=== PATIENT | female | born 1945 | race Caucasian/White ===

== ENCOUNTER 2019-10-29 09:49 | Emergency (ER) | payer MEDICARE, BC, SELFPAY ==
[2019-10-29 09:57] VITALS: BP 150/71; PULSE 90; RESP 16; TEMP 36.7; O2SAT 100
--- NOTE | 2019-10-29 10:03 | ED.SKABFB ---
HPI - Skin/Abscess/Foreign Bdy General Chief complaint: Skin/Abscess/Foreign Body Stated complaint: itching on right hand Time Seen by Provider: 10/29/19 10:03 Source: patient and RN notes reviewed History of Present Illness HPI narrative: Patient is a 74-year-old female who presents the urgent care with complaints of right hand redness and itching. Patient states that she got stung by a something yesterday and has been using Benadryl cream and itch relief cream. Patient states she has not taken anything oral for her symptoms. Denies of any fever, nausea, vomiting. No other acute complaints. No acute distress noted. Patient read the plan of care. Related Data Home Medications Medication Instructions Recorded Confirmed bupropion HCl 150 mg 24 hr tablet, 150 mg PO QAM 01/02/19 10/29/19 extended release dextroamphetamine 20 mg tablet 20 mg PO DAILY 01/02/19 10/29/19 ibandronate 150 mg tablet 150 mg PO MONTHLY 01/02/19 10/29/19 levothyroxine 100 mcg tablet 100 mcg PO DAILY 01/02/19 10/29/19 liothyronine 5 mcg tablet 5 mcg PO DAILY 01/02/19 10/29/19 lorazepam 1 mg tablet 1 mg PO TID PRN 01/02/19 10/29/19 lorazepam 2 mg tablet 2 mg PO TID PRN 01/02/19 10/29/19 oxycodone-acetaminophen 10 mg-325 1 tablet PO Q8H PRN 01/02/19 10/29/19 mg tablet vilazodone 40 mg tablet 40 mg PO DAILY 01/02/19 10/29/19 Allergies Allergy/AdvReac Type Severity Reaction Status Date / Time pneumococcal vaccine Allergy Unknown Rash Verified 10/29/19 09:56 Sulfa (Sulfonamide Allergy Unknown Rash Verified 10/29/19 09:56 Antibiotics) Review of Systems Review of Systems: Narrative: CONSTITUTIONAL: Denies fever, chills, or sweats. EYES: Denies visual changes, redness, or discharge. ENT: Denies rhinorrhea, congestion, sore throat, or otalgia. CARDIOVASCULAR: Denies chest pain, palpitations, or edema. RESPIRATORY: Denies cough or dyspnea. GASTROINTESTINAL: Denies abdominal pain, nausea, vomiting, or diarrhea. GENITOURINARY: Denies dysuria or hematuria. SKIN: Reports of redness and itching to the right hand due to insect bite MUSCULOSKELETAL: Denies back pain, joint pain, or myalgia. NEUROLOGIC: Denies headache, numbness, or weakness. All other systems reviewed are negative, except as documented in HPI. [facility] Surgical History (Updated 01/02/19 @ 13:19 by Mary Mckeon [facility]) H/O shoulder surgery right History of bladder suspension procedure Social History Social History Smoking status: Never smoker Alcohol intake: never Comments At the time of my signature, I reviewed and agree with the nursing past medical, surgical, social, and family history. There is no relevant family history pertinent to the patient complaint. Exam Narrative: Exam Narrative: GENERAL: This is a well-nourished, well-developed patient, in no apparent distress. HEAD: normocephalic, atraumatic. EYES: PERRL. Sclera clear/white. Vision is grossly intact. EARS: External ears normal NOSE: External nose normal with no obvious nasal discharge, nares without redness, no rhinorrhea. THROAT: Mucous membranes moist NECK: Neck supple SKIN: Moderate erythema measuring approximately 5 x 10 cm to the lateral right hand NEURO: awake, alert, and oriented to person, place and time. There were no obvious focal neurologic abnormalities. EXTREMITIES: Mild edema to right hand with positive strong right radial pulse with capillary refill less than 2 seconds. Range of motion within normal limits without any notable deformity Course Vital Signs Vital signs: Vital Signs Temperature 98.1 F 10/29/19 09:57 Pulse Rate 90 10/29/19 09:57 Respiratory Rate 16 10/29/19 09:57 Blood Pressure 150/71 H 10/29/19 09:57 Pulse Oximetry 100 10/29/19 09:57 Temperature 98.1 F 10/29/19 09:57 Pulse Rate 90 10/29/19 09:57 Respiratory Rate 16 10/29/19 09:57 Blood Pressure 150/71 H 10/29/19 09:57 Pulse Oximetry 100 10/29/19 09:57 Reviewed?patient is
== END 2019-10-29 10:15 | disposition home or self-care (01) ==
PROVIDERS: Emergency Provider Nurse Practitioner Family
DX: T63.481A Toxic effect of venom of other arthropod, accidental (unintentional), initial encounter (principal)
CPT/HCPCS: 99213; G0463

== ENCOUNTER 2020-06-22 13:01 | Outpatient (CLI) | payer MEDICARE, BC, SELFPAY ==
--- NOTE | ~2020-06-22 | MR_ITS ---
EXAMINATION: MR lumbar spine wo con DATE: 06/22/2020 13:45 INDICATION: Low back pain. TECHNIQUE: Magnetic resonance imaging (MRI) of the lumbar spine was performed without intravenous con trast. Sequences included sagittal T2-weighted FSE, sagittal T2-weighted FS FSE, sagittal T1-weighted FSE, and axial T2-weighted FSE. COMPARISON: CT abdomen and pelvis 11/28/2018 FINDINGS: There is 25 degrees levoscoliosis of thoracolumbar spine. There is 3 mm retrolisthesis of L 3 on L4. There is 4 mm anterolisthesis of L5 on S1. There is mild chronic height loss of L5 vertebral body posteriorly. There is severely decreased disc height from L1-L2 through L5-S1 with endplate rem odeling. There is interbody fusion at L2-L3. The distal spinal cord signal intensity is normal. The c onus medullaris is at L1. Again seen are cysts in the liver and kidneys. The following disc levels ar e specifically discussed: L1-L2: The disc is bulging. There is severe right and mild left facet joint osteoarthritis. There is mild bilateral neural foraminal stenosis. There is mild central canal stenosis. L2-L3: The disc is bulging. There is mild bilateral facet joint osteoarthritis. There is mild right n eural foraminal stenosis. There is mild central canal stenosis. L3-L4: The disc is bulging. There is severe bilateral facet joint osteoarthritis. There is mild right and severe left neural foraminal stenosis. There is mild central canal stenosis. L4-L5: The disc is bulging. There is moderate right and severe left facet joint osteoarthritis. There is mild right and moderate left neural foraminal stenosis. There is mild central canal stenosis. L5-S1: The disc is bulging. There is severe bilateral facet joint osteoarthritis. There is mild right and moderate left neural foraminal stenosis. There is mild central canal stenosis. IMPRESSION: 1. Severe lumbar spondylosis. 2. Interbody fusion at L2-L3. 3. Thoracolumbar levoscoliosis. Reviewed, dictated and finalized at location A.
== END 2020-06-22 13:02 | disposition home or self-care (01) ==
DX: M47.896 Other spondylosis, lumbar region (principal); Z98.1 Arthrodesis status
CPT/HCPCS: 72148

== ENCOUNTER 2021-01-01 08:44 | Emergency (ER) | payer MEDICARE, BC, SELFPAY ==
--- NOTE | ~2021-01-01 | XR_ITS ---
EXAMINATION: XR ankle LT min 3V DATE: 01/01/2021 09:08 INDICATION: Lateral left ankle pain TECHNIQUE: Anteroposterior, oblique, mortise, and lateral views of the left ankle were obtained. COMPARISON: None. FINDINGS: Nondisplaced transverse fracture of the lateral malleolus which extends to the medial cortex proximal ly 1 cm below the level of the joint line. No other fractures identified. Alignment remains essential ly anatomic with a congruent ankle mortise. Joint spaces are normal. No left ankle joint effusion. Sm all Achilles and plantar calcaneal enthesophytes with small enthesopathic ossicle at the distal Achil les tendon. Prominent soft tissue swelling overlying the lateral malleolus. IMPRESSION: 1. Nondisplaced transverse fracture of the distal lateral malleolus consistent with a Laureano type A in jury pattern. Reviewed, dictated and finalized at location A. IMPRESSION: 1. Nondisplaced transverse fracture of the distal lateral malleolus consistent with a Laureano type A injury pattern.
[2021-01-01 08:51] VITALS: BP 134/66; PULSE 80; RESP 14; TEMP 36.8; O2SAT 99
--- NOTE | 2021-01-01 10:18 | ED.LOWEXIN ---
HPI - Extremity Injury (Lower) General Chief Complaint: Extremity Injury, Lower Stated Complaint: L ANKLE PAIN AND SWELLING Time Seen by Provider: 01/01/21 08:54 History of Present Illness HPI Narrative: Patient is a 75-year-old female who presents ER with left ankle pain. She slipped down one step last night and suffered inversion injury. She has been able to bear weight on toe-touch. No numbness or tingling. Swelling over the lateral aspect with some mild bruising. Related Data Home Medications Medication Instructions Recorded Confirmed bupropion HCl 150 mg 24 hr tablet, 150 mg PO QAM 01/02/19 10/29/19 extended release dextroamphetamine 20 mg tablet 20 mg PO DAILY 01/02/19 10/29/19 ibandronate 150 mg tablet 150 mg PO MONTHLY 01/02/19 10/29/19 levothyroxine 100 mcg tablet 100 mcg PO DAILY 01/02/19 10/29/19 liothyronine 5 mcg tablet 5 mcg PO DAILY 01/02/19 10/29/19 lorazepam 1 mg tablet 1 mg PO TID PRN 01/02/19 10/29/19 lorazepam 2 mg tablet 2 mg PO TID PRN 01/02/19 10/29/19 oxycodone-acetaminophen 10 mg-325 1 tablet PO Q8H PRN 01/02/19 10/29/19 mg tablet vilazodone 40 mg tablet 40 mg PO DAILY 01/02/19 10/29/19 Allergies Allergy/AdvReac Type Severity Reaction Status Date / Time pneumococcal vaccine Allergy Unknown Rash Verified 01/01/21 08:58 Sulfa (Sulfonamide Allergy Unknown Rash Verified 01/01/21 08:58 Antibiotics) celecoxib [From Celebrex] Allergy Rash Verified 01/01/21 08:58 Review of Systems Review of Systems: All systems reviewed & are unremarkable except as noted in HPI and below Constitutional: Constitutional: Denies chills and Denies fever(s) Musculoskeletal: Musculoskeletal: Reports arthralgias and Reports joint swelling Neurologic: Denies syncope, Denies focal weakness and Denies numbness PMFSH Past Medical History Medical History (Updated 01/01/21 @ 10:22 by Marcin Hathaway MD) Anxiety Depression Fibromyalgia History of open sigmoidectomy Hypothyroidism Mass of kidney benign, robotic resection Nasal fracture Osteoporosis Small bowel obstruction partial Surgical History Surgical History (Updated 01/02/19 @ 13:19 by Mary Mckeon [facility]) H/O shoulder surgery right History of bladder suspension procedure Social History Social History Smoking status: Never smoker Alcohol intake: never Exam Narrative: GENERAL: Well-appearing, well-nourished, and in no acute distress. HEAD: Normocephalic, atraumatic. EXTREMITIES: Normal range of motion. Swelling lateral aspect of the left ankle with tenderness at the base of the lateral malleolus. No tenderness of the foot. Normal dorsalis pedis pulses. SKIN: Warm, dry, no rash. NEURO: No focal deficits. Alert and oriented x3. PSYCH: Normal mood and affect. Course Course Emergency Course: Informed of results. Splint applied by patient pediatric critical care nurse. Vital Signs Vital signs: Vital Signs Temperature 98.3 F 01/01/21 08:51 Pulse Rate 80 01/01/21 08:51 Respiratory Rate 14 01/01/21 08:51 Blood Pressure 134/66 01/01/21 08:51 Pulse Oximetry 99 01/01/21 08:51 Temperature 98.3 F 01/01/21 08:51 Pulse Rate 80 01/01/21 08:51 Respiratory Rate 14 01/01/21 08:51 Blood Pressure 134/66 01/01/21 08:51 Pulse Oximetry 99 01/01/21 08:51 Procedures Orthopedic Splinting/Casting Injury #1: Splinting/Casting Date: 01/01/21 Splinting/Casting Time: 10:20 Side: left Lower Extremity Injury Location: ankle Lower Extremity Immobilizer: stirrup splint Splint: customized in ED Pre-Procedure Neuro Vascular Exam: normal Post-Procedure Neuro Vascular Exam: normal Other Orthopedic Equipment: crutches Discharge Plan Discharge Clinical Impression: Fracture, ankle Patient Disposition: Home, Self-Care Condition: Stable Instructions: Ankle Fracture (ED), Crutch Instructions (ED) Prescriptions: New hydrocodone-acetaminophen 5-325 mg tablet
[2021-01-01 10:57] VITALS: BP 141/69; PULSE 80; RESP 14; TEMP 36.8; O2SAT 100
== END 2021-01-01 10:58 | disposition home or self-care (01) ==
PROVIDERS: Emergency Provider Emergency Medicine
DX: S82.65XA Nondisplaced fracture of lateral malleolus of left fibula, initial encounter for closed fracture (principal); F32.9 Major depressive disorder, single episode, unspecified; M79.7 Fibromyalgia; E03.9 Hypothyroidism, unspecified; M81.0 Age-related osteoporosis without current pathological fracture; X50.1XXA Overexertion from prolonged static or awkward postures, initial encounter
CPT/HCPCS: 29515; 73610; 99284

== ENCOUNTER 2021-03-07 13:48 | Outpatient (RCR) | payer MEDICARE, BC, SELFPAY ==
--- NOTE | 2021-03-07 14:53 | PTOPEVAL ---
PHYSICAL THERAPY EVALUATION/DISCHARGE 03-07-21 Thank you for referring Abimbola Rae to [facility]. The evaluation was completed and she was issued a home exercise program. Additional PT is not indicated, therefore she will be discharged at this time. Please review, sign, date and return this evaluation/discharge report BREANA. I agree with and certify that the following plan of care is medically necessary. Referring Physician Date Attending Provider: Kwan Scott MD PT Outpatient Evaluation Start: 03/07/21 14:00 Document 03/07/21 13:55 NEY (Rec: 03/07/21 14:53 NEY [id number]) Past Medical History Source of Past Medical History Patient Neurological History Hx Neurological Disorders No Significant History Cardiovascular History Hx Cardiac Disorders No Significant History Respiratory History Hx Respiratory Disorders No Significant History Gastrointestinal History Hx Other Gastrointestinal Disorders Yes: surgical repair of perforated colon Genitourinary History Hx Genitourinary Disorders No Significant History Musculoskeletal History Hx Back Pain Yes: L sciatica Hx Other Musculoskeletal Disorders Yes: this admit of L lateral malleoli fracture--non surgical Hematological History Hx Hematological Disorders No Significant History Endocrine History Hx Hypothyroidism Yes: meds HEENT History Hx Tonsillectomy Yes Reproductive History Hx Post Menopausal Yes Evaluation Information Problem Diagnosis L lateral malleoli fracture- non surgical Onset 12-31-20 Subjective Information fell on one step in her home; Query Text:As Reported By Patient/ wore walking boot until 02-16 Family -, dr said could walk without boot; not wearing the boot at all anymore; have not been doing any exercises for ankle, just walking; reports she is not having any problems and do not really think she needs any therapy for her ankle Prior Level of Function Activity Level (Last 3 Months) Occupation retired Home Setting Home Type House,Multiple Levels Mobility Assistive Devices (Used Last 3 None,Cane,Walker, Wheeled Months) Comments Additional Prior Level of Function is doing all her home tasks; Comments is going into her basement without any problems on stairs ; did use cane o
== END 2021-03-08 12:01 | disposition home or self-care (01) ==
LOC: ANHPT 13:48
PROVIDERS: Visit Provider Orthopaedic Surgery
DX: S82.892D Other fracture of left lower leg, subsequent encounter for closed fracture with routine healing (principal)
CPT/HCPCS: 97161

== ENCOUNTER 2023-09-11 09:41 | Emergency (ER) | payer MEDICARE, BC, SELFPAY ==
[2023-09-11] VITALS (8 sets, daily range): BP systolic 128–154; BP diastolic 76–88; PULSE 71–81; RESP 9–15; TEMP 36.5–36.9; O2SAT 100
--- NOTE | ~2023-09-11 | CT_ITS ---
EXAMINATION: CT brain wo con DATE: 09/11/2023 10:09 INDICATION: Dizziness TECHNIQUE: Computed tomography (CT) of the head was performed without intravenous contrast. Sagittal and coronal reconstructions were performed. The mA was adjusted according to patient size. Iterative reconstruction technique was employed. The dose-length product was 605.33 mGy-cm. COMPARISON: head CT dated 03/20/2018 FINDINGS: No acute intracranial hemorrhage, acute infarction or abnormal extra axial fluid collection. There is mild scattered white matter hypoattenuation consistent with chronic small vessel ischemic disease. S ymmetric prominence of the sulci consistent with mild age-appropriate diffuse cerebral volume loss. V entricles are normal and symmetric. No mass/mass effect. Changes of bilateral intraocular lens replac ement. The orbits, paranasal sinuses and mastoid air cells are normal. IMPRESSION: 1. . No acute intracranial process. 2. Age-related changes including mild diffuse on loss and mild scattered white matter hypoattenuation consistent with chronic small vessel ischemic disease. Reviewed, dictated and finalized at location A.
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
--- NOTE | 2023-09-11 09:48 | ECG_ITS ---
Test Date: 2023-09-11 09:57:59 Measurements Intervals [place] Rate: 75 P: 52 NM: 196 QRS: -15 QRSD: 96 T: 46 QT: 367 QTc: 412 Interpretive Statements SINUS RHYTHM LEFT ATRIAL ENLARGEMENT BORDERLINE ECG No previous ECG available for comparison Electronically Signed On 09-11-2023 11:48:57 CDT by Brooks Andersen D.O.
[2023-09-11 10:02] LABS: Basophils Percent Auto 0.4 % (0.2-1.2); Eosinophils Absolute Auto 0.1 K/mm3 (0-0.3); Eosinophils Percent Auto 1.5 % (0-4.4); Hematocrit 38.3 % (37.0-47.0); Hemoglobin 12.7 g/dL (12.0-15.0); Immature Granulocyte Absolute 0.02 K/mm3 (0.00-0.031); Immature Granulocyte Percent A 0.4 % (0-0.5); Lymphocytes Absolute Auto 1.47 K/mm3 (0.9-3.2); Lymphocytes Percent Auto 28.3 % (18.3-44.2); Mean Corpuscular HGB Conc 33.2 g/dl (32-36); Mean Corpuscular Volume 99.5 fl (80-100); Mean Platelet Volume 8.5 fl (7.4-10.4); Monocytes Absolute Auto 0.5 K/mm3 (0.1-0.6); Monocytes Percent Auto 8.9 % (2.6-8.5); Neutrophils Absolute Auto 3.1 K/mm3 (1.3-6.7); Neutrophils Percent Auto 60.5 % (45.5-73.1); Platelet Count Result 265 k/mm3 (150-375); Red Blood Count 3.85 M/mm3 (4.2-5.4); White Blood Count 5.2 K/mm3 (4.5-10.0)
[2023-09-11 10:13] LABS: Alanine Aminotransferase 20 U/L (6-35); Albumin Level 4.5 g/dL (3.5-5.1); Alkaline Phosphatase 72 U/L (38-126); Anion Gap 7 mmol/L (4-12); Aspartate Amino Transferase 31 U/L (14-36); Bilirubin,Total 0.5 mg/dL (0.2-1.3); Blood Urea Nitrogen 19 mg/dL (7-17); Calcium 9.3 mg/dL (8.4-10.2); Carbon Dioxide 31 mmol/L (22-30); Chloride 96 mmol/L (98-107); Estimated CRCL calculation 44 ml/min; Estimated Glomerular Filt Rate > 60; Glucose 90 mg/dL (65-110); Potassium 4.2 mmol/L (3.4-5.0); Sodium 134 mmol/L (137-145)
[2023-09-11] MEDS: SODIUM CHLORIDE 0.9% IV 500 ML 999 ML IV CONT ×2 (10:15→12:02)
[2023-09-11] MEDS: ONDANSETRON INJ 4 MG/2 ML VIAL IV PUSH (10:16)
[2023-09-11] MEDS: MECLIZINE HCL 25 MG TABLET PO (10:17)
--- NOTE | 2023-09-11 10:17 | ED.DIZZY ---
HPI - Dizziness General Chief Complaint: Dizziness Stated Complaint: dizzy Time Seen by Provider: 09/11/23 09:53 Source: patient Mode of arrival: ambulatory Limitations: no limitations History of Present Illness HPI Narrative: This is a 77-year-old female that presents to the emergency department for dizziness. Reports she woke up this morning and sat up. She felt like she was on a boat. Reports a mild headache currently, reports getting a little dizzy again upon sitting up in bed here in the ED. Reports some nausea. Denies vision changes, vomiting, numbness, weakness, chest pain, shortness of breath, palpitations. Related Data Home Medications Medication Instructions Recorded Confirmed aspirin 81 mg tablet,delayed 81 mg PO DAILY 01/04/21 03/16/21 release (Adult Aspirin Regimen) bupropion HCl 300 mg 24 hr tablet, 300 mg PO QAM 01/04/21 03/16/21 extended release (Wellbutrin XL) ibandronate 150 mg tablet (Boniva) 150 mg PO MONTHLY 01/04/21 03/16/21 levothyroxine 50 mcg tablet 50 mcg PO DAILY 01/04/21 03/16/21 (Synthroid) liothyronine 5 mcg tablet (Cytomel) 5 mcg PO DAILY 01/04/21 03/16/21 lorazepam 1 mg tablet 1 mg PO DAILY PRN 01/04/21 03/16/21 turmeric 100 mg-arpit 150 cap PO 01/04/21 03/16/21 mg-olive 50 mg-oreg 150 mg-capryl capsule vilazodone 40 mg tablet (Viibryd) 40 mg PO DAILY 01/04/21 03/16/21 Allergies Allergy/AdvReac Type Severity Reaction Status Date / Time pneumococcal vaccine Allergy Unknown Rash Verified 09/11/23 09:47 Sulfa (Sulfonamide Allergy Unknown Rash Verified 09/11/23 09:47 Antibiotics) celecoxib [From Celebrex] Allergy Rash Verified 09/11/23 09:47 Review of Systems Review of Systems: CONSTITUTIONAL: Denies fever EYES: Denies visual changes CARDIOVASCULAR: Denies chest pain, palpitations, or edema. RESPIRATORY: Denies dyspnea. GASTROINTESTINAL: Reports nausea. Denies vomiting NEUROLOGIC: Reports headache. Denies numbness, or weakness. All systems reviewed & are unremarkable except as noted in HPI and below PMFSH Past Medical History Medical History (Updated 09/11/23 @ 13:46 by Ginger Abel PA-C) Anxiety Depression Fibromyalgia History of open sigmoidectomy Hypothyroidism Mass of kidney benign, robotic resection Nasal fracture Nondisplaced fracture of lateral malleolus of left fibula Laureano A Osteoporosis Small bowel obstruction partial Surgical History Surgical History H/O shoulder surgery right History of bladder suspension procedure Family History Family History Other Depression Social History Social History Smoking status: Never smoker Alcohol intake: never Living arrangements: with family Occupation/Education: retired Gender identity (if verbalized by the patient): Female Exam Narrative: GENERAL: Well-appearing, well-nourished, and in no acute distress. HEAD: Normocephalic, atraumatic. EYES: PERRLA and EOMI. ENT: Nares clear, no rhinorrhea or epistaxis. Mucous membranes moist. Oropharynx without tonsillar hypertrophy exudate or other lesions. Bilateral TMs pearly landaverde non-bulging NECK: Supple. No adenopathy or masses. No JVD CHEST: Clear to auscultation. No respiratory distress. No wheezes rales or rhonchi HEART: Regular rate and rhythm. No murmur heard. Normal peripheral pulses. EXTREMITIES: Normal range of motion. No edema. Strength equal in bilateral upper and lower extremities (5/5) SKIN: Warm, dry, no rash. NEURO: No focal deficits. Alert and oriented x3. Cranial nerves 2-12 grossly intact. Normal [id number] PSYCH: Normal mood and affect Course Course Emergency Course: Patient updated on her workup. Reports much improvement, but still having some symptoms. Offered admission for further evaluation/management. She declines at this time Vital
[2023-09-11] MEDS: ACETAMINOPHEN 500 MG TABLET 1000 MG PO (10:40)
[2023-09-11 11:04] LABS: Appearance Urine Clear (Clear); Bacteria Urine 4+ /hpf; Bilirubin Urine Negative (Negative); Blood Urine Negative (Negative); Color Urine Yellow (Yellow); Glucose Urine UA Negative (Negative); Ketones Urine Negative (Negative); Leukocyte Esterase Ur Trace LEU/UL (Negative); Nitrate Urine Negative (Negative); Non Pathogenic Casts 0-2; Protein Urine Negative (Negative); RBC Urine 0-2 /hpf (0-2); Specific Grav Ur 1.003 (1.001-1.035); Squamous Epithelial Cell Urine None Seen /hpf (Few); Urobilinogen Urine 0.2 mg/dL (<2.0); WBC Urine 0-5 /hpf (0-3)
[2023-09-11 11:22] LABS: Add Urine Microscopic? YES
[2023-09-11] MEDS: diazePAM INJ (*CRX) 10 MG/2 ML SYRINGE 2.5 MG IV PUSH (11:53)
== END 2023-09-11 14:07 | disposition home or self-care (01) ==
PROVIDERS: Emergency Medicine; Emergency Provider Physician Assistant; PCP Family Medicine Sports Medicine
DX: R42 Dizziness and giddiness (principal); I95.9 Hypotension, unspecified; R82.71 Bacteriuria; F41.9 Anxiety disorder, unspecified; F32.A Depression, unspecified; M79.7 Fibromyalgia; E03.9 Hypothyroidism, unspecified; N28.89 Other specified disorders of kidney and ureter
CPT/HCPCS: 36415; 70450; 71046; 80053; 81001; 84443; 85025; 87077; 87086; 87088; 87186; 93005; 96361; 96374; 96375; 99284; A9270; J2405; J3360; J7040

== ENCOUNTER 2024-10-11 20:47 | Emergency (ER) | payer MEDICARE, BC, SELFPAY ==
--- NOTE | ~2024-10-11 | CT_ITS ---
EXAMINATION: CT cervical spine wo con DATE: 10/11/2024 21:59 INDICATION: fall, HI, pain TECHNIQUE: Computed tomography (CT) of the cervical spine was performed without intravenous contrast. Automated exposure control and iterative reconstruction technique were employed. The dose-length pro duct was 133.65 mGy-cm. COMPARISON: 03/20/2018. FINDINGS: Vertebral Body Alignment: Reversed lordosis centered at C5. Stable multilevel degenerative grade 1 li stheses. Craniocervical and atlantoaxial alignment: Moderate degenerative change. Alignment intact. Osseous structures/fracture: No evidence of a lytic or blastic process in the visualized spine. No e vidence of acute fracture. Mild height loss at C5 and C6, unchanged. Cervical soft tissues: The paraspinal soft tissues planes are maintained. Biapical pleural scarring. Degenerative changes: Degenerative changes, without severe neural foraminal or central canal narrowin g. IMPRESSION: No acute fracture or traumatic malalignment in the cervical spine. Reviewed, dictated and finalized at location K.
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
--- NOTE | ~2024-10-11 | CT_ITS ---
EXAMINATION: CT brain wo con DATE: 10/11/2024 21:59 INDICATION: fall, HI, pain . TECHNIQUE: Computed tomography (CT) of the head was performed without intravenous contrast. The mA wa s adjusted according to patient size. Iterative reconstruction technique was employed. The dose-lengt h product was 681.00 mGy-cm. COMPARISON: 09/11/2023. FINDINGS: No acute intracranial hemorrhage or extra-axial fluid collection. No hydrocephalus, mass, or herniation. No acute ischemic infarct. Unremarkable dural venous sinus attenuation. No acute osseous abnormality. Midline frontal scalp laceration, extending to bone. The aerated spaces are clear. Mild atrophy and chronic white matter change. Atherosclerotic intracranial calcification. Bilateral l ens replacements. IMPRESSION: No acute intracranial process. Midline frontal scalp laceration extending to bone. No subjacent osseous abnormality detected. Reviewed, dictated and finalized at location K. IMPRESSION: No acute intracranial process. Midline frontal scalp laceration extending to bone. No subjacent osseous abnorm ality detected.
--- OUTSIDE RECORDS SUMMARY | 2024-10-11 20:49 | XMS_ITS | Encounter Summary ---
Author Organization [facility] Address [address] [place] [address] Phone Care Team Providers Care Job Printer Name Role Phone Brandi Tillman MD Primary Care Provider Brandi Tillman MD Primary Care Provider Brandi Tillman MD Primary Care Provider Brandi Tillman MD Primary Care Provider Million, Rosa VAUGHN Primary Care Provider +[phone]- [phone] Brandi Tillman MD Primary Care Provider Million, Rosa VAUGHN Primary Care Provider +[phone]- [phone] Brandi Tillman MD Primary Care Provider Million, Rosa VAUGHN Primary Care Provider [phone]- [phone] Brandi Tillman MD Primary Care Provider Million, Rosa VAUGHN Primary Care Provider +[phone] Brandi Tillman MD Primary Care Provider Unknown, Notinfile Primary Care Provider Unavail able Brandi Tillman MD Unavailable +[phone] Romelia Martinez RN Unavailable Unavailab Agatha Carl RN Unavailable + [phone] Isaura Bowie RN Unavailable +[phone] Brandi Tillman MD Primary Care Provider Nina Marbella Cheung Unavailable +[phone] Agatha Smith MD Primary Care Provider Lionel Santo MD Unavailable [phone] Jaime Sampson MD Unavailable +[phone] Miguel Fall MD Unavailable [phone] No, Physician Primary Care Provider [phone] Ej Madden MD Primary Care Provi rama Benitez Solano OT Unavailable Unavailable Carlos Magana MD Unavailable +[phone] Encounter Details Date Type Department Care Team (Latest Contact Info) Description 01/10/2012 Orders Only [facility] EML Scanning, Provider Social History Tobacco Use Types Packs/Day Years Used Date Smoking Tobacco: Never Assessed Comments Unknown Sex and Gender Information Value Date Recorded Sex Assigned at Not on file 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 Gender Identity Not on file Sexual Orientation Not on file documented as of this encounter Plan of Treatment Not on file documented as of this encounter Procedures Procedure Name Priority Date/Time Associated Diagnosis Comments SCAN - RADIOLOGY/IMAGING 01/10/2012 documented in this encounter Results * SCAN - RADIOLOGY/IMAGING (01/10/2012) Anatomical Region Laterality Modality Other us Provider Scanning Final Result documented in this encounter Visit Diagnoses Not on filedocumented in this encounter Care Teams Job Printer Relationship Specialty Start Date End Date Brandi Tillman MD PCP - General 08/27/06 01/11/12 Brandi Tillman MD PCP - General 01/12/12 10/23/12 Brandi Tillman MD PCP - General 10/24/12 05/02/16 Brandi Tillman MD PCP - General 05/03/16 06/13/16 Million, RODERICK Higginbotham PCP - General 06/14/16 08/21/16 Brandi Tillman MD PCP - General Internal Medicine 09/15/16 09/21/16 Million, RODERICK Higginbotham PCP - General 09/22/16 10/18/16 Brandi Tillman MD PCP - General 10/19/16 10/25/16 Million, RODERICK Higginbotham PCP - General 10/26/16 10/26/16 Brandi Tillman MD PCP - General 10/27/16 12/26/16 Million, RODERICK Higginbotham PCP - General 12/27/16 02/06/17 Brandi Tillman MD PCP - General Internal Medicine 02/07/17 09/15/18 Unknown, Notinfile PCP - General 09/16/18 12/31/18 Brandi Tillman MD PCP - General Internal Medicine 01/01/19 02/12/22 Agatha Smith MD [address] [facility] [address] [place], [place] [id number] PCP - General Family Practice 02/13/22 12/13/23 No, Physician PCP - General 12/14/23 01/27/24 Ej Madden MD [address] [address] PCP - General Family Practice 01/28/24 Brandi Tillman MD Internal Medicine 09/16/18 02/12/22 Romelia Martinez, SMITHA Registered Nurse Pain Management 05/22/17 Agatha Orozco, SMITHA [address] [place], [place] [id number] Adjunct Professor Of [place] History 12/26/18 06/13/20 Isaura Bowie, RN [address] [place], [place] [id number] Secondary Liver Coordinator 12/26/18 06/13/20 Marbella Wood DO [address] [facility] [address] [place], [place] [id number] Consulting Physician Endocrinology Diabetes & Metabolism 06/07/20 Lionel Santo MD [address] [place] [address] Referring Physician Geriatric Psychiatry 02/13/22 Jaime Sampson MD [address] [facility] [address] [place] [address] Referring Physician Transplant Hepatology 02/13/22 Miguel Fall MD [address] [facility] [address] [place] [address] Consulting Physician Physical Medicine and Rehabilitation 02/13/22 Benitez Solano, OT Occupational Therapist Occupational Therapy 08/20/24 Carlos Magana MD [address] [place] [address] Surgeon Orthopedic Surgery 08/22/24 documented as of this encounter
--- OUTSIDE RECORDS SUMMARY | 2024-10-11 20:49 | XMS_ITS | Encounter Summary ---
Author Organization [facility] Address [address] [place] [address] Phone Care Team Providers Care Ortho Nurse Name Role Phone Brandi Tillman MD Primary Care Provider Brandi Tillman MD Primary Care Provider Brandi Tillman MD Primary Care Provider Brandi Tillman MD Primary Care Provider Million, Rosa VAUGHN Primary Care Provider [phone]- [phone] Brandi Tillman MD Primary Care Provider Million, Rosa VAUGHN Primary Care Provider +[phone]- [phone] Brandi Tillman MD Primary Care Provider Million, Rosa VAUGHN Primary Care Provider +[phone]- [phone] Brandi Tillman MD Primary Care Provider Million, Rosa VAUGHN Primary Care Provider [phone]- [phone] Brandi Tillman MD Primary Care Provider Unknown, Notinfile Primary Care Provider Unavail able Brandi Tillman MD Unavailable +[phone] Romelia Martinez RN Unavailable Unavailab Agatha Carl RN Unavailable + [phone] Isaura Bowie RN Unavailable +[phone] Brandi Tillman MD Primary Care Provider NinaMarbella veloz Unavailable +[phone] Agatha Smith MD Primary Care Provider Lionel Santo MD Unavailable Jaime Sampson MD Unavailable +[phone] Miguel Fall MD Unavailable [phone] No, Physician Primary Care Provider [phone] Ej Madden MD Primary Care Provi rama Benitez Solano OT Unavailable Unavailable Carlos Magana MD Unavailable [phone] Encounter Details Date Type Department Care Team (Latest Contact Info) Description 12/06/2007 Orders Only [facility] IM EML Scanning, Provider Social History Tobacco Use Types Packs/Day Years Used Date Smoking Tobacco: Never Assessed Comments Unknown Sex and Gender Information Value Date Recorded Sex Assigned at Not on file 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 Gender Identity Not on file Sexual Orientation Not on file documented as of this encounter Plan of Treatment Not on file documented as of this encounter Procedures Procedure Name Priority Date/Time Associated Diagnosis Comments SCAN - RADIOLOGY/IMAGING 12/06/2007 documented in this encounter Results * SCAN - RADIOLOGY/IMAGING (12/06/2007) Anatomical Region Laterality Modality Other us Provider Scanning Final Result documented in this encounter Visit Diagnoses Not on filedocumented in this encounter Care Teams Ortho Nurse Relationship Specialty Start Date End Date Brandi [...] Medicine 01/01/19 02/12/22 Agatha Smith MD [address] [facility] [address] [place], [place] [id number] PCP - General Family Practice 02/13/22 12/13/23 No, Physician PCP - General 12/14/23 01/27/24 Ej Madden MD [address] [address] PCP - General Family Practice 01/28/24 Brandi Tillman MD Internal Medicine 09/16/18 02/12/22 Romelia Martinez, SMITHA Registered Nurse Pain Management 05/22/17 Agatha Orozco, SMITHA [address] [place], [place] [id number] Diver Pumper 12/26/18 06/13/20 Isaura Bowie, RN [address] [place], [place] [id number] Secondary Liver Coordinator 12/26/18 06/13/20 Marbella Wood DO [address] [facility] [address] [place], [place] [id number] Consulting Physician Endocrinology Diabetes & Metabolism 06/07/20 Lionel Santo MD [address] [place] [address] Referring Physician Geriatric Psychiatry 02/13/22 Jaime Sampson MD [address] [facility] [address] [place] [address] Referring Physician Transplant Hepatology 02/13/22 Miguel Fall MD [address] [facility] [address] [place] [address] Consulting Physician Physical Medicine and Rehabilitation 02/13/22 Benitez Solano, OT Occupational Therapist Occupational Therapy 08/20/24 Carlos Magana MD [address] [place] [address] Surgeon Orthopedic Surgery 08/22/24 documented as of this encounter
--- OUTSIDE RECORDS SUMMARY | 2024-10-11 20:49 | XMS_ITS | Encounter Summary ---
Author Organization [facility] Address [address] [place] [address] Phone Care Team Providers Care Levelman Name Role Phone Brandi Tillman MD Primary Care Provider Brandi Tillman MD Primary Care Provider Brandi Tillman MD Primary Care Provider Brandi Tillman MD Primary Care Provider Million, Rosa VAUGHN Primary Care Provider [phone]- [phone] Brandi Tillman MD Primary Care Provider Million, Rosa VAUGHN Primary Care Provider [phone]- [phone] Brandi Tillman MD Primary Care Provider Million, Rosa VAUGHN Primary Care Provider [phone] Brandi Tillman MD Primary Care Provider Million, Rosa VAUGHN Primary Care Provider [phone]- [phone] Brandi Tillman MD Primary Care Provider Unknown, Notinfile Primary Care Provider Unavail able Brandi Tillman MD Unavailable [phone] Romelia Martinez RN Unavailable Unavailab Agatha Carl RN Unavailable + [phone] Isaura Bowie RN Unavailable [phone] Brandi Tillman MD Primary Care Provider NinaMarbella veloz Unavailable +[phone] Agatha Smith MD Primary Care Provider Lionel Santo MD Unavailable [phone] Jaime Sampson MD Unavailable [phone] Miguel Fall MD Unavailable [phone] No, Physician Primary Care Provider [phone] Ej Madden MD Primary Care Provi rama Benitez Solano OT Unavailable Unavailable Carlos Magana MD Unavailable [phone] Encounter Details Date Type Department Care Team (Latest Contact Info) Description 11/16/2005 Orders Only [facility] EML Scanning, Provider Social History Tobacco Use Types Packs/Day Years Used Date Smoking Tobacco: Never Assessed Comments Unknown Sex and Gender Information Value Date Recorded Sex Assigned at Not on file 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 Gender Identity Not on file Sexual Orientation Not on file documented as of this encounter Plan of Treatment Not on file documented as of this encounter Procedures Procedure Name Priority Date/Time Associated Diagnosis Comments SCAN - RADIOLOGY/IMAGING 11/16/2005 documented in this encounter Results * SCAN - RADIOLOGY/IMAGING (11/16/2005) Anatomical Region Laterality Modality Other us Provider Scanning Final Result documented in this encounter Visit Diagnoses Not on filedocumented in this encounter Care Teams Levelman Relationship Specialty Start Date End Date Brandi [...] Medicine 01/01/19 02/12/22 Agatha Smith MD [address] [facility] [address] [place], [place] [id number] PCP - General Family Practice 02/13/22 12/13/23 No, Physician PCP - General 12/14/23 01/27/24 Ej Madden MD [address] [address] PCP - General Family Practice 01/28/24 Brandi Tillman MD Internal Medicine 09/16/18 02/12/22 Romelia Martinez, SMITHA Registered Nurse Pain Management 05/22/17 Agatha Orozco, SMITHA [address] [place], [place] [id number] Aviculturist 12/26/18 06/13/20 Isaura Bowie, RN [address] [place], [place] [id number] Secondary Liver Coordinator 12/26/18 06/13/20 Marbella Wood DO [address] [facility] [address] [place], [place] [id number] Consulting Physician Endocrinology Diabetes & Metabolism 06/07/20 Lionel Santo MD [address] [place] [address] Referring Physician Geriatric Psychiatry 02/13/22 Jaime Sampson MD [address] [facility] [address] [place] [address] Referring Physician Transplant Hepatology 02/13/22 Miguel Fall MD [address] [facility] [address] [place] [address] Consulting Physician Physical Medicine and Rehabilitation 02/13/22 Benitez Solano, OT Occupational Therapist Occupational Therapy 08/20/24 Carlos Magana MD [address] [place] [address] Surgeon Orthopedic Surgery 08/22/24 documented as of this encounter
--- OUTSIDE RECORDS SUMMARY | 2024-10-11 20:49 | XMS_ITS | Encounter Summary ---
Author Organization [facility] Address [address] [place] [address] Phone Care Team Providers Care Biology Research Assistant Name Role Phone Brandi Tillman MD Primary Care Provider Brandi Tillman MD Primary Care Provider Brandi Tillman MD Primary Care Provider Brandi Tillman MD Primary Care Provider Million, Rosa VAUGHN Primary Care Provider [phone]- [phone] Brandi Tillman MD Primary Care Provider Million, Rosa VAUGHN Primary Care Provider +[phone]- [phone] Brandi Tillman MD Primary Care Provider Million, Rosa VAUGHN Primary Care Provider +[phone]- [phone] Brandi Tillman MD Primary Care Provider Million, Rosa VAUGHN Primary Care Provider +[phone]- [phone] Brandi Tillman MD Primary Care Provider Unknown, Notinfile Primary Care Provider Unavail able Brandi Tillman MD Unavailable [phone] Romelia Martinez RN Unavailable Unavailab Agatha Carl RN Unavailable + [phone] Isaura Bowie RN Unavailable [phone] Brandi Tillman MD Primary Care Provider NinaMarbella veloz Unavailable +[phone] Agatha Smith MD Primary Care Provider Lionel Santo MD Unavailable Jaime Sampson MD Unavailable +[phone] Miguel Fall MD Unavailable [phone] No, Physician Primary Care Provider Ej Madden MD Primary Care Provi rama Benitez Solano OT Unavailable Unavailable Carlos Magana MD Unavailable +[phone] Encounter Details Date Type Department Care Team (Latest Contact Info) Description 06/05/2001 Orders Only [facility] IM EML Scanning, Provider Social History Tobacco Use Types Packs/Day Years Used Date Smoking Tobacco: Never Assessed Comments Unknown Sex and Gender Information Value Date Recorded Sex Assigned at Not on file 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 Gender Identity Not on file Sexual Orientation Not on file documented as of this encounter Plan of Treatment Not on file documented as of this encounter Procedures Procedure Name Priority Date/Time Associated Diagnosis Comments SCAN - RADIOLOGY/IMAGING 06/05/2001 documented in this encounter Results * SCAN - RADIOLOGY/IMAGING (06/05/2001) Anatomical Region Laterality Modality Other us Provider Scanning Final Result documented in this encounter Visit Diagnoses Not on filedocumented in this encounter Care Teams Biology Research Assistant Relationship Specialty Start Date End Date Brandi [...] Medicine 01/01/19 02/12/22 Agatha Smith MD [address] [facility] [address] [place], [place] [id number] PCP - General Family Practice 02/13/22 12/13/23 No, Physician PCP - General 12/14/23 01/27/24 Ej Madden MD [address] [address] PCP - General Family Practice 01/28/24 Brandi Tillman MD Internal Medicine 09/16/18 02/12/22 Romelia Martinez, SMITHA Registered Nurse Pain Management 05/22/17 Agatha Orozco, SMITHA [address] [place], [place] [id number] Geodesy Teacher 12/26/18 06/13/20 Isaura Bowie, RN [address] [place], [place] [id number] Secondary Liver Coordinator 12/26/18 06/13/20 Marbella Wood DO [address] [facility] [address] [place], [place] [id number] Consulting Physician Endocrinology Diabetes & Metabolism 06/07/20 Lionel Santo MD [address] [place] [address] Referring Physician Geriatric Psychiatry 02/13/22 Jaime Sampson MD [address] [facility] [address] [place] [address] Referring Physician Transplant Hepatology 02/13/22 Miguel Fall MD [address] [facility] [address] [place] [address] Consulting Physician Physical Medicine and Rehabilitation 02/13/22 Benitez Solano, OT Occupational Therapist Occupational Therapy 08/20/24 Carlos Magana MD [address] [place] [address] Surgeon Orthopedic Surgery 08/22/24 documented as of this encounter
--- OUTSIDE RECORDS SUMMARY | 2024-10-11 20:49 | XMS_ITS | Encounter Summary ---
Author Organization [facility] Address [address] [place] [address] Phone Care Team Providers Care Manager Adult Name Role Phone Brandi Tillman MD Primary Care Provider Brandi Tillman MD Primary Care Provider Brandi Tillman MD Primary Care Provider Brandi Tillman MD Primary Care Provider Million, Rosa VAUGHN Primary Care Provider +[phone]- [phone] Brandi Tillman MD Primary Care Provider Million, Rosa VAUGHN Primary Care Provider +[phone]- [phone] Brandi Tillman MD Primary Care Provider Million, Rosa VAUGHN Primary Care Provider +[phone]- [phone] Brandi Tillman MD Primary Care Provider Million, Rosa VAUGHN Primary Care Provider [phone] Brandi Tillman MD Primary Care Provider Unknown, Notinfile Primary Care Provider Unavail able Brandi Tillman MD Unavailable +[phone] Romelia Martinez RN Unavailable Unavailab Agatha Carl RN Unavailable + [phone] Isaura Bowie RN Unavailable +[phone] Brandi Tillman MD Primary Care Provider Nina Marbella Cheung Unavailable +[phone] Agatha Smith MD Primary Care Provider Lionel Santo MD Unavailable Jaime Sampson MD Unavailable +[phone] Miguel Fall MD Unavailable [phone] No, Physician Primary Care Provider [phone] Ej Madden MD Primary Care Provi rama Benitez Solano OT Unavailable Unavailable Carlos Magana MD Unavailable [phone] Encounter Details Date Type Department Care Team (Latest Contact Info) Description 01/05/2010 Orders Only [facility] IM EML Scanning, Provider Social History Tobacco Use Types Packs/Day Years Used Date Smoking Tobacco: Never Assessed Comments Unknown Sex and Gender Information Value Date Recorded Sex Assigned at Not on file 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 Gender Identity Not on file Sexual Orientation Not on file documented as of this encounter Plan of Treatment Not on file documented as of this encounter Procedures Procedure Name Priority Date/Time Associated Diagnosis Comments SCAN - RADIOLOGY/IMAGING 01/05/2010 documented in this encounter Results * SCAN - RADIOLOGY/IMAGING (01/05/2010) Anatomical Region Laterality Modality Other us Provider Scanning Final Result documented in this encounter Visit Diagnoses Not on filedocumented in this encounter Care Teams Manager Adult Relationship Specialty Start Date End Date Brandi [...] Medicine 01/01/19 02/12/22 Agatha Smith MD [address] [facility] [address] [place], [place] [id number] PCP - General Family Practice 02/13/22 12/13/23 No, Physician PCP - General 12/14/23 01/27/24 Ej Madden MD [address] [address] PCP - General Family Practice 01/28/24 Brandi Tillman MD Internal Medicine 09/16/18 02/12/22 Romelia Martinez, SMITHA Registered Nurse Pain Management 05/22/17 Agatha Orozco, SMITHA [address] [place], [place] [id number] Spring Floor Service Worker 12/26/18 06/13/20 Isaura Bowie, RN [address] [place], [place] [id number] Secondary Liver Coordinator 12/26/18 06/13/20 Marbella Wood DO [address] [facility] [address] [place], [place] [id number] Consulting Physician Endocrinology Diabetes & Metabolism 06/07/20 Lionel Santo MD [address] [place] [address] Referring Physician Geriatric Psychiatry 02/13/22 Jaime Sampson MD [address] [facility] [address] [place] [address] Referring Physician Transplant Hepatology 02/13/22 Miguel Fall MD [address] [facility] [address] [place] [address] Consulting Physician Physical Medicine and Rehabilitation 02/13/22 Benitez Solano, OT Occupational Therapist Occupational Therapy 08/20/24 Carlos Magana MD [address] [place] [address] Surgeon Orthopedic Surgery 08/22/24 documented as of this encounter
--- OUTSIDE RECORDS SUMMARY | 2024-10-11 20:49 | XMS_ITS | Encounter Summary ---
Author Organization [facility] Healthcare Address [address] [place] [address] Care Team Providers Care Abe Teacher Name Role Phone Romelia Martinez RN Unavailable Unavailab Marbella Chen DO Unavailable [phone] Lionel Santo MD Unavailable Jaime Sampson MD Unavailable [phone] Miguel Fall MD Unavailable [phone] Ej Madden MD Primary Care Provi rama Benitez Solano OT Unavailable Unavailable Carlos Magana MD Unavailable [phone] Encounter Details Date Type Department Care Team (Late st Contact Info) Description 08/13/2024 Results Follow-Up [facility] [place] [address] [place] [address] Ej Madden MD [address] [place] [address] Diagnostic Mammogram Right W Sergio Social History Tobacco Use Types Packs/Day Years Used Date Smoking Tobacco: Former Cigarettes 1 40 0 02/26/1965 - 02/26/2005 Passive Smoke Exposure: Past Smokeless Tobacco: Never Comments:Not currently Alcohol Use Standard Drinks/Week Comments Not Currently 0 (1 standard drink = 0.6 oz pur e alcohol) AUDIT-C Answer Date Recorded Q1: How often do you have a drink containing alcohol? Never 08/14/2024 Q2: How many drinks containi ng alcohol do you have on a typical day when you are drinking? Patient does not drink Q3: How often do you have si x or more drinks on one occasion? Never 08/14/2024 PHQ-2 Answer Date Recorded PHQ-2 Total Score (If total score is 3 or more points, staff should administer the PHQ-9) 1 01/28/2024 Personal Safety Answer Date Recorded Have you ever been in or are you currently in a harmful physical or emotional relationship or is someone making you feel afraid or unsafe? Denies 07/12/2022 Comments No Sex and Gender Information Value Date Recorded Sex Assigned at Not on file Legal Sex Female 11:33 PM [employer] Gender Identity Not on file Sexual Orientation Not on file documented as of this encounter Functional Status * AUDIT-C Score Answer Date of Assessment Author 0 08/14/2024 3:05 PM SAEIDT Allyssa Diaz RN * Question Answer Date of Assessment Author Q1: How often do you have a drink containing alcohol? Never 08/14/2024 3:05 PM SAEIDT Allyssa Diaz RN Q2: How many drinks containing alcohol do you have on a typical day when you are drinking? Patient does not drink 08/14/2024 3:05 PM SAEIDT Allyssa Diaz RN Q3: How often do you have six or more drinks on one occasion? Never 08/14/2024 3:05 PM SAEIDT Allyssa Diaz RN documented as of this encounter Miscellaneous Notes * Result Encounter Note - Erin John MA - 08/13/2024 4:00 PM CDT Spoke with patient and she is aware of results documented in this encounter Plan of Treatment Not on file documented as of this encounter Goals Goal Patient Goal Type Associated Problems Recent Progress Patient-Stated? Author [facility] No Romelia Martinez, RN Note: For pain to be maintained at a tolerable level for I can be more active, Autogenerated Goal Care Plan Autogenerated Problem No Vernell Lund MA documented as of this encounter Visit Diagnoses Not on filedocumented in this encounter Additional Health Concerns Active Problems Noted Date Diagnosed Date Autogenerated Problem 08/23/2024 documented as of this encounter Care Teams Abe Teacher Relationship Specialty Start Date End Date Ej Madden MD [address] [facility] [address] [place] [address] PCP - General Family Practice 01/28/24 Romelia Martinez, RN Registered Nurse Pain Management 05/22/17 Marbella Wood DO [address] [facility] [address] [place] [address] Consulting Physician Endocrinology Diabetes & Metabolism 06/07/20 Lionel Santo MD [address] [place] [address] Referring Physician Geriatric Psychiatry 02/13/22 Jaime Sampson MD [address] [facility] [address] [place] [address] Referring Physician Transplant Hepatology 02/13/22 Miguel Fall MD [address] [facility] [address] [place] [address] Consulting Physician Physical Medicine and Rehabilitation 02/13/22 Benitez Solano, OT Occupational Therapist Occupational Therapy 08/20/24 Carlos Magana MD [address] [place] [address] [address] [place] [address] Surgeon Orthopedic Surgery 08/22/24 documented as of this encounter
--- OUTSIDE RECORDS SUMMARY | 2024-10-11 20:49 | XMS_ITS | Clinical Summary ---
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 Smokeless Tobacco: Never Tobacco Cessation:Counseling Given: Not Answered Comments:Not currently Alcohol Use Standard Drinks/Week Comments Not Currently 0 (1 standard drink = 0.6 oz pur e alcohol) AUDIT-C Answer Date Recorded Q1: How often do you have a drink containing alcohol? Never 08/22/2024 Q2: How many drinks containi ng alcohol do you have on a typical day when you are drinking? Patient does not drink Q3: How often do you have si x or more drinks on one occasion? Never 08/22/2024 PHQ-2 Answer Date Recorded PHQ-2 Total Score (If total score is 3 or more points, staff should administer the PHQ-9) 0 08/22/2024 Personal Safety Answer Date Recorded Have you ever been in or are you currently in a harmful physical or emotional relationship or is someone making you feel afraid or unsafe? Denies 08/22/2024 Comments No Sex and Gender Information Value Date Recorded Sex Assigned at Not on file Legal Sex Female 11:33 PM [employer] Gender Identity Not on file Sexual Orientation Not on file Obstetrics History Para Term AB IAB SAB Ectopic Multiple Livin g Live Births 3 3 3 Date Outcome GA Total Labor Labor/2nd/3rd Weight Sex Type Anes PTL Mila A1 A5 Name Clin Term Term Term Last Filed Vital Signs Vital Sign Reading Time Taken Comments Blood Pressure 156/80 09/15/2024 10:37 AM CDT Pulse 83 09/15/2024 10:37 AM CDT Temperature 36.6 C (97.9 F) 08/23/2024 7:23 AM CDT Respiratory Rate 16 08/23/2024 7:23 AM CDT Oxygen Saturation 95% 08/23/2024 7:23 AM CDT Inhaled Oxygen Concentration - - Weight 62.6 kg (138 lb) 09/15/2024 10:37 AM CDT Height 160 cm (5' 3) 09/15/2024 10:37 AM CDT Body Mass Index 24.45 09/15/2024 10:37 AM CDT Plan of Treatment Health Maintenance Due Date Last Done Comments Hepatitis B Screening 10/20/1965 Zoster Vaccine (2 of 3) 02/19/2012 12/25/2011 Covid-19 Vaccine (2023-03 5 season) 2023 11/23/2022, 06/09/2021, 01/19/2021, Additional history exists Well Visit 65+ 11/30/2023 11/29/2022, 11/27, 12/03/2019, Additional history exists Depression Screening 08/13/2025 08/13/2024, 01/28/2024, 11/29/2022, Additional history exists Fall Risk Assessment 08/23/2025 08/23/2024, 01/28/2024, 11/29/2022, Additional history exists Osteoporosis Screening-Bone Density Scan 12/10/2025 12/11/2023, 10/27/2022, 11/28/2021, Additional history exists DTaP/Tdap/Td Vaccine (4 - Td or Tdap) 04/02/2033 04/02/2023, 10/26/2016, 09/26/2006 Pneumococcal vaccine 65+ Discontinued 03/03/2015, 11/27 Hepatitis C Screening Completed 11/12/2018 Influenza Vaccine Discontinued 12/03/2019, , 12/11/2018, Additional history exists Colon Cancer Screening-CT Colonography Discontinued 07/12/2022, 06/07/2022, 01/26/2012, Additional history exists Colon Cancer Screening-Colonoscopy Discontinued 07/12/2022, 06/07/2022, 01/26/2012, Additional history exists Colon Cancer Screening-DNA Stool Discontinued 07/12/2022, 06/07/2022, 01/26/2012, Additional history exists Colon Cancer Screening-FIT Discontinued 07/12, 06/07/2022, 01/26/2012, Additional history exists Colon Cancer Screening-FOBT Discontinued 06/26, 06/07/2022, 01/26/2012, Additional history exists Colon Cancer Screening-Sigmoidoscopy Discontinued 07/12/2022, 06/07/2022, 01/26/2012, Additional history exists Colorectal Cancer Screening Discontinued Breast Cancer Screening-Mammogram Discontinued 12/14/2023, 04/01/2022, 08/13/2020, Additional history exists Goals Goal Patient Goal Type Associated Problems Recent Progress Patient-Stated? Author [facility] No Romelia Martinez RN Note: For pain to be maintained at a tolerable level for I can be more active, Autogenerated Goal Care Plan Autogenerated Problem No Vernell Lund MA Medical Devices Implanted Type Area Copyist Device Identifier Shelf Expiration Date Model / Serial / Lot Costal Cartilage Implanted:Qty: 1 on 07/18/2018 by Jaime Barnard MD at [facility] Bone Nose [employer] 04/25/2023 / [id number] / Rt Total Shoulder Arthroplasty Right: Shoulder [employer] [place] 52mm Sector Hip Shell Acetabular Gription Sterile Latex Free [id number] - [id number] Implanted:Qty: 1 on 08/22/2024 by Carlos Magana MD at [facility] Right: Hip [employer] [id number] 05/26/2034 [id number] / / [id number] [employer] [place] 52mm 36mm Hip Neutral Liner Acetabular Altrx Sterile Latex Free [id number] - [id number] Implanted:Qty: 1 on 08/22/2024 by Carlos Magana MD at [facility] Right: Hip [employer] [id number] 04/25/2029 [id number] / / [id number] [employer] [place] 6.5mm 35mm Acetabular Cancellous Screw Bone Sterile 1217-35-500 - [id number] Implanted:Qty: 1 on 08/22/2024 by Carlos Magana MD at [facility] Right: Hip [employer] [id number] 03/28/2034 1217-35-500 / / [id number] [employer] Actis Collar Hip 7 High Offset Stem Femoral [id number] - [id number] Implanted:Qty: 1 on 08/22/2024 by Carlos Magana MD at [facility] Right: Hip [employer] [id number] 05/26/2034 [id number] / / [id number] [employer] Articul/Aditya 36mm Cementless Hip +1.5mm 12/14 Taper Head Femoral Latex Free [id number] - [id number] Implanted:Qty: 1 on 08/22/2024 by Carlos Magana MD at [facility] Right: Hip [employer] [id number] 03/28/2029 [id number] / / [id number] Procedures Procedure Name Priority Date/Time Associated Diagnosis Comments XR HIP RIGHT 2 OR 3 VIEWS Schedule Routine, Read Routine (OP Routine) 09/15/2024 10:42 AM CDT Aftercare following right hip joint replacement surgery EGFR Routine 08/23/2024 8:07 AM CDT CBC WITHOUT DIFFERENTIAL Routine 08/23/2024 8:07 AM CDT BASIC METABOLIC PANEL Routine 08/23/2024 8:07 AM CDT SURGICAL PATHOLOGY Routine 08/22/2024 1: 25 PM CDT Primary osteoarthritis of right hip XR PELVIS ORTHO VIEW IP Routine 08/22/2024 11:07 AM CDT FL FLUOROSCOPY < 1 HOUR IP Routine 08/22/2024 10:32 AM CDT Primary osteoarthritis of right hip XR HIP RIGHT 1 VIEW IP Routine 08/22/2024 10:32 AM CDT Primary osteoarthritis of right hip OH AN ELECTIVE ENDOTRACHEAL AIRWAY Routine 08/22/2024 9:18 AM CDT ANESTHESIA SPINAL BLOCK Routine 08/22/2024 9:05 AM CDT ARTHROPLASTY TOTAL HIP - ANTERIOR APPROACH 08/22/2024 8:12 AM CDT Primary osteoarthritis of right hip Special Needs Anterior Approach, Depuy- Actis , Omnitrac, Aquamantys, 1 Liter Beta Rinse, Pt to Stay APTT STAT 08/22/2024 7:20 AM CDT PROTIME-INR STAT 08/22/2024 7:20 AM CDT US BREAST RIGHT LIMITED Schedule Routine, Read Routine (OP Routine) 08/12/2024 1:16 PM CDT Abnormal mammogram of right breast DIAGNOSTIC MAMMOGRAM RIGHT W SERGIO Schedule Routine, Read Routine (OP Routine) 08/12/2024 12:49 PM CDT Abnormal mammogram of right breast XR CHEST PA LATERAL 2 VIEWS Schedule Routine, Read Routine (OP Routine) 07/29/2024 12:48 PM CDT Pre-operative exam ECG 12-LEAD Routine 07/29/2024 12:37 PM CDT Pre-operative exam URINALYSIS, MICROSCOPIC ONLY Routine 07/29/2024 12:17 PM CDT Pre-operative exam EGFR Routine 07/29/2024 12:17 PM CDT Pre-operative exam DIFFERENTIAL AUTO Routine 07/29/2024 12:17 PM CDT Pre-operative exam CBC WITH AUTO DIFFERENTIAL Routine 07/29/2024 12:17 PM CDT Pre-operative exam COMPREHENSIVE METABOLIC PANEL Routine 07/29/2024 12:17 PM CDT Pre-operative exam HEMOGLOBIN A1C Routine 07/29/2024 12:17 PM CDT Pre-operative exam URINALYSIS AND REFLEX TO MICROSCOPIC AND CULTURE Routine 07/29/2024 12:17 PM CDT Pre-operative exam XR HIP RIGHT 2 OR 3 VIEWS Schedule Routine, Read Routine (OP Routine) 07/11/2024 3:05 PM CDT Primary osteoarthritis of right hip XR KNEE RIGHT 4 OR MORE VIEWS Schedule Routine, Read Routine (OP Routine) 07/11/2024 3:03 PM CDT Primary osteoarthritis of right hip SCREENING MAMMOGRAM BILATERAL W SERGIO Schedule Routine, Read Routine (OP Routine) 12/14/2023 11:19 AM CDT Screening mammogram, encounter for DEXA AXIAL SKELETON BONE DENSITY 1 OR MORE SITES Schedule Routine, Read Routine (OP Routine) 12/11/2023 1:09 PM CDT Osteoporosis without current pathological fracture, unspecified osteoporosis type COLONOSCOPY 07/12/2022 7:14 AM CDT HEPATITIS C ANTIBODY Routine 11/12/2018 12:08 PM CDT from Last 3 Months or Most Recently Relevant to Health Maintenance Results * XR Hip Right 2 or 3 Views (09/15/2024 10:42 AM CDT) Anatomical Region Laterality Modality Lower Extremities, Hip, Pelvis Right D igital Radiography Narrative 09/15/2024 10:50 AM CDT X-rays of the right are reviewed and interpreted and demonstrate no acute fractures subluxations or osseous changes. Status post JASIEL changes noted with implants in acceptable position. us Kwan Chavez CEMENT PATCHER IMG XR PROCEDURES Final Result * eGFR (08/23/2024 8:07 AM CDT) eGFR >90 >=60 mL/min/1. 73 m2 Comment: Interpretive Data Reference Interval Normal >/= 90 mL/min/1.73m2 Mildly decreased* 60 - 89 mL/min/1.73m2 Mildly to moderately decreased 45 - 59 mL/min/1.73m2 Moderately to severely decreased 30 - 44 mL/min/1.73m2 Severely decreased 15 - 29 mL/min/1.73m2 Kidney Failure < 15 mL/min/1.73m2 *Relative to young adult level Estimated glomerular filtration rate is determined by the 2020 CKD-EPI equation recommended by the National Kidney Foundation (A Unifying Approach to GFR Estimation: Recommendations of the NKF-ASK Task Force on Reassessing the Inclusion of Race in Diagnosing Kidney Disease, JASN 2020). The CKD-EPI equation should not be used for patients with unstable renal function and has not been validated in children and those over 70. Current interpretive data was last reviewed 2020. Blood 08/23/2024 8:07 AM CDT 08/23/2024 8:12 AM CDT Cee VAUGHN LAB BLOOD ORDERABLES Final Result [facility] 1 [facility] Department [place] [address] * (ABNORMAL) CBC without differential (08/23/2024 8:07 AM CDT) WBC 5.66 3.80 - 9.90 K/cumm Hgb 9.7(L) 11.9 - 15.5 g/dL [facility] Hct 29.5(L) 35.6 - 45.5 % [facility] Plt 194 150 - 400 K/cumm [facility] MPV 8.2(L) 9.1 - 12.3 fL [facility] RBC 2.95(L) 3.90 - 5.20 M/cumm [facility] MCV 100.0(H) 81.3 - 96.4 fL [facility] MCH 32.9 27.1 - 33.3 pg [facility] MCHC 32.9 32.3 - 35.7 g/dL [facility] RDW CV 13.2 11.1 - 14.9 % [facility] RDW SD 48.6(H) 35.7 - 48.1 fL [facility] NRBC abs 0.00 0.00 - 0.01 K/cumm [facility] Blood 08/23/2024 8:07 AM CDT 08/23/2024 8:12 AM CDT Cee VAUGHN LAB BLOOD ORDERABLES Final Result [facility] 1 [facility] Department [place] [address] * (ABNORMAL) Basic metabolic panel (08/23/2024 8:07 AM CDT) Sodium 137 135 - 145 mmol/L Potassium, pl 4.1 3.3 - 4.9 mmol/L [facility] Chloride 101 97 - 110 mmol/L [facility]) CO2 23 22 - 32 mmol/L [facility] Anion gap 13 2 - 15 mmol/L [facility] BUN 14 6 - 25 mg/dL [facility] Creatinine 0.65 0.60 - 1.10 mg/dL [facility] Glucose 117 70 - 199 mg/dL [facility] Comment: Interpretive Data Fasting glucose >/= 126 mg/dl is diagnostic for diabetes. Fasting is defined as no caloric intake for at least 8 hours. Fasting glucose between 100 mg/dl to 125 mg/dl is diagnostic of prediabetes. In a patient with classic symptoms of hyperglycemia or hyperglycemic crisis, a random glucose >/= 200 mg/dl is diagnostic for diabetes. In the absence of unequivocal hyperglycemia, results should be confirmed by repeat testing. The classification and Diagnosis of Diabetes Diabetes Care 202; 46: S19-S40. Current interpretive data was last revised 2022. Calcium 8.4(L) 8.5 - 10.3 mg/dL [facility] Blood 08/23/2024 8:07 AM CDT 08/23/2024 8:12 AM CDT us Cee VAUGHN LAB BLOOD ORDERABLES Final Result [facility] [address] [place] [address] Department [place] [address] * Surgical pathology (08/22/2024 1:25 PM CDT) Tissue (Bone Fragment(s),) 08/22/2024 9:47 AM CDT Narrative [facility] - 08/27/2024 1:08 PM CDT EPIC results best viewed via link to PDF [facility] Department of Pathology [address] [place] [id number] Note to Patients: This report may contain a detailed description of human tissue sent by a health care provider to the laboratory for pathologic evaluation. The content of this report is essential for diagnosis and may provide important critical findings. This information may be unfamiliar to patients to review without a medical professional present. It is advised that the patient review this report in the presence of a health care provider who can answer questions and explain the details. Final Report Patient Name: ABIMBOLA MARTINES Address: [address] [place] [address] Gender: F : 1945 (Age: 78) Service: Surgery Location: [facility] Hospital #: [id number] Patient Type: [facility] OP in bed Taken: 08/22/2024 Received: 08/22/2024 Accessioned: 08/22/2024 Reported: 08/27/2024 Physician(s):Dr. Carlos Magana M.D. Diagnosis: Bone, right total hip arthroplasty: - Histologic changes consistent with degenerative joint disease. Marcin Shirley MD Report Electronically Reviewed and Signed Out By Marcin Shirley MD 08/27/2024 13:08:12 Specimen(s) Received: A: Right hip bone and tissue fragments Microscopic Description: A decalcified section shows erosion and destruction of the articular cartilage. The marrow space appears fatty with focal hematopoietic marrow elements. There is no evidence of malignancy. The histologic changes are consistent with the clinical impression of degenerative joint disease. Clinical History: Osteoarthritis of right hip. Right total hip arthroplasty. Gross Description: The specimen is received in a single container labeled ABIMBOLA MARTINES and right hip. It is a 5 cm in diameter femoral head and separate 10 cc aggregate of hernandez gritty hemorrhagic cortical and cancellous bone. The articular surface of the femoral head shows degenerative changes of the cartilage with erosion and eburnation. The femoral neck margin is smooth. The specimen is bisected revealing no subchondral gross lesions. [employer] sections are submitted in one cassette after decalcification. Messi Wylie R.N., P.A./Jeremy Patel M.D. REPORT IMAGES AND SCANNED DOCUMENTS, IF INCLUDED, ONLY VIEWABLE IN PDF VERSION OF REPORT The performance characteristics of some immunohistochemical stains, fluorescence in-situ hybridization tests and immunophenotyping by flow cytometry cited in this report (if any) were determined by the Surgical Pathology Department at [facility] as part of an ongoing quality control associate program and in compliance with federally mandated regulations drawn from the Clinical Laboratory Improvement Act of 1988 (CLIA '88). Some of these tests rely on the use of analyte specific reagents and are subject to specific labeling requirements by the US Food and Drug Administration. Such diagnostic tests may only be performed in a facility that is certified by the Department of Health and Human Services as a high complexity laboratory under CLIA '88. The FDA has determined that such clearance or approval is not necessary. This test is used for clinical purposes. It should not be regarded as investigational or for research. Nevertheless, federal rules concerning the medical use of analyte specific reagents require that the following disclaimer be attached to the report: This test was developed and its performance characteristics determined by the Surgical Pathology Department [facility]. It has not been cleared or approved by the U. S. Food and Drug Administration. Note for decalcified specimens: This assay has not been validated on decalcified tissues. Results should be interpreted with caution given the possibility of false negativity on decalcified specimens Carlos Magana MD LAB PATHOLOGY ORDERABLES Final Result [facility] [address] [place] [address] * XR Pelvis Ortho View (08/22/2024 11:07 AM CDT) Anatomical Region Laterality Modality Body, Pelvis N/A Computed Radiogr aphy 08/22/2024 1:29 PM CDT Narrative 08/22/2024 1:31 PM CDT EXAM DESCRIPTION: XR PELVIS ORTHO VIEW REASON FOR STUDY: in pacu s/p jasiel Post op TECHNIQUE: Single frontal radiographic view(s) of the pelvis . COMPARISON: Pelvis and right hip radiographs dated 07/11/2014. FINDINGS: Please note the mid to upper margin of the pelvis is not imaged on this study. Right total hip arthroplasty instrumentation is new when compared to the previous radiographs dated 07/11/2024. Adjacent soft tissue swelling and air is likely postoperative in nature. There are pelvic phleboliths. IMPRESSION: Right total hip arthroplasty related changes are new when compared to the previous right hip radiographs dated 07/11/2024. THIS IS AN ELECTRONICALLY VERIFIED FINAL REPORT 08/22/2024 1:31 PM - Electronically signed by Ze Martino D.O. AP: AP Report ID: [id number] [place] Location: [id number] Procedure Note Ze Martino, DO - 08/22/2024 EXAM DESCRIPTION: XR PELVIS ORTHO VIEW REASON FOR STUDY: in pacu s/p jasiel Post op TECHNIQUE: Single frontal radiographic view(s) of the pelvis . COMPARISON: Pelvis and right hip radiographs dated 07/11/2014. FINDINGS: Please note the mid to upper margin of the pelvis is not imaged on thisstudy. Right total hip arthroplasty instrumentation is new when compared to the previous radiographs dated 07/11/2024. Adjacent soft tissue swelling andair is likely postoperative in nature. There are pelvic phleboliths. IMPRESSION: Right total hip arthroplasty related changes are new when compared to the previous right hip radiographs dated 07/11/2024. THIS IS AN ELECTRONICALLY VERIFIED FINAL REPORT 08/22/2024 1:31 PM - Electronically signed by Ze Martino D.O. AP: AP Report ID: [id number] [place] Location: [place] [address] Cee VAUGHN IMG XR PROCEDURES Fin al Result * FL Fluoroscopy < 1 Hour (08/22/2024 10:32 AM CDT) Narrative [facility] - 08/22/2024 10:33 AM CDT The images from this study are not interpreted by Radiology. Please refer to the physician's procedure / OR operative note. Carlos Magana MD IMG FLUOROSCOPY PROCEDUR ES Final Result [facility] * XR Hip Right 1 View (08/22/2024 10:32 AM CDT) Anatomical Region Laterality Modality Lower Extremities, Hip, Pelvis Right R adio Fluoroscopy 08/22/2024 12:5 7 PM CDT Narrative 08/22/2024 12:58 PM CDT EXAM DESCRIPTION: XR HIP RIGHT 1 VIEW REASON FOR STUDY: osteoarthritis COMPARISON: 07/11/2024 RADIATION DOSE: Dose: 0.44 mGy Reference Air Kerma (Ka,r) Views: 1 TECHNIQUE: Intraoperative fluoroscopy was provided for procedure performed by Dr. Magana. FINDINGS: Intraoperative fluoroscopy was provided for procedure performed by Dr. Magana. 10 intraoperative fluoroscopic images were obtained of the pelvis and right hip in the frontal projection for right hip arthroplasty. There are surgical changes of right hip arthroplasty noted. IMPRESSION: 1. Intraoperative fluoroscopy provided for procedure performed by Dr Magana. Please see procedure note. THIS IS AN ELECTRONICALLY VERIFIED FINAL REPORT 08/22/2024 12:58 PM - Electronically signed by Shaila Schaffer D.O. PS: PS Report ID: [id number] [place] Location: [id number] Procedure Note Shaila Schaffer, - 08/22/2024 EXAM DESCRIPTION: XR HIP RIGHT 1 VIEW REASON FOR STUDY: osteoarthritis COMPARISON: 07/11/2024 RADIATION DOSE: Dose: 0.44 mGy Reference Air Kerma (Ka,r) Views: 1 TECHNIQUE: Intraoperative fluoroscopy was provided for procedureperformed by Dr. Magana. FINDINGS: Intraoperative fluoroscopy was provided for procedure performed by Dr. Magana. 10 intraoperative fluoroscopic images were obtained of thepelvis and right hip in the frontal projection for right hip arthroplasty. Thereare surgical changes of right hip arthroplasty noted. IMPRESSION: 1. Intraoperative fluoroscopy provided for procedure performed by Dr Magana. Please see procedure note. THIS IS AN ELECTRONICALLY VERIFIED FINAL REPORT 08/22/2024 12:58 PM - Electronically signed by Shaila Schaffer D.O. PS: PS Report ID: [id number] [place] Location: [id number] Carlos Magana MD IMG XR PROCEDURES Final Result * OH AN ELECTIVE ENDOTRACHEAL AIRWAY (08/22/2024 9:18 AM CDT) Narrative Jaime Menard, DO - 08/22/2024 9:18 AM CDT Jaime Menard, 08/22/2024 9:19 AM Airway Patient location: OR Urgency: elective Indications for airway management: anesthesia and airway protection Difficult airway: no Emergent airway documentation: Risks and benefits discussed: yes Consent obtained: yes Consent given by: patient Airway prep: Preoxygenated: yes Patient position: sniffing Mask difficulty assessment: 1 - vent by mask Sedation level during airway: GA Final airway details: Final airway type: endotracheal airway Tube type: ETT ETT size: 7.5 mm Cuffed: yes Technique used for successful ETT placement: video laryngoscopy Devices/Methods used in placement: intubating stylet Insertion site: oral Blade type: Presley Video blade type: CMAC Blade size: 3 Cormack-Lehane (direct): grade I - full view of glottis Cuff inflated with: air Placement verified by: auscultation Airway secured with: silk tape Number of attempts: 1 Jaime Menard DO ANESTHESIA ORDERABL ES Final Result * Spinal Block (08/22/2024 9:05 AM CDT) Narrative Jaime Menard DO - 08/22/2024 9:05 AM CDT Jaime Menard DO 08/22/2024 9:08 AM Spinal Block Patient location: OR End time: 08/22/2024 8:43 AM Reason for block: primary anesthetic Staff: Placed by: Anesthesiologist: Jaime Menard DO Procedure prep: Preprocedure checklist: patient identified, procedure contraindications assessed, site marked, procedure consent, surgical consent, IV checked, risks, benefits and alternatives discussed, monitors and equipment checked and timeout performed Patient position: sitting Procedure performed while patient: sedate with meaningful contact Monitoring: ECG and oximetry Prep solution: chlorhexadine/alcohol PPE: provider hat/mask, sterile gloves and sterile drape Skin infiltrated with lidocaine 1%: yes Spinal: Approach: left paramedian Introducer used: no Location: L3-4 Number of attempts: 2 Spinal Needle: Needle type: pencil-tip Needle gauge: 22 G Needle length: 9 cm Assessment: Other events: unable to obtain CSF aborted after 2 attempts significant scoliosis Jaime Menard DO ANESTHESIA ORDERABL ES Final Result * aPTT (08/22/2024 7:20 AM CDT) aPTT 33 28 - 38 sec [facility] ([place]) Comment: Interpretive Data Heparin therapeutic range: 66.0 - 100.0 seconds. Range based on correlation with therapeutic heparin activity range of 0.3 - 0.7 Units/mL. Current interpretive data was last revised on 2022. Blood 08/22/2024 7:20 AM CDT 08/22/2024 7:23 AM CDT Carlos Magana MD LAB BLOOD ORDERABLES Fin al Result [facility] [place]) 1 [facility] [place] [address] * Protime-INR (08/22/2024 7:20 AM CDT) PT 10.4 9.7 - 13.0 sec [facility] ([place]) INR 0.96 0.90 - 1.20 [facility] ([place]) Comment: Interpretive data Oral anticoagulant therapeutic ranges: Venous thromboembolism prophylaxis or treatment: 2.0-3.0 CARDIOLOGY Standard range: 2.0-3.0 High-intensity range: 2.5-3.5 Refer to indication-specific guidelines for appropriate target ranges for prosthetic heart valve replacement. Current interpretive data was last revised on 2019. Blood 08/22/2024 7:20 AM CDT 08/22/2024 7:23 AM CDT Carlos Magana MD LAB BLOOD ORDERABLES Fin al Result [facility] ([place]) 1 [facility] [place] [address] * US Breast Right Limited (08/12/2024 1:16 PM CDT) Anatomical Region Laterality Modality Breast Right Ultrasound 08/13/2024 3:30 PM CDT Impressions 08/13/2024 3:30 PM CDT The findings are consistent with resolution of a hematoma. No imaging findings to suggest malignancy are seen. The patient may return to screening mammography as per ACR guidelines. OVERALL FINAL ASSESSMENT: [id number] Electronically signed by: Julissa Brenner M.D. Narrative 08/13/2024 3:30 PM CDT EXAMINATION: RIGHT DIGITAL DIAGNOSTIC MAMMOGRAM AND DIGITAL BREAST TOMOSYNTHESIS; RIGHT BREAST SONOGRAM HISTORY: Follow-up probable hematoma COMPARISON: May 09 TECHNIQUE: Full field digital mammographic views of the right breast(s) were performed, including computer aided detection (CAD) and digital breast tomosynthesis (DBT). Directed ultrasound evaluation of the right breast(s) was performed. BREAST PARENCHYMAL COMPOSITION: There are scattered areas of fibroglandular density. MAMMOGRAM FINDINGS: The previously seen heterogeneous mass in the palpable area is no longer present. There are no suspicious masses. No suspicious calcifications are seen. There is no unexplained architectural distortion. There is no skin thickening seen. There are no mammographically abnormal lymph nodes seen in the axillae or elsewhere. ULTRASOUND FINDINGS: Scanning through the 10 o'clock position demonstrates that the previously seen superficial, heterogeneous mass is no longer present. us Ej Madden MD IMG MAMMO PROCEDURE S Final Result * Diagnostic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 Date Activated Date Inactivated Comments 08/22/2024 12:19 PM 08/23/2024 3:04 PM * Full Code Date Activated Date Inactivated Comments 07/12/2022 7:18 AM 07/12/2022 1:24 PM * Full Code Date Activated Date Inactivated Comments 07/12/2022 7:18 AM 07/12/2022 7:18 AM * Full Code Date Activated Date Inactivated Comments 06/07/2022 9:01 AM 06/07/2022 4:08 PM * Full Code Date Activated Date Inactivated Comments 06/07/2022 9:01 AM 06/07/2022 9:01 AM Care Teams Rivet Tester Relationship Specialty Start Date End Date Ej Madden MD [address] [facility] [address] [place] [address] PCP - General Family Practice 01/28/24 Romelia Martinez, SMITHA Registered Nurse Pain Management 05/22/17 Marbella Wood DO [address] [place] [address] Consulting Physician Endocrinology Diabetes & Metabolism 06/07/20 Lionel Santo MD [address] [place] [address] Referring Physician Geriatric Psychiatry 02/13/22 Jaime Sampson MD [address] [facility] [address] [place] [address] Referring Physician Transplant Hepatology 02/13/22 Miguel Fall MD [address] [facility] [address] [place] [address] Consulting Physician Physical Medicine and Rehabilitation 02/13/22 Benitez Solano, OT Occupational Therapist Occupational Therapy 08/20/24 Carlos Magana MD [address] [place] [address] [address] Surgeon Orthopedic Surgery 08/22/24
--- OUTSIDE RECORDS SUMMARY | 2024-10-11 20:49 | XMS_ITS | Clinical Summary ---
Author Organization [facility] Address [address] [facility] [place] [address] Care Team Providers Care Air Intercept Controller Supervisor Name Role Phone Ej Fitzgerald DO Primary Care Provider + Source Comments [facility],non-owned Affiliates and Associated Physician Practices is amultiple site organization consisting of ambulatory clinics and hospital sitesin [place], [place], [place] and [place]. This disclosure is being madepursuant to the Care Everywhere program and may not contain all information available regarding this patient. Last updated 17.[facility] Allergies Active Allergy Reactions Criticality Noted Date Comments Celecoxib Rash Medium 08/14/2018 Pneumococcal Polysaccharides Conjugated Vaccine Other Medium 08/14/2018 other Sulfa Drugs Rash Medium 08/14/2018 Medications * This document contains information received from the source organization and may not represent a complete record from that organization. * Be aware that medications may not be up to date on this document. Alwaysverify current medications with the patient. levothyroxine (SYNTHROID) 100 MCG tablet Take 1 (one) tablet by mouth once daily Active Turmeric 500 MG Take 500 mg by mouth once daily Active liothyronine (CYTOMEL) 5 MCG tablet Take 2 (two) tablets by mouth once daily 1 Active aspirin EC (ECOTRIN) 81 MG tablet Take 1 (one) tablet by mouth once daily Active multivitamin daily tablet Take 1 (one) tablet by mouth daily with food Active Ergocalciferol (VITAMIN D2) 50 MCG (2000 UT) Take 50,000 Units by mouth every 30 days 2 Active QUEtiapine (SEROquel) 50 MG tablet Take 2.5 (two and one-half) tablets by mouth at bedtime TAKE 2 TABLETS AT BEDTIME 270 tablet 3 4 Active glucosamine (Glucosamine) 500 MG capsule Take 1 (one) capsule by mouth 2 times daily Active magnesium 30 MG tablet Take 1 (one) tablet by mouth once daily Active buPROPion XL 24hr (Wellbutrin-XL) 150 MG tablet TAKE 3 TABLETS EVERY MORNING 270 tablet 3 5 Active lamoTRIgine XR 24hr (LaMICtal XR) 100 MG tabletIndications :Bipolar 1 disorder (HCC) Take 1 (one) tablet by mouth once daily 90 tablet 3 5 Active lamoTRIgine XR 24hr (LaMICtal XR) 50 MG tabletIndications :Bipolar 1 disorder (HCC) Take 1 (one) tablet by mouth once daily 90 tablet 4 5 Active ketorolac (Toradol) 10 MG tabletIndications :Chronic low back pain, unspecified back pain laterality, unspecified whether sciatica present Take 1 (one) tablet by mouth every 6 hours as needed for Pain 30 tablet 5 Active Viibryd 40 MG tablet Take 1 (one) tablet by mouth daily with breakfast 90 tablet 5 Active LORazepam (Ativan) 1 MG tablet TAKE 1 TABLET EVERY 6 HOURSAS NEEDED 360 tablet 1 5 Active Viibryd 20 MG tablet Take 1 (one) tablet by mouth daily with breakfast 90 tablet 5 Active amphetamine-dextr oamphetamine XR 24hr (Adderall XR) 30 MG capsuleIndication s:Attention deficit disorder (ADD) without hyperactivity Take 1 (one) capsule by mouth every morning 30 capsule 5 Active Viibryd 20 MG tablet Take 1 (one) tablet by mouth daily with breakfast 90 tablet 2 5 025 Discontin ued(Reord er) amphetamine-dextr oamphetamine XR 24hr (Adderall XR) 30 MG capsuleIndication s:Attention deficit disorder (ADD) without hyperactivity TAKE 1 (ONE) CAPSULE BY MOUTH EVERY MORNING 30 capsule 5 025 Discontin ued(Reord er) Active Problems Problem Noted Date Diagnosed Date Degenerative scoliosis in adult patient 12/25/19 24 Generalized anxiety disorder 07/07/2021 Major depressive disorder, recurrent episode, mo derate 01/13/2021 Severe episode of recurrent major depressive disorder, without psychotic features 12/03/2019 Statin declined 12/03/2019 Cystic disease of liver 01/01/2019 Overview (02/17/2020): Last Assessment & Plan: The change in appearance of the cyst [...] not convinced this is related to malignancy. Renal mass 09/16/2018 Overview (02/17/2020): Added automatically from request for surgery [id number] Chronic bilateral low back pain without sciatica 06/17/2018 Carotid artery disease 05/17/2018 Other idiopathic scoliosis, thoracolumbar region 12/10/2017 Age-related osteoporosis wit hout current pathological fracture 09/04/2017 Overview (02/17/2020): Overview: Study was performed September 04, 2017 Bone [...] bone markers at that time were elevated. Last Assessment & Plan: Stay on bisphosphonates, calcium and vitamin-D Follow-up bone density August 2018 History of tobacco use 02/07/2017 Pain of foot 05/03/2016 Persistent cough 02/14/2016 Pain in shoulder 11/24/2015 Prolapse of female pelvic organs 08/13/2015 Keratosis, senilis 05/03/2015 Milial cyst 05/03/2015 Rosacea 05/03/2015 Major depressive disorder, single episode, moder ate 10/24/2012 Overview (02/17/2020): Overview: Major depression Attention deficit disorder 10/24/2012 Overview (02/17/2020): Overview: ADHD (attention deficit hyperactivity disorder) Hypertension 10/24/2012 Overview (02/17/2020): Overview: Hypertension Fibromyalgia 09/28/2008 Overview (02/17/2020): Overview: Chronic pain Hypothyroidism 09/28/2008 Overview (02/17/2020): Overview: Hypothyroid- Last Assessment & Plan: She will be continued on the combination of T4 and T3 and labs will be followed. Sprain of rotator cuff capsule 08/17/2008 Immunizations Immunization Administration Dates Next Due INFLUENZA VACCINE, TRIV. (AF LURIA, FLUZONE TRIVALENT; 6MO+) (IIV3) 01/11/2012,12/25/2011 Covid Moderna primary monova lent 12+ yr 0.5mL 06/04/2020,05/07/2020 INFLUENZA VACCINE 12/03/2019 INFLUENZA VACCINE, ADJUVANTE D, TRIV. (FLUAD TRIVALENT; 65Y+) (AIIV3) 12/11/2018 PNEUMOCOCCAL PPSV23 12/25/2011 Pneumococcal Pcv13 Conj 03/03/2015 TDAP (7yrs+) 04/02/2023,10/26/2016,09/26/2006 ZOSTER VACCINE, LIVE 12/25/2011 Family History Medical History Relation Name Comments Depression Father CAD (Coronary Artery Disease) Mother Depression Mother Relation Name Status Comments Father Mother Social History Tobacco Use Types Packs/Day Years Used Date Smoking Tobacco: Never Smokeless Tobacco: Never Tobacco Cessation:Counseling Given: Not Answered Alcohol Use Standard Drinks/Week Comments Not Currently 0 (1 standard drink = 0.6 oz pur e alcohol) rarely AUDIT-C Answer Date Recorded Q1: How often do you have a drink containing alc ohol? Monthly or less 11/04/2021 Q2: How many drinks containi ng alcohol do you have on a typical day when you are drinking? 1 or 2 11/04/2021 Q3: How often do you have si x or more drinks on one occasion? 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 Gender Identity Not on file Sexual Orientation Not on file Last Filed Vital Signs Vital Sign Reading Time Taken Comments Blood Pressure 121/85 05/15/2024 10:59 AM CDT Pulse 85 05/15/2024 10:59 AM CDT Temperature 36.7 C (98 F) 07/24/2023 9:19 AM CDT Respiratory Rate 20 02/21/2022 9:24 AM JEWELRY DRILLING MACHINE OPERATOR Oxygen Saturation 96% 09/20/2023 9:28 AM CDT Inhaled Oxygen Concentration 21% 11/04/2021 9 :00 AM CDT Weight 65.4 kg (144 lb 4 oz) 05/15/2024 10:59 AM CDT Height 160 cm (5' 3) 05/15/2024 10:59 AM CDT Body Mass Index 25.55 05/15/2024 10:59 AM CDT Plan of Treatment Upcoming Encounters Date Type Department Care Team (Late st Contact Info) Description 12/23/2024 10:30 AM CDT Office Visit [facility] - Orthopedics [address] [facility], [facility] [place] [id number] Aj Israel MD [address] [place] [address] Health Maintenance Due Date Last Done Comments MEDICARE AWV 12 MONTHS 1945 HEPATITIS C SCREENING 10/16/1965 ZOSTER VACCINE (2 of 3) 02/19/2012 12/25/2011 Respiratory Syncytial Virus (RSV) Vaccine Pt: or over 60 yrs (1 - 1-dose 75+ series) 10/20/2022 COVID-19 VACCINE (3 - 2024-25 season) 2023 06/04/2020, 05/07/2020 INFLUENZA VACCINE (#1) 2024 , 12/11/2018, 01/11/2012, Additional history exists DTAP/TDAP/TD VACCINES (4 - Td or Tdap) 04/02/2033 04/02/2023, 10/26/2016, 09/26/2006 BONE DENSITY TESTING Completed 12/11/2023, 10/27/2022, 11/28/2021, Additional history exists DEPRESSION SCREENING Completed 05/15/2024, 05/01/2023, 11/07/2022, Additional history exists HEPATITIS B VACCINE Aged Out No longe r eligible based on patient's age to complete this topic HIB VACCINE Aged Out No longer eligi ble based on patient's age to complete this topic HPV VACCINE Aged Out No longer eligi ble based on patient's age to complete this topic MENINGOCOCCAL (Group B) VACCINE SHARED DECISION-MAKING Aged Out No longer eligible based on patient's age to complete this topic MENINGOCOCCAL GROUPS A/C/Y/W VACCINE Aged Out No longer eligible based on patient's age to complete this topic Insurance MEDICARE [facility] MEDICARE [facility] MEDICARE ANTHEM Advance Directives * Full Code (Latest Code Status on File) Date Activated Date Inactivated Comments 01/14/2021 12:40 AM 01/15/2021 12:59 PM Care Teams Air Intercept Controller Supervisor Relationship Specialty Start Date End Date Ej Fitzgerald DO [address] [place] [address] PCP - General Internal Medicine 04/30/24
--- OUTSIDE RECORDS SUMMARY | 2024-10-11 20:49 | XMS_ITS | Encounter Summary ---
Author Organization [facility] Address [address] [place] [address] Phone Care Team Providers Care Railroad Worker Name Role Phone Brandi Tillman MD Primary Care Provider Brandi Tillman MD Primary Care Provider Brandi Tillamn MD Primary Care Provider Brandi Tlilman MD Primary Care Provider Million, Rosa VAUGHN Primary Care Provider [phone] Brandi Tillman MD Primary Care Provider Million, Rosa VAUGHN Primary Care Provider [phone] Brandi Tillman MD Primary Care Provider Million, Rosa VAUGHN Primary Care Provider [phone] Brandi Tillman MD Primary Care Provider Million, Rosa VAUGHN Primary Care Provider [phone] Brandi Tillman MD Primary Care Provider Unknown, Notinfile Primary Care Provider Unavail able Brandi Tillman MD Unavailable [phone] Romelia Martinez RN Unavailable Unavailab Agatha Carl RN Unavailable + [phone] Isaura Bowie RN Unavailable [phone] Brandi Tillman MD Primary Care Provider NinaMarbella veloz Unavailable [phone] Agatha Smith MD Primary Care Provider Lionel Santo MD Unavailable Jaime Sampson MD Unavailable [phone] Miguel Fall MD Unavailable [phone] No, Physician Primary Care Provider Ej Madden MD Primary Care Provi rama Benitez Solano OT Unavailable Unavailable Carlos Magana MD Unavailable [phone] Encounter Details Date Type Department Care Team (Latest Contact Info) Description 12/19/2007 Orders Only [facility] Scanning, Provider Social History Tobacco Use Types Packs/Day Years Used Date Smoking Tobacco: Never Assessed Comments Unknown Sex and Gender Information Value Date Recorded Sex Assigned at Not on file Legal 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 Female 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 Gender Identity Not on file Sexual Orientation Not on file documented as of this encounter Plan of Treatment Not on file documented as of this encounter Procedures Procedure Name Priority Date/Time Associated Diagnosis Comments SCAN - RADIOLOGY/IMAGING 12/19/2007 documented in this encounter Results * SCAN - RADIOLOGY/IMAGING (12/19/2007) Anatomical Region Laterality Modality Other us Provider Scanning Final Result documented in this encounter Visit Diagnoses Not on filedocumented in this encounter Care Teams Railroad Worker Relationship Specialty Start Date End Date Brandi [...] Agatha Smith MD [address] [facility] [address] [place], [place] [id number] PCP - General Family Practice 02/13/22 12/13/23 No, Physician PCP - General 12/14/23 01/27/24 Ej Madden MD [address] [address] PCP - General Family Practice 01/28/24 Brandi Tillman MD Internal Medicine 09/16/18 02/12/22 Romelia Martinez, SMITHA Registered Nurse Pain Management 05/22/17 Agatha Orozco, SMITHA [address] [place], [place] [id number] Bookie 12/26/18 06/13/20 Isaura Bowie, RN [address] [place], [place] [id number] Secondary Liver Coordinator 12/26/18 06/13/20 Marbella Wood DO [address] [facility] [address] [place], [place] [id number] Consulting Physician Endocrinology Diabetes & Metabolism 06/07/20 Lionel Santo MD [address] [place] [address] Referring Physician Geriatric Psychiatry 02/13/22 Jaime Sampson MD [address] [facility] [address] [place] [address] Referring Physician Transplant Hepatology 02/13/22 Miguel Fall MD [address] [facility] [address] [place] [address] Consulting Physician Physical Medicine and Rehabilitation 02/13/22 Benitez Solano, OT Occupational Therapist Occupational Therapy 08/20/24 Carlos Magana MD [address] [place] [address] Surgeon Orthopedic Surgery 08/22/24 documented as of this encounter
--- OUTSIDE RECORDS SUMMARY | 2024-10-11 20:49 | XMS_ITS | Encounter Summary ---
Author Organization [facility] Address [address] [place] [address] Care Team Providers Care Gear Cutting Machine Set Up Operator Name Role Phone Romelia Martinez RN Unavailable Unavailab Marbella Chen DO Unavailable Lionel Santo MD Unavailable [phone] Jaime Sampson MD Unavailable [phone] Miguel Fall MD Unavailable Ej Madden MD Primary Care Provi rama Benitez Solano OT Unavailable Unavailable Carlos Magana MD Unavailable [phone] Encounter Details Date Type Department Care Team (Late st Contact Info) Description 08/13/2024 Results Follow-Up [facility] Primary [facility] at [place] [address] [facility] [address] [place] [address] Ej Madden MD [address] [place] [address] US Breast Right Limited Social History Tobacco Use Types Packs/Day Years [...] on file 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 Never 08/14/2024 3:05 PM SAEIDT Allyssa Diaz RN documented as of this encounter Miscellaneous Notes * Result Encounter Note - Erin John MA - 08/13/2024 4:01 PM CDT Spoke with patient and she is aware of results documented in this encounter Plan of Treatment Not on file documented as of this encounter Goals Goal Patient Goal Type Associated Problems Recent Progress Patient-Stated? Author [facility] No Romelia Martinez, RN Note: [...] documented as of this encounter Care Teams Gear Cutting Machine Set Up Operator Relationship Specialty Start Date End Date Ej Madden MD [address] [facility] [address] [place] [address] PCP - General Family Practice 01/28/24 Romelia Martinez, RN Registered Nurse Pain Management 05/22/17 Marbella Wood DO [address] [facility] [address] [place] [address] Consulting Physician Endocrinology Diabetes & Metabolism 06/07/20 Lionel Santo MD [address] [place] [address] Referring Physician Geriatric Psychiatry 02/13/22 Jaime Sampson MD [address] [facility] [address] [place] [address] Referring Physician Transplant Hepatology 02/13/22 Miguel Fall MD [address] [facility] [address] [place] [address] Consulting Physician Physical Medicine and Rehabilitation 02/13/22 Benitez Solano, OT Occupational Therapist Occupational Therapy 08/20/24 Carlos Magana MD [address] [place] [address] [address] [place] [address] Surgeon Orthopedic Surgery 08/22/24 documented as of this encounter
--- OUTSIDE RECORDS SUMMARY | 2024-10-11 20:49 | XMS_ITS | Encounter Summary ---
Author Organization [facility] Address [address] [place] [address] Phone Care Team Providers Care Rotary Driller Name Role Phone Brandi Tillman MD Primary Care Provider Brandi Tillman MD Primary Care Provider Brandi Tillman MD Primary Care Provider Brandi Tillman MD Primary Care Provider Million, Rosa VAUGHN Primary Care Provider [phone] Brandi Tillman MD Primary Care Provider Million, Rosa VAUGHN Primary Care Provider [phone] Brandi Tillman MD Primary Care Provider Million, Rosa VAUGHN Primary Care Provider [phone] Brandi Tillman MD Primary Care Provider Million, Rosa VAUGHN Primary Care Provider [phone] Brandi Tillman MD Primary Care Provider Unknown, Notinfile Primary Care Provider Unavail able Brandi Tillman MD Unavailable [phone] Romelia Martinez RN Unavailable Unavailab Agatha Carl RN Unavailable + [phone] Isaura Bowie RN Unavailable [phone] Brandi Tillman MD Primary Care Provider NinaMarbella veloz Unavailable +[phone] Agatha Smith MD Primary Care Provider Lionel Santo MD Unavailable Jaime Sampson MD Unavailable [phone] Miguel Fall MD Unavailable [phone] No, Physician Primary Care Provider Ej Madden MD Primary Care Provi rama Benitez Solano OT Unavailable Unavailable Carlos Magana MD Unavailable [phone] Encounter Details Date Type Department Care Team (Latest Contact Info) Description 06/27/2002 Orders Only [facility] EML Scanning, Provider Social History Tobacco Use Types Packs/Day Years Used Date Smoking Tobacco: Never Assessed Comments Unknown Sex and Gender Information Value Date Recorded Sex Assigned at Not on file 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 Gender Identity Not on file Sexual Orientation Not on file documented as of this encounter Plan of Treatment Not on file documented as of this encounter Procedures Procedure Name Priority Date/Time Associated Diagnosis Comments SCAN - RADIOLOGY/IMAGING 06/27/2002 documented in this encounter Results * SCAN - RADIOLOGY/IMAGING (06/27/2002) Anatomical Region Laterality Modality Other us Provider Scanning Final Result documented in this encounter Visit Diagnoses Not on filedocumented in this encounter Care Teams Rotary Driller Relationship Specialty Start Date End Date Brandi [...] Medicine 01/01/19 02/12/22 Agatha Smith MD [address] [facility] [address] [place], [place] [id number] PCP - General Family Practice 02/13/22 12/13/23 No, Physician PCP - General 12/14/23 01/27/24 Ej Madden MD [address] [address] PCP - General Family Practice 01/28/24 Brandi Tillman MD Internal Medicine 09/16/18 02/12/22 Romelia Martinez, SMITHA Registered Nurse Pain Management 05/22/17 Agatha Orozco, SMITHA [address] [place], [place] [id number] Principal Cloud Architect 12/26/18 06/13/20 Isaura Bowie, RN [address] [place], [place] [id number] Secondary Liver Coordinator 12/26/18 06/13/20 Marbella Wood DO [address] [facility] [address] [place], [place] [id number] Consulting Physician Endocrinology Diabetes & Metabolism 06/07/20 Lionel Santo MD [address] [place] [address] Referring Physician Geriatric Psychiatry 02/13/22 Jaime Sampson MD [address] [facility] [address] [place] [address] Referring Physician Transplant Hepatology 02/13/22 Miguel Fall MD [address] [facility] [address] [place] [address] Consulting Physician Physical Medicine and Rehabilitation 02/13/22 Benitez Solano, OT Occupational Therapist Occupational Therapy 08/20/24 Carlos Magana MD [address] [place] [address] Surgeon Orthopedic Surgery 08/22/24 documented as of this encounter
--- OUTSIDE RECORDS SUMMARY | 2024-10-11 20:49 | XMS_ITS | Continuity of Care Document ---
Author Organization [facility] Address [address] [facility] [address] [place] [address] Phone Care Team Providers Care Rehabilitation Team Lead Name Role Phone Miguel Rivera MD, MD [...] Diagnoses Date Provider Providers Copied on Encounter [facility], [address] [place] [address] [address], [place], [place], [id number], [phone] [facility] [place] No Information 5 Miguel Rivera. [address], [address] [place] [address], [facility], . tel:[phone] Referring Provider: Faiza Kline, [address], [facility]. tel:[phone] 7549 [facility], [address] [place] [address] [address], [place], [place], [id number], tel:[phone] SEC [place] [address] [place] No Information 5 Miguel Rivera. [address], [address] [place] [address], [facility], . tel:[phone] Referring Provider: Faiza Kline, [address], [facility]. tel:[phone] [facility], [address] [place] [address] [address], [place], [place], [id number], tel:[phone] [facility] [place] No Information 4 Miguel Rivera. [address], [address], [facility], . tel:[phone] Referring Provider: Faiza Kline, [address], [address]. tel:[phone] 2642 [facility], [address] [place] [address] [address], [place], [place], [id number], tel:[phone] SEC [place] No Information 4 Miguel Rivera. [address], [address] [place] [address], [facility], [place]. tel:[phone] Referring Provider: Faiza Kline, [address], [address]. tel:[phone] Office/outpa tient Visit, [facility], [address] [facility] [address], [place], [place], [id number], tel:[phone] SEC Carroll Taylor Cataract Evaluation (chief complaint) Fuchs dystrophyAge -related post subcapsular cataract Dec-0 3201 4 Miguel Rivera. [address] [facility], [address], [place], [address], [place]. tel:[phone] Referring Provider: Faiza Kline, [address], [address]. tel:[phone] [facility], [address] [facility] [address], [place], [place], [id number], tel:[phone] SEC Carroll Taylor No Information Dec-0 2201 4 Mela Ramirez. [address] [facility] [address], [address], [place], [place], [address], . tel:[phone] Family History Family Member Type Diagnosis Age At Onset No Information Payers Payer name Insurance type Covered democrat ID Authoriza tion(s) [place] [id number] [place] FEP BL [id number] Social History Type Description Quantity Date Captured [...]
--- OUTSIDE RECORDS SUMMARY | 2024-10-11 20:49 | XMS_ITS | Encounter Summary ---
Author Organization [facility] Address [address] [place] [address] Care Team Providers Care Field Adjuster Name Role Phone Brandi Tillman MD Unavailable [phone] Romelia Martinez RN Unavailable Unavailab Brandi Downs MD Primary Care Provider Marbella Wood DO Unavailable [phone] Agatha Smith MD Primary Care Provider Lionel Santo MD Unavailable Jaime Sampson MD Unavailable [phone] Miguel Fall MD Unavailable [phone] No, Physician Primary Care Provider [phone] Ej Madden MD Primary Care Provi rama Benitez Solano OT Unavailable Unavailable Carlos Magana MD Unavailable [phone] Encounter Details Date Type Department Care Team (Late st Contact Info) Description 03/30/2021 Telephone [facility] [address] [place] [address] Sarai Macias, RT Social History Tobacco Use Types Packs/Day Years Used Date Smoking Tobacco: Former Cigarettes 1.5 44 1 966 - 2000 Smokeless Tobacco: Never Alcohol Use Standard Drinks/Week Comments Not Currently 0 (1 standard drink = 0.6 oz pur e alcohol) PHQ-2 Answer Date Recorded PHQ-2 Total Score (If total score is 3 or more points, staff should administer the PHQ-9) 1 12/21/2020 Comments No Sex and Gender Information Value Date Recorded Sex Assigned at Not on file 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 Author [facility] No Romelia Martinez RN Note: For pain to be maintained at a tolerable level for I can be more active, documented as of this encounter Visit Diagnoses Not on filedocumented in this encounter Care Teams Field Adjuster Relationship Specialty Start Date End Date Brandi Tillman MD PCP - General Internal Medicine 01/01/19 02/12/22 Agatha Smith MD [address] [facility] [address] [place] [address] PCP - General Family Practice 02/13/22 12/13/23 No, Physician PCP - General 12/14/23 01/27/24 Ej Madden MD [address] [address] PCP - General Family Practice 01/28/24 Brandi Tillman MD Internal Medicine 09/16/18 02/12/22 Romelia Martinez, RN Registered Nurse Pain Management 05/22/17 Marbella Wood DO [address] [place] [address] Consulting Physician Endocrinology Diabetes & Metabolism 06/07/20 Lionel Santo MD [address] [place] [address] Referring Physician Geriatric Psychiatry 02/13/22 Jaime Sampson MD [address] [facility] [address] [place] [address] Referring Physician Transplant Hepatology 02/13/22 Miguel Fall MD [address] [facility] [address] [place] [address] Consulting Physician Physical Medicine and Rehabilitation 02/13/22 Benitez Solano OT Occupational Therapist Occupational Therapy 08/20/24 Carlos Magana MD [address] [place] [address] [address] [place] [address] Surgeon Orthopedic Surgery 08/22/24 documented as of this encounter
--- OUTSIDE RECORDS SUMMARY | 2024-10-11 20:49 | XMS_ITS | Encounter Summary ---
Author Organization [facility] Address [address] [place] [address] Care Team Providers Care Multifocal Button Generator Name Role Phone Brandi Tillman MD Unavailable [phone] Romelia Martinez RN Unavailable Unavailab Brandi Downs MD Primary Care Provider Marbella Wood DO Unavailable [phone] Agatha Smith MD Primary Care Provider Lionel Santo MD Unavailable Jaime Sampson MD Unavailable [phone] Miguel Fall MD Unavailable [phone] No, Physician Primary Care Provider [phone] Ej Madden MD Primary Care Provi rama Benitez Solano OT Unavailable Unavailable Carlos Magana MD Unavailable [phone] Encounter Details Date Type Department Care Team (Late st Contact Info) Description 04/13/2021 Telephone [facility] [address] [place] [address] Sarai Macias, RT Social History [...] on file 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 Gender Identity Not on file Sexual Orientation [...] on filedocumented in this encounter Care Teams Multifocal Button Generator Relationship Specialty Start Date End Date Brandi Tillman MD PCP - General Internal Medicine 01/01/19 02/12/22 Agatha Smith MD [address] [facility] [address] [place] [address] PCP - General Family Practice 02/13/22 12/13/23 No, Physician PCP - General 12/14/23 01/27/24 Ej Madden MD [address] [address] PCP - General Family Practice 01/28/24 Brandi Tillman MD Internal Medicine 09/16/18 02/12/22 Romelia Martinez, RN Registered Nurse Pain Management 05/22/17 Marbella Wood DO [address] [place] [address] Consulting Physician Endocrinology Diabetes & Metabolism 06/07/20 Lionel Santo MD [address] [place] [address] Referring Physician Geriatric Psychiatry 02/13/22 Jaime Sampson MD [address] [facility] [address] [place] [address] Referring Physician Transplant Hepatology 02/13/22 Miguel Fall MD [address] [facility] [address] [place] [address] Consulting Physician Physical Medicine and Rehabilitation 02/13/22 Benitez oSlano OT Occupational Therapist Occupational Therapy 08/20/24 Carlos Magana MD [address] [place] [address] [address] [place] [address] Surgeon Orthopedic Surgery 08/22/24 documented as of this encounter
--- OUTSIDE RECORDS SUMMARY | 2024-10-11 20:49 | XMS_ITS | Encounter Summary ---
Author Organization [facility] Address [address] [place] [address] Phone Care Team Providers Care Automotive Brake Specialist Name Role Phone Brandi Tillman MD Primary Care Provider Brandi Tillman MD Primary Care Provider Brandi Tillman MD Primary Care Provider Brandi Tillman MD Primary Care Provider Million, Rosa VAUGHN Primary Care Provider [phone] Brandi Tillman MD Primary Care Provider Million, Rosa VAUGHN Primary Care Provider [phone] Brandi Tillman MD Primary Care Provider Million, Rosa VAUGHN Primary Care Provider [phone] Brandi Tillman MD Primary Care Provider Million, Rosa VAUGHN Primary Care Provider [phone] Brandi Tillman MD Primary Care Provider Unknown, Notinfile Primary Care Provider Unavail able Brandi Tillman MD Unavailable [phone] Romelia Martinez RN Unavailable Unavailab Agatha Carl RN Unavailable + [phone] Isaura Bowie RN Unavailable [phone] Brandi Tillman MD Primary Care Provider NinaMarbella veloz Unavailable [phone] Agatha Smith MD Primary Care Provider Lionel Santo MD Unavailable [phone] Jaime Sampson MD Unavailable [phone] Miguel Fall MD Unavailable [phone] No, Physician Primary Care Provider Ej Madden MD Primary Care Provi rama Benitez Solano OT Unavailable Unavailable Carlos Magana MD Unavailable [phone] Encounter Details Date Type Department Care Team (Latest Contact Info) Description 09/21/2004 Orders Only [facility] EML Scanning, Provider Social History Tobacco Use Types Packs/Day Years Used Date Smoking Tobacco: Never Assessed Comments Unknown Sex and Gender Information Value Date Recorded Sex Assigned at Not on file 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 Gender Identity Not on file Sexual Orientation Not on file documented as of this encounter Plan of Treatment Not on file documented as of this encounter Procedures Procedure Name Priority Date/Time Associated Diagnosis Comments SCAN - RADIOLOGY/IMAGING 09/21/2004 documented in this encounter Results * SCAN - RADIOLOGY/IMAGING (09/21/2004) Anatomical Region Laterality Modality Other us Provider Scanning Final Result documented in this encounter Visit Diagnoses Not on filedocumented in this encounter Care Teams Automotive Brake Specialist Relationship Specialty Start Date End Date Brandi [...] Medicine 01/01/19 02/12/22 Agatha Smith MD [address] [facility] [address] [place], [place] [id number] PCP - General Family Practice 02/13/22 12/13/23 No, Physician PCP - General 12/14/23 01/27/24 Ej Madden MD [address] [address] PCP - General Family Practice 01/28/24 Brandi Tillman MD Internal Medicine 09/16/18 02/12/22 Romelia Martinez, SMITHA Registered Nurse Pain Management 05/22/17 Agatha Orozco, SMITHA [address] [place], [place] [id number] Bench Hand Machine 12/26/18 06/13/20 Isaura Bowie, RN [address] [place], [place] [id number] Secondary Liver Coordinator 12/26/18 06/13/20 Marbella Wood DO [address] [facility] [address] [place], [place] [id number] Consulting Physician Endocrinology Diabetes & Metabolism 06/07/20 Lionel Santo MD [address] [place] [address] Referring Physician Geriatric Psychiatry 02/13/22 Jaime Sampson MD [address] [facility] [address] [place] [address] Referring Physician Transplant Hepatology 02/13/22 Miguel Fall MD [address] [facility] [address] [place] [address] Consulting Physician Physical Medicine and Rehabilitation 02/13/22 Benitez Solano, OT Occupational Therapist Occupational Therapy 08/20/24 Carlos Magana MD [address] [place] [address] Surgeon Orthopedic Surgery 08/22/24 documented as of this encounter
[2024-10-11 20:56] VITALS: BP 133/67; PULSE 89; RESP 18; TEMP 36.7; O2SAT 99
--- OUTSIDE RECORDS SUMMARY | 2024-10-11 21:31 | XMS_ITS | Encounter Summary ---
Author Organization [facility] Address [address] [place] [address] Phone Care Team Providers Care Straightener Name Role Phone Brandi Tillman MD Primary Care Provider Brandi Tillman MD Primary Care Provider Brandi Tillman MD Primary Care Provider Brandi Tillman MD Primary Care Provider Million, Rosa VAUGHN Primary Care Provider [phone] Brandi Tillman MD Primary Care Provider Million, Rosa VAUGHN Primary Care Provider [phone] Brandi Tillman MD Primary Care Provider Million, Rosa VAUGHN Primary Care Provider [phone] Brandi Tillman MD Primary Care Provider Million, Rosa VAUGHN Primary Care Provider [phone] Brandi Tillman MD Primary Care Provider Unknown, Notinfile Primary Care Provider Unavail able Brandi Tillman MD Unavailable [phone] Romelia Martinez RN Unavailable Unavailab Agatha Carl RN Unavailable + [phone] Isaura Bowie RN Unavailable [phone] Brandi Tillman MD Primary Care Provider NinaMarbella veloz Unavailable [phone] Agatha Smith MD Primary Care Provider Lionel Santo MD Unavailable Jaime Sampson MD Unavailable [phone] Miguel Fall MD Unavailable [phone] No, Physician Primary Care Provider Ej Madden MD Primary Care Provi rama Benitez Solano OT Unavailable Unavailable Carlos Magana MD Unavailable [phone] Encounter Details Date Type Department Care Team (Latest Contact Info) Description 12/06/2007 Orders Only [facility] EML Scanning, Provider Social History Tobacco Use Types Packs/Day Years Used Date Smoking Tobacco: Never Assessed Comments Unknown Sex and Gender Information Value Date Recorded Sex Assigned at Not on file Legal Sex Female 11:33 PM 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 Gender Identity Not on file Sexual Orientation [...] on filedocumented in this encounter Care Teams Straightener Relationship Specialty Start Date End Date Brandi [...] Medicine 01/01/19 02/12/22 Agatha Smith MD [address] [facility] [address] [place], [place] [id number] PCP - General Family Practice 02/13/22 12/13/23 No, Physician PCP - General 12/14/23 01/27/24 Ej Madden MD [address] [address] PCP - General Family Practice 01/28/24 Brandi Tillman MD Internal Medicine 09/16/18 02/12/22 Romelia Martinez, SMITHA Registered Nurse Pain Management 05/22/17 Agatha Orozco, SMITHA [address] [place], [place] [id number] School Psychologist Assistant 12/26/18 06/13/20 Isaura Bowie, RN [address] [place], [place] [id number] Secondary Liver Coordinator 12/26/18 06/13/20 Marbella Wood DO [address] [facility] [address] [place], [place] [id number] Consulting Physician Endocrinology Diabetes & Metabolism 06/07/20 Lionel Santo MD [address] [place] [address] Referring Physician Geriatric Psychiatry 02/13/22 Jaime Sampson MD [address] [facility] [address] [place] [address] Referring Physician Transplant Hepatology 02/13/22 Miguel Fall MD [address] [facility] [address] [place] [address] Consulting Physician Physical Medicine and Rehabilitation 02/13/22 Benitez Solano, OT Occupational Therapist Occupational Therapy 08/20/24 Carlos Magana MD [address] [place] [address] Surgeon Orthopedic Surgery 08/22/24 documented as of this encounter
--- OUTSIDE RECORDS SUMMARY | 2024-10-11 21:31 | XMS_ITS | Clinical Summary ---
Author Organization [facility] Address [address] [place] [address] Care Team Providers Care Machine Stacker Name Role Phone Romelia Martinez RN Unavailable Unavailab Marbella Chen DO Unavailable Lionel Santo MD Unavailable Jaime Sampson MD Unavailable Miguel Fall MD Unavailable [phone] Ej Madden MD Primary Care Provi rama Benitez Solano OT Unavailable Unavailable Carlos Magana MD Unavailable [phone] Allergies Active Allergy Reactions Criticality Noted Date [...] 1 tablet (200 mg total) by mouth model and mold maker before breakfast Active glucosam-chondr oitin-diet cb25 116-100 mg capsule Take 2 tablets by mouth model and mold maker before breakfast Active teriparatide (Forteo) 20 mcg/dose [...] placed Assessment & Plan (03/30/2023 1:26 PM PURCHASER): Chronic. Struggles with symptoms. Keep appointment with health information specialist for further evaluation Hallux rigidus of [...] mg Assessment & Plan (03/30/2023 1:26 PM PURCHASER): Chronic. Noted on prior imaging. Patient has [...] nontreatment Assessment & Plan (03/30/2023 1:26 PM PURCHASER): Chronic. Patient still declines use of cholesterol medication Cystic disease of liver 01/01/2019 Assessment & Plan (04/24/2024 6:22 PM PURCHASER): Stable and without symptoms. In the absence of right upper quadrant discomfort, I am not convinced she needs to return in follow-up. Imaging should only be performed if she has right upper quadrant symptomatology. She will return in 1 year or when clinically indicated. Assessment & Plan (04/19/2023 6:50 PM PURCHASER): Unchanged with stable radiographic findings from January,, to January,. In the absence of right upper quadrant discomfort, I am not convinced additional imaging is needed for the near future. She will follow-up on an annual basis or when clinically indicated. Assessment & Plan (04/10/2022 5:59 PM PURCHASER): Unchanged on relatively recent imaging studies. Routinely, [...] evaluation. Assessment & Plan (03/31/2021 3:45 PM PURCHASER): Simple cysts versus biliary cystadenomas, smaller than in previous studies. I will continue to follow the lesions with annual MRI. No intervention in the absence of significant increase in size of the lesions. She will return in one year or when clinically indicated. Assessment & Plan (01/01/2019 9:47 AM PURCHASER): The change in appearance of the cyst [...] consult Assessment & Plan (04/19/2023 6:51 PM PURCHASER): I will make a referral to Orthopedic surgery so she may obtain a second opinion. Assessment & Plan (03/30/2023 1:26 PM PURCHASER): Chronic. Struggles with her back. Keep upcoming [...] length Assessment & Plan (03/30/2023 1:27 PM PURCHASER): Chronic. Previously noted. Patient has declined cholesterol [...] holiday. Assessment & Plan (02/04/2018 8:46 AM PURCHASER): Stay on bisphosphonates, calcium and vitamin-D Follow-up bone density August 2018 History of tobacco use 02/07/2017 Rosacea 05/03/2015 Hypothyroidism 10/24/2012 Overview (02/04/2018): Hypothyroid- Assessment & Plan (05/31/2023 5:09 PM CDT): Chronic. Relatively euthyroid. Continue prescription Synthroid. Patient had recent health screening which showed a heterogeneous thyroid. This is unlikely to be of concern. Assessment & Plan (02/04/2018 8:44 AM PURCHASER): She will be continued on the combination [...] instead Assessment & Plan (03/30/2023 1:26 PM PURCHASER): Chronic. Stable. Continue medication and care per Psychiatry Resolved Problems Problem Noted Date Diagnosed Date Resolved Date Screening for colon cancer 06/07/2022 1 Overview (06/07/2022): Added automatically from request for surgery [id number] Special screening for malign ant neoplasms, colon 03/22/2022 05/22/2022 Overview (03/22/2022): Added automatically from request for surgery [id number] Fatigue 03/22/2022 11/29/2022 Overview (03/22/2022): Added automatically from request for surgery [id number] Weight loss, unintentional 03/22/2022 0 05/22/2022 Overview (03/22/2022): Added automatically from request for surgery [id number] Spells of decreased attentiveness 03/02/2022 01/28/2024 Severe episode of recurrent major depressive disorder, without psychotic features 12/03/2019 Renal mass 09/16/2018 02/13/2022 Overview (09/16/2018): Added automatically from request for surgery [id number] Pain of foot 05/03/2016 02/13/2022 Ankle pain [...] Team Description 10/09/2024 1:00 PM CDT Therapy [facility] [place] [id number] Bryson Watters, PT S/P total right hip arthroplasty (Primary Dx) 10/06/2024 1:00 PM CDT Therapy [facility] [place] [id number] Mary Benton, PT S/P total right hip arthroplasty (Primary Dx) 10/02/2024 1:00 PM CDT Therapy [facility] [place] [id number] Mary Benton, PT S/P total right hip arthroplasty (Primary Dx) 09/15/2024 11:00 AM CDT Office Visit [facility] [address] [place] [address] [address] [place] [address] Kwan Chavez NP Aftercare following right hip joint replacement surgery (Primary Dx); Status post total hip replacement, right 09/15/2024 10:38 AM CDT - 09/15/2024 11:59 PM CDT Hospital Encounter [facility] [address] [place] [address] [address] [place] [address] Discharge Disposition: Discharge to home or self care 09/11/2024 Telephone [facility] [address] [place] [address] [address] [place] [address] Carlos Magana MD Post-op; Med Management 09/08/2024 2:15 PM CDT Therapy [facility] [place] [id number] Mary Benton PT S/P total right hip arthroplasty 09/08/2024 Plan of Care Documentation [facility] Physical [place] [id number] 09/02/2024 [facility] Post Discharge Follow up phone call [facility] Surgery Care [address] [place] [address] Toshia Kathleen 09/01/2024 Telephone [facility] [address] [place] [address] [address] [place] [address] Anh Saldaña MA 08/26/2024 Orders Only [facility] [address] [place] [address] [address] [place] [phone] Carlos Magana MD S/P total right hip arthroplasty (Primary Dx) 08/25/2024 Telephone [facility] [address] [place] [address] [address] [place] [address] Carlos Magana MD post-op questions 08/22/2024 8:45 AM CDT - 08/22/2024 11:10 AM CDT Surgery [facility] Operating Room 1 [place] [address] Carlos Magana MD Right Total Hip Arthroplasty 08/22/2024 8:33 AM CDT Anesthesia Event [facility] Operating Room 1 [place] [address] Jaime Menard DO Reynolds, Ethan Emerson, MD 08/22/2024 6:49 AM CDT - 08/23/2024 10:30 AM CDT Hospital Encounter [facility] Surgery Care 1 [place] [address] Carlos Magana MD Primary osteoarthritis of right hip (Primary Dx) Discharge Disposition: Discharge to home or self care 08/13/2024 Results Follow-Up [facility] Medical Group Primary Care at [address] [place] [phone] Ej Madden MD Diagnostic Mammogram Right W Sergio 08/13/2024 Results Follow-Up [facility] Medical Group Primary Care at [address] [place] [address] Ej Madden MD US Breast Right Limited 08/12/2024 12:36 PM CDT - 08/12/2024 11:59 PM CDT Hospital Encounter [facility] [address] [place] [address] Abnormal mammogram of right breast Discharge Disposition: Discharge to home or self care 08/12/2024 12:30 PM CDT - 08/12/2024 11:59 PM CDT Hospital Encounter [address] [address] Abnormal mammogram of right breast Discharge Disposition: Discharge to home or self care 08/11/[address] [facility] [address] [place] [phone] Manda Agee MA Surgical Clearance 08/06/2024 10:30 AM CDT Office Visit [facility] Medical Group Primary Care at [address] [place] [address] Ej Madden MD Preoperative evaluation to rule out surgical contraindication (Primary Dx); Arthritis of right hip; Age-related osteoporosis without current pathological fracture 07/29/2024 12:10 PM CDT Lab [address] [address] Pre-operative exam 07/29/2024 12:08 PM CDT - 07/29/2024 11:59 PM CDT Hospital Encounter [facility] Imaging [facility] [address] [place] [address] Pre-operative exam Discharge Disposition: Discharge to home or self care 07/29/2024 12:05 PM CDT - 07/29/2024 11:59 PM CDT Hospital Encounter [facility] Cardiology [address] [place] [address] Pre-operative exam Discharge Disposition: Discharge to home or self care 07/29/2024 11:00 AM CDT Office Visit [facility] [address] [place] [address] [address] Carlos Magana MD Pre-operative exam (Primary Dx); Primary osteoarthritis of right hip; Spinal stenosis, lumbar region, with neurogenic claudication 07/29/[address] [facility] [address] [place] [address] [address] [place] [address] Manda Agee MA surgery 07/29/[address] [facility] Medical Group Primary Care at [address] [place] [address] Ej Madden MD Appointment Request 07/29/[address] [facility] Medical Group Primary Care at [address] [place] [address] Ej Madden MD Forms Request 07/18/[address] [facility] Medical [facility] Orthopedics [facility] Sports Medicine [address] [place] [phone] Abril Duncan PA 07/17/[address] [facility] Medical Group Primary Care at [address] [place] [address] Ej Madden MD 07/11/2024 3:00 PM CDT Office Visit [facility] [address] [place] [address] Abril Duncan PA Primary osteoarthritis of right hip (Primary Dx) 07/11/2024 2:28 PM CDT - 07/11/2024 11:59 PM CDT Hospital Encounter [facility] Medical [facility] [address] [place] [address], [place] [address] Discharge Disposition: Discharge to home or self care 07/11/2024 7:46 AM CDT - 07/11/2024 11:59 PM CDT Hospital Encounter [facility] Medical [facility] Sports [facility] [address] [place] [address] [address] [place] [address] Discharge Disposition: Discharge to home or self [...] on file Legal Sex Female 11:33 PM PURCHASER Gender Identity Not on file Sexual Orientation [...] Lund MA Medical Devices Implanted Type Area Glass Production Machine Operator Device Identifier Shelf Expiration Date Model / Serial / Lot Costal Cartilage Implanted:Qty: 1 on 07/18/2018 by Jaime Barnard MD at [facility] Bone Nose [employer] 04/25/2023 / [id number] / Rt Total Shoulder Arthroplasty Right: Shoulder [employer] [place] 52mm Sector Hip Shell Acetabular Gription Sterile Latex Free [id number] - [id number] Implanted:Qty: 1 on 08/22/2024 by Carlos Magana MD at [facility] Right: Hip [employer] [id number] 05/26/2034 [id number] / / [id number] [employer] [place] 52mm 36mm Hip Neutral Liner Acetabular Altrx Sterile Latex Free [id number] - [id number] Implanted:Qty: 1 on 08/22/2024 by Carlos Magana MD at [facility] Right: Hip [employer] [id number] 04/25/2029 [id number] / / [id number] [employer] [place] 6.5mm 35mm Acetabular Cancellous Screw Bone Sterile 1217-35-500 - [id number] Implanted:Qty: 1 on 08/22/2024 by Carlos Magana MD at [facility] Right: Hip [employer] [id number] 03/28/2034 1217-35-500 / / [id number] [employer] Actis Collar Hip 7 High Offset Stem Femoral [id number] - [id number] Implanted:Qty: 1 on 08/22/2024 by Carlos Magana MD at [facility] Right: Hip [employer] [id number] 05/26/2034 [id number] / / [id number] [employer] Articul/Aditya 36mm Cementless Hip +1.5mm 12/14 Taper Head Femoral Latex Free [id number] - [id number] Implanted:Qty: 1 on 08/22/2024 by Carlos Magana MD at [facility] Right: Hip [employer] [id number] 03/28/2029 [id number] / / [id number] Procedures Procedure Name Priority Date/Time Associated Diagnosis [...] AM CDT Primary osteoarthritis of right hip [place] AN ELECTIVE ENDOTRACHEAL AIRWAY Routine 08/22/2024 9:18 [...] implants in acceptable position. us Kwan Chavez SOFTWARE SUPPORT SPECIALIST IMG XR PROCEDURES Final Result * eGFR [...] Cee VAUGHN LAB BLOOD ORDERABLES Final Result [facility] 1 [facility] [place] [address] * (ABNORMAL) CBC without differential (08/23/2024 8:07 [...] NRBC abs 0.00 0.00 - 0.01 K/cumm [facility] Blood 08/23/2024 8:07 AM CDT 08/23/2024 8:12 AM CDT Cee VAUGHN LAB BLOOD ORDERABLES Final Result [facility] ([place] 1 [facility] [place] [address] * (ABNORMAL) Basic metabolic panel (08/23/2024 8:07 AM CDT) Sodium 137 135 - 145 mmol/L Potassium, pl 4.1 3.3 - 4.9 mmol/L [facility] Chloride 101 97 - 110 mmol/L [facility]) CO2 23 22 - 32 mmol/L [facility]) Anion gap 13 2 - 15 mmol/L [facility] BUN 14 6 - 25 mg/dL [facility] Creatinine 0.65 0.60 - 1.10 [...] Calcium 8.4(L) 8.5 - 10.3 mg/dL [facility] Blood 08/23/2024 8:07 AM CDT 08/23/2024 8:12 AM CDT us Cee VAUGHN LAB BLOOD ORDERABLES Final Result [facility] ([place] [address] [place] [address] Department [place] [address] * Surgical pathology (08/22/2024 1:25 PM CDT) Tissue (Bone Fragment(s),) 08/22/2024 9:47 AM CDT Narrative PATHOLOGY [facility] ([place]) - 08/27/2024 1:08 PM CDT EPIC results best viewed via link to PDF [facility] Department of Pathology [address] [place] [address] Note to Patients: This report may contain [...] Final Report Patient Name: ABIMBOLA MARTINES Address: [address] [place] [address] Gender: F : 1945 (Age: 78) Service: Surgery Location: [facility] Hospital #: [id number] Patient Type: [facility] OP in bed Taken: 08/22/2024 Received: 08/22/2024 [...] is bisected revealing no subchondral gross lesions. Biscuit Machine Operator sections are submitted in one cassette after decalcification. Messi Wylie R.N., P.A./Jeremy Patel M.D. REPORT IMAGES AND SCANNED DOCUMENTS, IF INCLUDED, ONLY VIEWABLE IN PDF VERSION OF REPORT The performance characteristics of some immunohistochemical stains, fluorescence in-situ hybridization tests and immunophenotyping by flow cytometry cited in this report (if any) were determined by the Surgical Pathology Department at [facility] as part of an ongoing senior quality methods specialist program and in compliance with federally mandated [...] characteristics determined by the Surgical Pathology Department [facility]. It has not been cleared or approved by the U. S. Food and Drug Administration. Note for decalcified specimens: This assay has not been validated on decalcified tissues. Results should be interpreted with caution given the possibility of false negativity on decalcified specimens Carlos Magana MD LAB PATHOLOGY ORDERABLES Final Result [facility] ([place] [address] [place] [address] * XR Pelvis Ortho View (08/22/2024 11:07 [...] Ze Martino D.O. AP: AP Report ID: [id number] Reading Location: [id number] Procedure Note Ze Martino, DO - 08/22/2024 [...] Ze Martino D.O. AP: AP Report ID: [id number] Reading Location: [place] [address] Cee VAUGHN IMG XR PROCEDURES Fin al [...] Shaila Schaffer D.O. PS: PS Report ID: [id number] Reading Location: [id number] Procedure Note Shaila Schaffer, - 08/22/2024 EXAM [...] Shaila Schaffer D.O. PS: PS Report ID: [id number] Reading Location: [id number] Carlos Magana MD IMG XR PROCEDURES Final Result * [place] AN ELECTIVE ENDOTRACHEAL AIRWAY (08/22/2024 9:18 AM [...] with: silk tape Number of attempts: 1 Jiame Menard DO ANESTHESIA ORDERABL ES Final Result [...] Fin al Result [facility] [place]) 1 [facility] [place] [address] * Protime-INR (08/22/2024 7:20 AM CDT) PT 10.4 9.7 - 13.0 sec [facility] INR 0.96 0.90 - 1.20 [facility] Comment: Interpretive data Oral anticoagulant therapeutic ranges: Venous thromboembolism prophylaxis or treatment: 2.0-3.0 CARDIOLOGY Standard range: 2.0-3.0 High-intensity range: 2.5-3.5 Refer to indication-specific guidelines for appropriate target ranges for prosthetic heart valve replacement. Current interpretive data was last revised on 2019. Blood 08/22/2024 7:20 AM CDT 08/22/2024 7:23 AM CDT Carlos Magana MD LAB BLOOD ORDERABLES Fin al Result [facility] ([place] 1 [facility] [place] [address] * US Breast Right Limited (08/12/2024 1:16 PM CDT) Anatomical Region Laterality Modality Breast Right Ultrasound 08/13/2024 3:30 PM CDT Impressions 08/13/2024 3:30 PM CDT The findings are consistent with resolution of a hematoma. No imaging findings to suggest malignancy are seen. The patient may return to screening mammography as per ACR guidelines. OVERALL FINAL ASSESSMENT: [id number] Electronically signed by: Julissa Brenner M.D. Narrative [...] as per ACR guidelines. OVERALL FINAL ASSESSMENT: [id number] Electronically signed by: Julissa Brenner M.D. Narrative [...] by Wili Mcconnell M.D., JR: Report ID: [id number] Reading Location: [id number] Procedure Note Wili Mcconnell MD - 07/31/2024 [...] by Wili Mcconnell M.D., JR: Report ID: [id number] Reading Location: [id number] Carlos Magana MD IMG XR PROCEDURES Final Result * ECG 12 lead (07/29/2024 12:37 PM CDT) 07/29/2024 12:3 9 PM CDT Narrative [facility] - 07/29/2024 12:46 PM CDT Vent Rate: 89 bpm RR Interval: 672 msec [place] Interval: 194 msec QRS Duration: 87 msec QT Interval: 334 msec QTC Interval: 380 msec P-R-T [place]: 56 - -14 - 54 degrees IMPRESSION: SINUS RHYTHM LEFT ATRIAL ENLARGEMENT [-0.15mV P-WAVE IN V1/V2] INFERIOR MYOCARDIAL INFARCTION , OF INDETERMINATE AGE [40+ ms Q WAVE AND/OR ST/T ABNORMALITY IN II/aVF] ABNORMAL ECG Electronically Signed By: Satish Pérez MD Carlos Magana MD ECG ORDERABLES Final Re sult [facility] * eGFR (07/29/2024 12:17 PM CDT) eGFR [...] BLOOD ORDERABLES Fin al Result [facility] ([place] 1 [facility] [place] [address] * Differential, auto (07/29/2024 12:17 PM CDT) [...] Fin al Result [facility] ([place] 1 [facility] [place] [address] * (ABNORMAL) Urinalysis reflex to microscopic and [...] tendency for uric acid stone formation. Source: [facility] [employer] Current Interpretive Data was last revised on [...] AL ORDERABLES Final Result Performing Organization Address City/[facility]/ZIP Co de Phone Number [facility] ([place] [place] [address] * (ABNORMAL) CBC with auto differential (07/29/2024 [...] ORDERABLES Fin al Result Performing Organization Address City/[facility]/ZIP Co de Phone Number [facility] ([place]) [address] [place] [address] * (ABNORMAL) Urinalysis, microscopic only (07/29/2024 12:17 PM CDT) WBC, ur 6-10(A) 0 - 5 /HPF RBC, ur 3-5(A) 0 - 2 /HPF [facility] ([place] Epithelial cells, squamous, ur 1-5 0 - 5 /HPF [facility] ([place]) Mucous, ur Present(A) [facility] ([place]) Culture Reflex Comment Reflex conditions for urine culture (WBC >10) not met. [facility] Urine 07/29/2024 12:1 7 PM CDT 07/29/2024 2:25 PM CDT Carlos Magana MD LAB URINE ORDERABLES Fin al Result Performing Organization Address City/[facility]/ZIP Co de Phone Number [facility] ([place] [address] [place] [address] * Hemoglobin A1c (07/29/2024 12:17 PM CDT) Hgb A1C 5.5 4.0 - 5.6 % Estimated Average Glucose 111 mg/dL [facility] Comment: The ADA recommends reporting an estimated Average Glucose (eAG) with all Hemoglobin A1c results using the equation derived from a study of 507 normal and diabetic adults. Minority populations were underrepresented and children were not included. (Diabetes Care 31:6473-0002, 2008). The eAG is not equivalent to a fasting glucose. Blood 07/29/2024 12:1 7 PM CDT 07/29/2024 12:44 PM CDT Carlos Magana MD LAB BLOOD ORDERABLES Fin al Result [facility] [address] [place] [address] * (ABNORMAL) Comprehensive metabolic panel (07/29/2024 12:17 PM CDT) Sodium 141 135 - 145 mmol/L Potassium, pl 4.1 3.3 - 4.9 mmol/L [facility] ([place] Chloride 104 97 - 110 mmol/L [facility] ([place]) CO2 25 22 - 32 mmol/L [facility] [...] MD LAB BLOOD ORDERABLES Fin al Result [facility] ([place]) 1 [facility] [place] [address] * XR Hip Right 2 or 3 Views (07/11/2024 3:05 PM CDT) Anatomical Region Laterality Modality Lower Extremities, Hip, Pelvis Right D igital Radiography Narrative 07/11/2024 4:51 PM CDT Radiographs of the right hip are reviewed and interpreted and compared with previous views. No acute fractures are noted. Advanced degenerative changes are seen of the right hip joint with [id number] joint space narrowing of the superior joint [...] Bone mineral density was performed on a Hol[employer]napeee Discovery Densitometer. Based on machine cross-calibration and [...] assessment and scan interpretation were performed by Vernell Quiros M.D. who is certified by the International Society of Clinical Densitometry. [id number] us Marbella Wood DO [facility] DXA PROCEDURES Ruth l Result * COLONOSCOPY (07/12/2022 7:14 AM CDT) Anatomical Region Laterality Modality Other Narrative Procedure Note Cristobal Osorio MD - 07/12/2022 7:14 AM CDT [facility] Patient Name: Abimbola Martines Procedure Date: 07/12/2022 7:14 AM Date of : 1945 Admit Type: Outpatient Age: 76 Gender: Female Attending MD: Cristobal Osorio M.D. Room: [facility] ENDOSCOPY ROOM 2 Note Status: Finalized Patient [...] procedure were verified by the physician, the stone polisher and the mold maintenance technician in the endoscopy suite. Mental Status [...] passed under direct vision.The Pediatric Colonoscope [id number] was introduced through the anus and advanced [...] 7:14 AM Procedure Code(s): --- Professional --- 88602, Colonoscopy, flexible; with biopsy, single or multiple --- Technical --- 02008, Colonoscopy, flexible; with biopsy, single or multiple [...] perforation orabscess without bleeding CPT copyright 2020 [employer]. All rights reserved. The codes documented in this report are preliminary and upon breast puller reviewmay be revised to meet current compliance requirements. Recognized by the [employer] for promoting quality [...] RNA Detection and Quantitation by Real-Time Reverse Emission Specialist-PCR (RT-PCR). Current interpretive data was last revised on 2016. Blood specimen (specimen) 11/12/2018 12:08 PM CDT 11/12/2018 5:35 PM CDT Brandi Tillman MD LAB MICROBIOLOGY - GEN ERAL ORDERABLES Edited Result - Final SERGEY [address] [place] [address] from Last 3 Months or Most Recently Relevant to Health Maintenance Additional Health Concerns Active Problems Noted Date Diagnosed Date Autogenerated Problem 08/23/2024 Insurance MEDICARE [facility] MEDICARE [facility] MEDICARE [facility] Member Subscriber Plan / Payer (Ef fective 1994-Present) Name:Abimbola Martines Relation to Subscriber:Spouse Name:CONRADDARCI Ramirez Date of :1936 (Home) Address: [address] [place] [id number] Payer ID:[id number] (NAIC) Group ID:[id number] Type:As It Is Address: [facility] [id number] [place] [id number] Advance Directives For more information, please contact: [phone] Documents on File Type Date Recorded Patient Biscuit Machine Operator Expl anation ADVANCE DIRECTIVE 07/18/2018 6:32 AM [...] 9:01 AM 06/07/2022 9:01 AM Care Teams Machine Stacker Relationship Specialty Start Date End Date Ej Madden MD [address] [facility] [address] [place] [address] PCP - General Family Practice 01/28/24 Romelia Martinez, SMITHA Registered Nurse Pain Management 05/22/17 Marbella Wood DO [address] [place] [address] Consulting Physician Endocrinology Diabetes & Metabolism 06/07/20 Lionel Santo MD [address] [place] [address] Referring Physician Geriatric Psychiatry 02/13/22 Jaime Sampson MD [address] [facility] [address] [place] [address] Referring Physician Transplant Hepatology 02/13/22 Miguel Fall MD [address] [facility] [address] [address] [place] [address] Consulting Physician Physical Medicine and Rehabilitation 02/13/22 Benitez Solano, OT Occupational Therapist Occupational Therapy 08/20/24 Carlos Magana MD [address] [place] [address] [address] Surgeon Orthopedic Surgery 08/22/24
--- OUTSIDE RECORDS SUMMARY | 2024-10-11 21:31 | XMS_ITS | Continuity of Care Document ---
Author Organization [employer] [facility] [employer] Address [address] [facility] [address] [place] [address] Phone Care Team Providers Care Radiology Asst Name Role Phone Miguel Rivera MD, MD [...] Remove Cataract, Insert Lens IOLMaster-Professional Office/outpatient Visit, [facility] Advance Directives Directive Yes / No Effective Date File Name No Information Encounters Encounter Description Practice Location Reason(s) For Visit Diagnoses Date Provider Providers Copied on Encounter [facility], [address] [place] [address] [address], [place], [place], [id number], [phone] [facility] [place] No Information 5 Miguel Rivera. [address], [address] [place] [address], [facility], . tel:[phone] Referring Provider: Faiza Kline, [address], [facility]. tel:[phone] 6020 [facility], [address] [place] [address] [address], [place], [place], [id number], tel:[phone] SEC [address] [place] No Information 5 Miguel Rivera. [address], [address] [place] [address], [facility], . tel:[phone] Referring Provider: Faiza Kline, [address], [facility]. tel:[phone] 4511 [facility], [address] [place] [address] [address], [place], [place], [id number], tel:[phone] [facility] [place] No Information 4 Miguel Rivera. [address], [address], [facility], . tel:[phone] Referring Provider: Faiza Kline, [address], [address]. tel:[phone] 2875 [facility], [address] [place] [address] [address], [place], [place], [id number], tel:[phone] SEC [address] [place] No Information 4 Miguel Rivera. [address], [address] [place] [address], [facility], [place]. tel:[phone] Referring Provider: Faiza Kline, [address], [address]. tel:[phone] Office/outpa tient Visit, [facility], [address] [facility] [address], [place], [place], [id number], tel:[phone] SEC [place] Cataract Evaluation (chief complaint) Fuchs dystrophyAge -related post subcapsular cataract Dec-0 3201 4 Miguel Rivera. [address] [facility], [address], [place], [address], [place]. tel:[phone] Referring Provider: Faiza Kline, [address], [address]. tel:[phone] [facility], [address] [facility] [address], [place], [place], [id number], tel:[phone] SEC Carroll [place] No Information Dec-0 2201 4 Mela Ramirez. [address] [facility] [address], [address], [place], [place], [id number], . tel:[phone] Family History Family Member Type Diagnosis Age At Onset No Information Payers Payer name Insurance type Covered alliance party ID Authoriza tion(s) [place] [id number] [place] F[place] BL [id number] Social History Type Description Quantity Date Captured [...]
--- OUTSIDE RECORDS SUMMARY | 2024-10-11 21:31 | XMS_ITS | Encounter Summary ---
Author Organization [facility] Healthcare Address [address] [place] [address] Care Team Providers Care Criminalist Technician Name Role Phone Brandi Tillman MD Unavailable [phone] Romelia Martinez RN Unavailable Unavailab Brandi Downs MD Primary Care Provider Marbella Wood DO Unavailable [phone] Agatha Smith MD Primary Care Provider Lionel Santo MD Unavailable Jaime Sampson MD Unavailable [phone] Miguel Fall MD Unavailable [phone] No, Physician Primary Care Provider [phone] Ej Madden MD Primary Care Provi rama Benitez Solano OT Unavailable Unavailable Carlos Magana MD Unavailable [phone] Encounter Details Date Type Department Care Team (Late st Contact Info) Description 04/13/[address] 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 Gender Identity Not on file Sexual [...] on filedocumented in this encounter Care Teams Criminalist Technician Relationship Specialty Start Date End Date Brandi Tillman MD PCP - General Internal Medicine 01/01/19 02/12/22 Agatha Smith MD [address] [facility] [address] [place] [address] PCP - General Family Practice 02/13/22 12/13/23 No, Physician PCP - General 12/14/23 01/27/24 Ej Madden MD [address] [address] PCP - General Family Practice 01/28/24 Brandi Tillman MD Internal Medicine 09/16/18 02/12/22 Romelia Martinez, RN Registered Nurse Pain Management 05/22/17 Marbella Wood DO [address] [place] [address] Consulting Physician Endocrinology Diabetes & Metabolism 06/07/20 Lionel Santo MD [address] [place] [address] Referring Physician Geriatric Psychiatry 02/13/22 Jaime Sampson MD 1 [facility] [address] [place] [address] Referring Physician Transplant Hepatology 02/13/22 Miguel Fall MD [address] [facility] [address] [place] [address] Consulting Physician Physical Medicine and Rehabilitation 02/13/22 Benitez Solano OT Occupational Therapist Occupational Therapy 08/20/24 Carlos Magana MD [address] [place] [address] [address] [address] [place] [address] Surgeon Orthopedic Surgery 08/22/24 documented as of this encounter
--- OUTSIDE RECORDS SUMMARY | 2024-10-11 21:31 | XMS_ITS | Clinical Summary ---
Author Organization [email or web address] Address [address] [facility] [place] [address] Care Team Providers Care Roll Carrier Name Role Phone Ej Fitzgerald DO Primary Care Provider + Source Comments [email or web address],non-owned Affiliates and Associated Physician Practices is amultiple site organization consisting of ambulatory clinics and hospital sitesin [place], [place], [place] and [place]. This disclosure is being madepursuant to the Care Everywhere program and may not contain all information available regarding this patient. 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 Gender Identity Not on file Sexual Orientation Not on file Last Filed Vital Signs Vital Sign Reading Time Taken Comments Blood Pressure 121/85 05/15/2024 10:59 AM CDT Pulse 85 05/15/2024 10:59 AM CDT Temperature 36.7 C (98 F) 07/24/2023 9:19 AM CDT Respiratory Rate 20 02/21/2022 9:24 AM CLINICAL CYTOPATHOLOGIST Oxygen Saturation 96% 09/20/2023 9:28 AM CDT [...] Visit [facility] [address] [facility] [place] [id number] Aj Israel MD [address] [place] [address] Health Maintenance Due Date Last Done Comments [...] age to complete this topic Insurance MEDICARE [facility] MEDICARE [facility]ICARE [facility]THE[facility] Advance Directives * Full Code (Latest Code Status on File) Date Activated Date Inactivated Comments 01/14/2021 12:40 AM 01/15/2021 12:59 PM Care Teams Roll Carrier Relationship Specialty Start Date End Date Ej Fitzgerald DO [address] [place] [address] PCP - General Internal Medicine 04/30/24
--- OUTSIDE RECORDS SUMMARY | 2024-10-11 21:31 | XMS_ITS | Encounter Summary ---
Author Organization [facility] Address [address] [place] [address] Phone Care Team Providers Care Dwarf Tree Grower Name Role Phone Brandi Tillman MD Primary Care Provider Brandi Tillman MD Primary Care Provider Brandi Tillman MD Primary Care Provider Brandi Tillman MD Primary Care Provider Million, Rosa VAUGHN Primary Care Provider [phone] Brandi Tillman MD Primary Care Provider Million, Rosa VAU[place] Primary Care Provider [phone] Brandi Tillman MD Primary Care Provider Million, Rosa VAUGHN Primary Care Provider [phone] Brandi Tillman MD Primary Care Provider Million, Rosa VAUGHN Primary Care Provider [phone] Brandi Tillman MD Primary Care Provider Unknown, Notinfile Primary Care Provider Unavail able Brandi Tillman MD Unavailable [phone] Romelia Martinez RN Unavailable Unavailab Agatha Carl RN Unavailable + [phone] Isaura Bowie RN Unavailable [phone] Brandi Tillman MD Primary Care Provider NinaMarbella veloz Unavailable [phone] Agatha Smith MD Primary Care Provider Lionel Santo MD Unavailable Jaime Sampson MD Unavailable [phone] Miguel Fall MD Unavailable [phone] No, Physician Primary Care Provider [phone] Ej Madden MD Primary Care Provi rama Benitez Solano OT Unavailable Unavailable Carlos Magana MD Unavailable [phone] Encounter Details Date Type Department Care Team (Latest Contact Info) Description 06/05/2001 Orders Only [facility] EML Scanning, Provider Social History Tobacco Use Types Packs/Day Years Used Date Smoking Tobacco: Never Assessed Comments Unknown Sex and Gender Information Value Date Recorded Sex Assigned at Not on file 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 Gender Identity Not on file Sexual Orientation [...] on filedocumented in this encounter Care Teams Dwarf Tree Grower Relationship Specialty Start Date End Date Brandi [...] Medicine 01/01/19 02/12/22 Agatha Smith MD [address] [facility] [address] [place], [place] [id number] PCP - General Family Practice 02/13/22 12/13/23 No, Physician PCP - General 12/14/23 01/27/24 Ej Madden MD [address] [address] PCP - General Family Practice 01/28/24 Brandi Tillman MD Internal Medicine 09/16/18 02/12/22 Romelia Martinez, SMITHA Registered Nurse Pain Management 05/22/17 Agatha Orozco, SMITHA [address] [place], [place] [id number] Furnace Erector 12/26/18 06/13/20 Isaura Bowie, RN [address] [place], [place] [id number] Secondary Liver Coordinator 12/26/18 06/13/20 Marbella Wood DO [address] [facility] [address] [place], [place] [id number] Consulting Physician Endocrinology Diabetes & Metabolism 06/07/20 Lionel Santo MD [address] [place] [address] Referring Physician Geriatric Psychiatry 02/13/22 Jaime Sampson MD [address] [facility] [address] [place] [address] Referring Physician Transplant Hepatology 02/13/22 Miguel Fall MD [address] [facility] [address] [place] [address] Consulting Physician Physical Medicine and Rehabilitation 02/13/22 Benitez Solano, OT Occupational Therapist Occupational Therapy 08/20/24 Carlos Magana MD [address] [place] [address] Surgeon Orthopedic Surgery 08/22/24 documented as of this encounter
--- OUTSIDE RECORDS SUMMARY | 2024-10-11 21:31 | XMS_ITS | Encounter Summary ---
Author Organization [facility] Healthcare Address [address] [place] [address] Care Team Providers Care Release Specialist Name Role Phone Romelia Martinez RN Unavailable Unavailab Marbella Chen DO Unavailable Lionel Santo MD Unavailable Jaime Sampson MD Unavailable [phone] Miguel Fall MD Unavailable [phone] Ej Madden MD Primary Care Provi rama Benitez Solano OT Unavailable Unavailable Carlos Magana MD Unavailable Encounter Details Date Type Department Care Team (Late st Contact Info) Description 08/13/2024 Results Follow-Up [facility] Primary Care at [place] [address] [facility] [address] [place] [address] Ej Madden MD [address] [place] [address] Diagnostic Mammogram Right W Sergio [...] on file 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 Gender Identity Not on file Sexual Orientation [...] documented as of this encounter Care Teams Release Specialist Relationship Specialty Start Date End Date Ej Madden MD [address] [facility] [address] [place] [address] PCP - General Family Practice 01/28/24 Romelia Martinez, RN Registered Nurse Pain Management 05/22/17 Marbella Wood DO [address] [facility] [address] [place] [address] Consulting Physician Endocrinology Diabetes & Metabolism 06/07/20 Lionel Santo MD [address] [place] [address] Referring Physician Geriatric Psychiatry 02/13/22 Jaime Sampson MD 1 [facility] [address] [address] [place] [address] Referring Physician Transplant Hepatology 02/13/22 Miguel Fall MD [address] [facility] [address] [place] [address] Consulting Physician Physical Medicine and Rehabilitation 02/13/22 Benitez Solano, OT Occupational Therapist Occupational Therapy 08/20/24 Carlos Magana MD [address] [place] [address] [address] [place] [address] Surgeon Orthopedic Surgery 08/22/24 documented as of this encounter
--- OUTSIDE RECORDS SUMMARY | 2024-10-11 21:31 | XMS_ITS | Encounter Summary ---
Author Organization [facility] Address [address] [place] [address] Phone Care Team Providers Care Title Curator Name Role Phone Brandi Tillman MD Primary Care Provider Brandi Tillman MD Primary Care Provider Brandi Tillman MD Primary Care Provider Brandi Tillman MD Primary Care Provider Million, Rosa VAUGHN Primary Care Provider [phone] Brandi Tillman MD Primary Care Provider Million, Rosa VAUGHN Primary Care Provider [phone] Brandi Tillman MD Primary Care Provider Million, Rosa VAUGHN Primary Care Provider [phone] Brandi Tillman MD Primary Care Provider Million, Rosa VAUGHN Primary Care Provider [phone] Brandi Tillman MD Primary Care Provider Unknown, Notinfile Primary Care Provider Unavail able Brandi Tillman MD Unavailable [phone] Romelia Martinez RN Unavailable Unavailab Agatha Carl RN Unavailable + [phone] Isaura Bowie RN Unavailable [phone] Brandi Tillman MD Primary Care Provider NinaMarbella veloz Unavailable [phone] Agatha Smith MD Primary Care Provider Lionel Santo MD Unavailable Jaime Sampson MD Unavailable [phone] Miguel Fall MD Unavailable [phone] No, Physician Primary Care Provider [phone] Ej Madden MD Primary Care Provi rama Benitez Solaon OT Unavailable Unavailable Carlos Magana MD Unavailable [phone] Encounter Details Date Type Department Care Team (Latest Contact Info) Description 09/21/2004 Orders Only [facility] EML Scanning, Provider Social History Tobacco Use Types Packs/Day Years Used Date Smoking Tobacco: Never Assessed Comments Unknown Sex and Gender Information Value Date Recorded Sex Assigned at Not on file 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 Gender Identity Not on file Sexual Orientation [...] on filedocumented in this encounter Care Teams Title Curator Relationship Specialty Start Date End Date Brandi [...] Medicine 01/01/19 02/12/22 Agatha Smith MD [address] [facility] [address] [place], [place] [id number] PCP - General Family Practice 02/13/22 12/13/23 No, Physician PCP - General 12/14/23 01/27/24 Ej Madden MD [address] [address] PCP - General Family Practice 01/28/24 Brandi Tillman MD Internal Medicine 09/16/18 02/12/22 Romelia Martinez, SMITHA Registered Nurse Pain Management 05/22/17 Agatha Orozco, SMITHA [address] [place], [place] [id number] Edge Trimmer Mechanic 12/26/18 06/13/20 Isaura Bowie, RN [address] [place], [place] [id number] Secondary Liver Coordinator 12/26/18 06/13/20 Marbella Wood DO [address] [facility] [address] [place], [place] [id number] Consulting Physician Endocrinology Diabetes & Metabolism 06/07/20 Lionel Santo MD [address] [place] [address] Referring Physician Geriatric Psychiatry 02/13/22 Jaime Sampson MD 1 [facility] [address] [place] [address] Referring Physician Transplant Hepatology 02/13/22 Miguel Fall MD [address] [facility] [address] [place] [address] Consulting Physician Physical Medicine and Rehabilitation 02/13/22 Benitez Solano, OT Occupational Therapist Occupational Therapy 08/20/24 Carlos Magana MD [address] [place] [address] Surgeon Orthopedic Surgery 08/22/24 documented as of this encounter
--- OUTSIDE RECORDS SUMMARY | 2024-10-11 21:31 | XMS_ITS | Encounter Summary ---
Author Organization [facility] Address [address] [place] [address] Phone Care Team Providers Care Art Supervisor Name Role Phone Brandi Tillman MD Primary Care Provider Brandi Tillman MD Primary Care Provider Brandi Tillman MD Primary Care Provider Brandi Tillman MD Primary Care Provider Million, Rosa VAUGHN Primary Care Provider [phone] Brandi Tillman MD Primary Care Provider Million, Rosa VAUGHN Primary Care Provider [phone] Brandi Tillman MD Primary Care Provider Million, Rosa VAU[place]N Primary Care Provider [phone] Brandi Tillman MD Primary Care Provider Million, Rosa VAUGHN Primary Care Provider [phone] Brandi Tillman MD Primary Care Provider Unknown, Notinfile Primary Care Provider Unavail able Brandi Tillman MD Unavailable [phone] Romelia Martinez RN Unavailable Unavailab Agatha Carl RN Unavailable + [phone] Isaura Bowie RN Unavailable [phone] Brandi Tillman MD Primary Care Provider NinaMarbella veloz Unavailable [phone] Agatha Smith MD Primary Care Provider Lionel Santo MD Unavailable [phone] Jaime Sampson MD Unavailable [phone] Miguel Fall MD Unavailable [phone] No, Physician Primary Care Provider Ej Madden MD Primary Care Provi rama Benitez Solano OT Unavailable Unavailable Carlos Magana MD Unavailable [phone] Encounter Details Date Type Department Care Team (Latest Contact Info) Description 12/19/2007 Orders Only [facility] EML Scanning, Provider Social History Tobacco Use Types Packs/Day Years Used Date Smoking Tobacco: Never Assessed Comments Unknown Sex and Gender Information Value Date Recorded Sex Assigned at Not on file 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 Gender Identity Not on file Sexual Orientation [...] on filedocumented in this encounter Care Teams Art Supervisor Relationship Specialty Start Date End Date Brandi [...] Agatha Smith MD [address] [facility] [address] [place], [place] [id number] PCP - General Family Practice 02/13/22 12/13/23 No, Physician PCP - General 12/14/23 01/27/24 Ej Madden MD [address] [address] PCP - General Family Practice 01/28/24 Brandi Tillman MD Internal Medicine 09/16/18 02/12/22 Romelia Martinez, SMITHA Registered Nurse Pain Management 05/22/17 Agatha Orozco, SMITHA [address] [place], [place] [phone] Lead Network Engineer 12/26/18 06/13/20 Isaura Bowie, RN [address] [place], [place] [id number] Secondary Liver Coordinator 12/26/18 06/13/20 Marbella Wood DO [address] [facility] [address] [place], [place] [id number] Consulting Physician Endocrinology Diabetes & Metabolism 06/07/20 Lionel Santo MD [address] [place] [address] Referring Physician Geriatric Psychiatry 02/13/22 Jaime Sampson MD 1 [facility] [address] [place] [address] Referring Physician Transplant Hepatology 02/13/22 Miguel Fall MD [address] [facility] [address] [place] [address] Consulting Physician Physical Medicine and Rehabilitation 02/13/22 Benitez Solano, OT Occupational Therapist Occupational Therapy 08/20/24 Carlos Magana MD [address] [place] [address] Surgeon Orthopedic Surgery 08/22/24 documented as of this encounter
--- OUTSIDE RECORDS SUMMARY | 2024-10-11 21:31 | XMS_ITS | Encounter Summary ---
Author Organization [facility] Healthcare Address [address] [place] [address] Care Team Providers Care Aquatics Group Fitness Instructor Name Role Phone Romelia Martinez RN Unavailable Unavailab Marbella Chen DO Unavailable Lionel Santo MD Unavailable Jaime Sampson MD Unavailable [phone] Miguel Fall MD Unavailable [phone] Ej Madden MD Primary Care Provi rama Benitez Solano OT Unavailable Unavailable Carlos Magana MD Unavailable [phone] Encounter Details Date Type Department Care Team (Late st Contact Info) Description 08/13/2024 Results Follow-Up [facility] Medical Group Primary Care at [place] [address] [facility] [address] [place] [address] Ej Madden MD [address] [place] [address] US Breast Right Limited Social [...] on file 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 Gender Identity Not on file Sexual Orientation [...] documented as of this encounter Care Teams Aquatics Group Fitness Instructor Relationship Specialty Start Date End Date Ej Madden MD [address] [facility] [address] [place] [address] PCP - General Family Practice 01/28/24 Romelia Martinez, RN Registered Nurse Pain Management 05/22/17 Marbella Wood DO [address] [facility] [address] [place] [address] Consulting Physician Endocrinology Diabetes & Metabolism 06/07/20 Lionel Santo MD [address] [place] [address] Referring Physician Geriatric Psychiatry 02/13/22 Jaime Sampson MD 1 [facility] [address] [place] [address] Referring Physician Transplant Hepatology 02/13/22 Miguel Fall MD [address] [facility] [address] [place] [address] Consulting Physician Physical Medicine and Rehabilitation 02/13/22 Benitez Solano, OT Occupational Therapist Occupational Therapy 08/20/24 Carlos Magana MD [address] [place] [address] [address] [place] [address] Surgeon Orthopedic Surgery 08/22/24 documented as of this encounter
--- OUTSIDE RECORDS SUMMARY | 2024-10-11 21:31 | XMS_ITS | Encounter Summary ---
Author Organization [facility] Healthcare Address [address] [place] [address] Phone Care Team Providers Care Wood Flooring Specialist Name Role Phone Brandi Tillman MD Primary Care Provider Brandi Tillman MD Primary Care Provider Brandi Tillman MD Primary Care Provider Brandi Tillman MD Primary Care Provider Million, Rosa VAUGHN Primary Care Provider [phone] Brandi Tillman MD Primary Care Provider Million, Rosa VAUGHN Primary Care Provider [phone] Brandi Tillman MD Primary Care Provider Million, Rosa VAUGHN Primary Care Provider [phone] Barndi Tillman MD Primary Care Provider Million, Rosa VAUGHN Primary Care Provider [phone] Brandi Tillman MD Primary Care Provider Unknown, Notinfile Primary Care Provider Unavail able Brandi Tillman MD Unavailable [phone] Romelia Martinez RN Unavailable Unavailab Agatha Carl RN Unavailable + [phone] Isaura Bowie RN Unavailable [phone] Brandi Tillman MD Primary Care Provider NinaMarbella veloz Unavailable [phone] Agatha Smith MD Primary Care Provider Lionel Santo MD Unavailable [phone] Jaime Sampson MD Unavailable [phone] Miguel Fall MD Unavailable [phone] No, Physician Primary Care Provider Ej Madden MD Primary Care Provi rama Benitez Solano OT Unavailable Unavailable Carlos Magana MD Unavailable [phone] Encounter Details Date Type Department Care Team (Latest Contact Info) Description 11/16/2005 Orders Only [facility] EML Scanning, Provider Social History Tobacco Use Types Packs/Day Years Used Date Smoking Tobacco: Never Assessed Comments Unknown Sex and Gender Information Value Date Recorded Sex Assigned at Not on file 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 Gender Identity Not on file Sexual Orientation [...] on filedocumented in this encounter Care Teams Wood Flooring Specialist Relationship Specialty Start Date End Date [...] [facility] [address] [place], [place] [id number] PCP - General Family Practice 02/13/22 12/13/23 No, Physician PCP - General 12/14/23 01/27/24 Ej Madden MD [address] [address] PCP - General Family Practice 01/28/24 Brandi Tillman MD Internal Medicine 09/16/18 02/12/22 Romelia Martinez, SMITHA Registered Nurse Pain Management 05/22/17 Agatha Orozco, SMITHA [address] [place], [place] [id number] Segmental Paver Installer 12/26/18 06/13/20 Isaura Bowie, RN [address] [place], [place] [id number] Secondary Liver Coordinator 12/26/18 06/13/20 Marbella Wood DO [address] [facility] [address] [place], [place] [id number] Consulting Physician Endocrinology Diabetes & Metabolism 06/07/20 Lionel Santo MD [address] [place] [address] Referring Physician Geriatric Psychiatry 02/13/22 Jaime Sampson MD 1 [facility] [address] [place] [address] Referring Physician Transplant Hepatology 02/13/22 Miguel Fall MD [address] [facility] [address] [place] [address] Consulting Physician Physical Medicine and Rehabilitation 02/13/22 Benitez Solano, OT Occupational Therapist Occupational Therapy 08/20/24 Carlos Magana MD [address] [place] [address] Surgeon Orthopedic Surgery 08/22/24 documented as of this encounter
--- OUTSIDE RECORDS SUMMARY | 2024-10-11 21:31 | XMS_ITS | Encounter Summary ---
Author Organization [facility] Address [address] [place] [address] Phone Care Team Providers Care Podiatrist Name Role Phone Brandi Tillman MD Primary Care Provider Brandi Tillman MD Primary Care Provider Brandi Tillman MD Primary Care Provider Brandi Tillman MD Primary Care Provider Million, Rosa VAUGHN Primary Care Provider [phone] Bradni Tillman MD Primary Care Provider Million, Rosa VAUGHN Primary Care Provider [phone] Brandi Tillman MD Primary Care Provider Million, Rosa VAUGHN Primary Care Provider [phone] Brandi Tillman MD Primary Care Provider Million, Rosa VAUGHN Primary Care Provider [phone] Brandi Tillman MD Primary Care Provider Unknown, Notinfile Primary Care Provider Unavail able Brandi Tillman MD Unavailable [phone] Romelia Martinez RN Unavailable Unavailab Agatha Carl RN Unavailable + [phone] Isaura Bowie RN Unavailable [phone] Brandi Tillman MD Primary Care Provider Nina Marbella Cheung Unavailable [phone] Agatha Smith MD Primary Care Provider Lionel Santo MD Unavailable [phone] Jaime Sampson MD Unavailable [phone] Miguel Fall MD Unavailable [phone] No, Physician Primary Care Provider Ej Madden MD Primary Care Provi rama Benitez Solano OT Unavailable Unavailable Carlos Magana MD Unavailable [phone] Encounter Details Date Type Department Care Team (Latest Contact Info) Description 01/10/2012 Orders Only [facility] E[facility] Scanning, Provider Social History Tobacco Use Types Packs/Day Years Used Date Smoking Tobacco: Never Assessed Comments Unknown Sex and Gender Information Value Date Recorded Sex Assigned at Not on file 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 Gender Identity Not on file Sexual [...] on filedocumented in this encounter Care Teams Podiatrist Relationship Specialty Start Date End Date Brandi [...] Medicine 01/01/19 02/12/22 Agatha Smith MD [address] [facility] [address] [place], [place] [phone] PCP - General Family Practice 02/13/22 12/13/23 No, Physician PCP - General 12/14/23 01/27/24 Ej Madden MD [address] [address] PCP - General Family Practice 01/28/24 Brandi Tillman MD Internal Medicine 09/16/18 02/12/22 Romelia Martinez, SMITHA Registered Nurse Pain Management 05/22/17 Agatha Oroczo, SMITHA [address] [place], [place] [phone] Shipping Room Helper 12/26/18 06/13/20 Isaura Bowie, RN [address] [place], [place] [id number] Secondary Liver Coordinator 12/26/18 06/13/20 Marbella Wood DO [address] [facility] [address] [place], [place] [id number] Consulting Physician Endocrinology Diabetes & Metabolism 06/07/20 Lionel Santo MD [address] [place] [address] Referring Physician Geriatric Psychiatry 02/13/22 Jaime Sampson MD 1 [facility] [address] [place] [address] Referring Physician Transplant Hepatology 02/13/22 Miguel Fall MD [address] [facility] [address] [place] [address] Consulting Physician Physical Medicine and Rehabilitation 02/13/22 Benitez Solano, OT Occupational Therapist Occupational Therapy 08/20/24 Carlos Magana MD [address] [place] [address] Surgeon Orthopedic Surgery 08/22/24 documented as of this encounter
--- OUTSIDE RECORDS SUMMARY | 2024-10-11 21:31 | XMS_ITS | Encounter Summary ---
Author Organization [facility] Healthcare Address [address] [place] [address] Care Team Providers Care Certification And Selection Specialist Name Role Phone Brandi Tillman MD Unavailable [phone] Romelia Martinez RN Unavailable Unavailab Brandi Downs MD Primary Care Provider Marbella Wood DO Unavailable [phone] Agatha Smith MD Primary Care Provider Lionel Santo MD Unavailable Jaime Sampson MD Unavailable [phone] Miguel Fall MD Unavailable [phone] No, Physician Primary Care Provider [phone] Ej Madden MD Primary Care Provi rama Benitez Solnao OT Unavailable Unavailable Carlos Magana MD Unavailable [phone] Encounter Details Date Type Department Care Team (Late st Contact Info) Description 03/30/[address] 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 Gender Identity Not on file Sexual Orientation [...] on filedocumented in this encounter Care Teams Certification And Selection Specialist Relationship Specialty Start Date End Date Brandi Tillman MD PCP - General Internal Medicine 01/01/19 02/12/22 Agatha Smith MD [address] [facility] [address] [place] [address] PCP - General Family Practice 02/13/22 12/13/23 No, Physician PCP - General 12/14/23 01/27/24 Ej Madden MD [address] [address] PCP - General Family Practice 01/28/24 Brandi Tillman MD Internal Medicine 09/16/18 02/12/22 Romelia Martinez, RN Registered Nurse Pain Management 05/22/17 Marbella Wood DO [address] [place] [address] Consulting Physician Endocrinology Diabetes & Metabolism 06/07/20 Lionel Santo MD [address] [place] [address] Referring Physician Geriatric Psychiatry 02/13/22 Jaime Sampson MD [address] [facility] [address] [place] [address] Referring Physician Transplant Hepatology 02/13/22 Miguel Fall MD [address] [facility] [address] [place] [address] Consulting Physician Physical Medicine and Rehabilitation 02/13/22 Benitez Solano OT Occupational Therapist Occupational Therapy 08/20/24 Carlos Magana MD [address] [place] [address] [address] [place] [place] [address] Surgeon Orthopedic Surgery 08/22/24 documented as of this encounter
--- OUTSIDE RECORDS SUMMARY | 2024-10-11 21:31 | XMS_ITS | Encounter Summary ---
Author Organization [facility] Address [address] [place] [address] Phone Care Team Providers Care Environmental Air Specialist Name Role Phone Brandi Tillman MD Primary Care Provider Brandi Tillman MD Primary Care Provider Brandi Tillman MD Primary Care Provider Brandi Tillman MD Primary Care Provider Million, Rosa VAUGHN Primary Care Provider [phone] Brandi Tillman MD Primary Care Provider Million, Rosa VAUGHN Primary Care Provider [phone] Brandi Tillman MD Primary Care Provider Million, Rosa VAUGHN Primary Care Provider [phone] Brandi Tillman MD Primary Care Provider Million, Rosa VAUGHN Primary Care Provider [phone] Brandi Tillman MD Primary Care Provider Unknown, Notinfile Primary Care Provider Unavail able Brandi Tillman MD Unavailable +[phone] Romelia Martinez RN Unavailable Unavailab Agatha Carl RN Unavailable + [phone] Isaura Bowie RN Unavailable [phone] Brandi Tillman MD Primary Care Provider NinaMarbella veloz Unavailable [phone] Agatha Smith MD Primary Care Provider Lionel Santo MD Unavailable Jaime Sampson MD Unavailable +[phone] Miguel Fall MD Unavailable [phone] No, Physician Primary Care Provider [phone] Ej Madden MD Primary Care Provi rama Benitez Solano OT Unavailable Unavailable Carlos Magana MD Unavailable [phone] Encounter Details Date Type Department Care Team (Latest Contact Info) Description 06/27/2002 Orders Only [facility] EML Scanning, Provider Social History Tobacco Use Types Packs/Day Years Used Date Smoking Tobacco: Never Assessed Comments Unknown Sex and Gender Information Value Date Recorded Sex Assigned at Not on file 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 Gender Identity Not on file Sexual Orientation [...] on filedocumented in this encounter Care Teams Environmental Air Specialist Relationship Specialty Start Date End Date [...] Medicine 01/01/19 02/12/22 Agatha Smith MD [address] [facility] [address] [place], [place] [id number] PCP - General Family Practice 02/13/22 12/13/23 No, Physician PCP - General 12/14/23 01/27/24 Ej Madden MD [address] [address] PCP - General Family Practice 01/28/24 Brandi Tillman MD Internal Medicine 09/16/18 02/12/22 Romelia Martinez, SMITHA Registered Nurse Pain Management 05/22/17 Agatha Orozco, SMITHA [address] [place], [place] [id number] Twisting Frame Operator 12/26/18 06/13/20 Isaura Bowie, RN [address] [place], [place] [id number] Secondary Liver Coordinator 12/26/18 06/13/20 Marbella Wood DO [address] [facility] [address] [place], [place] [phone] Consulting Physician Endocrinology Diabetes & Metabolism 06/07/20 Lionel Satno MD [address] [place] [address] Referring Physician Geriatric Psychiatry 02/13/22 Jaime Sampson MD [address] [facility] [address] [place] [address] Referring Physician Transplant Hepatology 02/13/22 Miguel Fall MD [address] [facility] [address] [place] [address] Consulting Physician Physical Medicine and Rehabilitation 02/13/22 Benitez Solano, OT Occupational Therapist Occupational Therapy 08/20/24 Carols Magana MD [address] [place] [address] Surgeon Orthopedic Surgery 08/22/24 documented as of this encounter
--- OUTSIDE RECORDS SUMMARY | 2024-10-11 21:31 | XMS_ITS | Encounter Summary ---
Author Organization [facility] Address [address] [place] [address] Phone Care Team Providers Care Auditor Name Role Phone Brandi Tillman MD Primary Care Provider Brandi Tillman MD Primary Care Provider Brandi Tillman MD Primary Care Provider Brandi Tillman MD Primary Care Provider Million, Rosa VAUGHN Primary Care Provider [phone] Brandi Tillman MD Primary Care Provider Million, Rosa VAUGHN Primary Care Provider [phone]- [phone] Brandi Tillman MD Primary Care Provider Million, Rosa VAUGHN Primary Care Provider [phone] Brandi Tillman MD Primary Care Provider Million, Rosa VAUGHN Primary Care Provider [phone] Brandi Tillman MD Primary Care Provider Unknown, Notinfile Primary Care Provider Unavail able Brandi Tillman MD Unavailable +[phone] Romelia Martinez RN Unavailable Unavailab Agatha Carl RN Unavailable + [phone] Isaura Bowie RN Unavailable [phone] Brandi Tillman MD Primary Care Provider Nina Marbella Cheung Unavailable +[phone] Agatha Smith MD Primary Care Provider Lionel Santo MD Unavailable Jaime Sampson MD Unavailable [phone] Miguel Fall MD Unavailable [phone] No, Physician Primary Care Provider Ej Madden MD Primary Care Provi rama Benitez Solano OT Unavailable Unavailable Carlos Magana MD Unavailable [phone] Encounter Details Date Type Department Care Team (Latest Contact Info) Description 01/05/2010 Orders Only [facility] EML Scanning, Provider Social History Tobacco Use Types Packs/Day Years Used Date Smoking Tobacco: Never Assessed Comments Unknown Sex and Gender Information Value Date Recorded Sex Assigned at Not on file 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 Gender Identity Not on file Sexual Orientation [...] on filedocumented in this encounter Care Teams Auditor Relationship Specialty Start Date End Date Brandi [...] Medicine 01/01/19 02/12/22 Agatha Smith MD [address] [facility] [address] [place], [place] [phone] PCP - General Family Practice 02/13/22 12/13/23 No, Physician PCP - General 12/14/23 01/27/24 Ej Madden MD [address] [address] PCP - General Family Practice 01/28/24 Brandi Tillman MD Internal Medicine 09/16/18 02/12/22 Romelia Martinez, SMITHA Registered Nurse Pain Management 05/22/17 Agatha Orozco, SMITHA [address] [place], [place] [id number] Broom Stitcher 12/26/18 06/13/20 Isaura Bowie, RN [address] [place], [place] [phone] Secondary Liver Coordinator 12/26/18 06/13/20 Marbella Wood DO [address] [facility] [address] [place], [place] [phone] Consulting Physician Endocrinology Diabetes & Metabolism 06/07/20 Lionel Santo MD [address] [place] [address] Referring Physician Geriatric Psychiatry 02/13/22 Jaime Sampson MD [address] [facility] [address] [place] [address] Referring Physician Transplant Hepatology 02/13/22 Miguel Fall MD [address] [facility] [address] [place] [address] Consulting Physician Physical Medicine and Rehabilitation 02/13/22 Benitez Solano, OT Occupational Therapist Occupational Therapy 08/20/24 Carlos Magana MD [address] [place] [address] Surgeon Orthopedic Surgery 08/22/24 documented as of this encounter
[2024-10-11] MEDS: HYDROcodone/acetaminophen (*CRX) 5-325 MG TABLET 1 TAB PO (22:10)
[2024-10-11 22:11] VITALS: BP 130/72; PULSE 95; RESP 13; O2SAT 98
[2024-10-11] MEDS: TETANUS,DIPHTHERIA,AC PERTUSSIS ADULT (0.5 ML) BOOSTRIX IM (22:11)
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
[2024-10-12 00:14] VITALS: BP 126/79; PULSE 88; RESP 16; O2SAT 100
== END 2024-10-12 00:17 | disposition home or self-care (01) ==
PROVIDERS: Emergency Provider Physician Assistant; PCP Family Medicine
DX: S01.01XA Laceration without foreign body of scalp, initial encounter (principal); S61.210A Laceration without foreign body of right index finger without damage to nail, initial encounter; Z23 Encounter for immunization; E03.9 Hypothyroidism, unspecified; M81.0 Age-related osteoporosis without current pathological fracture; M79.7 Fibromyalgia; F41.9 Anxiety disorder, unspecified; F32.A Depression, unspecified; J81.1 Chronic pulmonary edema; W01.0XXA Fall on same level from slipping, tripping and stumbling without subsequent striking against object, initial encounter; Z79.82 Long term (current) use of aspirin; Z79.899 Other long term (current) drug therapy
CPT/HCPCS: 12005; 70450; 72125; 72128; 90471; 90715; 99284; A9270; J2003

== ENCOUNTER 2024-10-18 11:18 | Emergency (ER) | payer MEDICARE, BC, SELFPAY ==
--- OUTSIDE RECORDS SUMMARY | 2014-03-16 03:45 | XMS_ITS | Continuity of Care Document ---
Author Organization [employer] [facility] [address] [facility] [place] Address [address] [facility] [address] [place] [address] Phone Care Team Providers Care Plumbing Technician Name Role Phone Miguel Rivera MD, MD Unavailable Unavailab le Allergies, Adverse Reactions, Alerts Substance Reaction Status Criticality Sulfa (Sulfonamide Antibiotics) Active No Information Medications Medication Instructions Dosage Effective Dates (start - stop) Status Comments Vitamin D3 5,000 unit tablet as needed - Active WELLBUTRIN (unknown strength) take 1 tablet by oral route 2 times every day Not Available - Active Viibryd 40 mg tablet take 1 tablet by oral route every day with food 40 MG - Active Adderall 10 mg tablet take 1 tablet by oral route every day before breakfast 10 MG - Active lorazepam 1 mg tablet take 1 tablet by oral route 3 times every day as needed 1 MG - Active clonazepam 0.5 mg tablet take 1 tablet by oral route 3 times every day 0.5 MG - Active Synthroid 88 mcg tablet take 1 tablet by oral route every day 88 MCG - Active liothyronine 5 mcg tablet take 1 tablet by oral route every day 5 MCG - Active Super B Complex + C 150 mg tablet - Active Vitamin D3 2,000 unit capsule - Active Glucosamine 500 mg tablet - Active Procedures Procedure Date Remove Cataract, Insert Lens IOLMaster-Professional Remove Cataract, Insert Lens IOLMaster-Professional Office/outpatient Visit, [facility] Advance Directives Directive Yes / No Effective Date File Name No Information Encounters Encounter Description Practice Location Reason(s) For Visit Diagnoses Date Provider Providers Copied on Encounter [facility], [address] [place] [address] [address], [place], [place], [id number], [phone] [facility] [place] No Information 5 Miguel Rivera. [address], [address] [place] [address], [facility], . tel:[phone] Referring Provider: Faiza Kline, [address], [facility]. tel:[phone] 4928 [facility], [address] [place] [address] [address], [place], [place], [id number], tel:[phone] [facility] [place] [address] [place] No Information 5 Miguel Rivera. [address], [address] [place] [address], [facility], . tel:[phone] Referring Provider: Faiza Kline, [address], [facility]. tel:[phone] 2337 [facility], [address] [place] [address] [address], [place], [place], [id number], tel:[phone] [facility] [place] No Information 4 Miguel Rivera. [address], [address], [facility], . tel:[phone] Referring Provider: Faiza Kline, [address], [address]. tel:[phone] 0306 [facility], [address] [place] [address] [address], [place], [place], [id number], tel:[phone] [facility] [place] No Information 4 Miguel Rivera. [address], [address] [place] [address], [facility], [place]. tel:[phone] Referring Provider: Faiza Kline, [address], [address]. tel:[phone] Office/outpa tient Visit, [facility], [address] [facility] [address], [place], [place], [id number], tel:[phone] SEC [place] Cataract Evaluation (chief complaint) Fuchs dystrophyAge -related post subcapsular cataract Dec-0 3201 4 Miguel Rivera. [address] [facility], [address], [place], [address], [place]. tel:[phone] Referring Provider: Faiza Kline, [address], [address]. tel:[phone] [facility], [address] [facility] [address], [place], [place], [id number], tel:[phone] SEC [place] No Information Dec-0 2201 4 Mela Ramirez. [address] [address], [address], [place], [place], [id number], . tel:[phone] Family History Family Member Type Diagnosis Age At Onset No Information Payers Payer name Insurance type Covered libertarian ID Authoriza tion(s) [place] [id number] [place] BL [id number] Social History Type Description Quantity Date Captured Comments Sex Female Smoking Status No Information Chief Complaint And Reason For Visit No Information Reason For Referral Reason For Referral No Information History Of Present Illness Encounter Date Complaint History Of Prese nt Illness Cataract Evaluation The 68 year old female presents for Cataract Evaluation. Patient was going to get rotator cuff surgery. Dr. Montero told her that she needed to get cataract surgery before she got the rotator cuff surgery. Patient states that she is very nervous to get cataract surgery.Patient taking refresh optive advanced QD OS. Functional Status Date Functional Assessmen t No Information Instructions Date Instruction Additional Infor mation Age-related post sub capsular cataract - Surgery advised; risks, benefits, alternatives discussed. Related to Age-related post subcapsular cataract Dec-03-2014 - Cataracts diagnosi s discussed with pt in detail. Discussed all risks, benefits, procedure and recovery regarding cataract sx. Patient desires to have surgery, recommend phacoemulsification with intraocular lens. Lifestyle lens options discussed. RTC as scheduled. Schedule CE OD first - WF. Pt requests 2nd eye done after March 03. Related to See list of assessments above Assessments Type Assessment Date No Information Patient Care Teams Name Effective Dates (start - stop) Status Members No Information
--- OUTSIDE RECORDS SUMMARY | 2024-10-16 07:40 | XMS_ITS | Encounter Summary ---
Author Organization [facility] Address [address] [place] [address] Care Team Providers Care Picking Table Worker Name Role Phone Romelia Martinez RN Unavailable Unavailab Marbella Chen DO Unavailable Lionel Santo MD Unavailable Jaime Sampson MD Unavailable [phone] Miguel Fall MD Unavailable [phone] Ej Madden MD Primary Care Provi rama Benitez Solano OT Unavailable Unavailable Carlos Magana MD Unavailable [phone] Reason for Visit * Diagnostic Imaging (Routine) - Pending Review Specialty Diagnoses / Procedures Referred By Contac t Referred To Contact Diagnoses Aftercare following right hip joint replacement surgery Procedures XR Hip Left 2+ Vw XR Hip Right 2 or 3 Views Carlos Magana MD [address] [place] [address] [address] Phone: tel: Referral ID Status Reason Start Date Expiration Date V isits Requested Visits Authorized [id number] Pending Review 10/16/2024 11/15/2025 1 1 Encounter Details Date Type Department Care Team (Latest Contact Info) Description 10/16/2024 7:40 AM CDT - 10/16/2024 11:59 PM CDT Hospital Encounter [facility] [address] [address] Arrived Discharge Disposition: Discharge to home or self care Social History Tobacco Use Types Packs/Day Years [...] on file 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 Gender Identity Not on file Sexual Orientation Not on file documented as of this encounter Medications at Time of Discharge aspirin 81 mg enteric coated tablet Take 1 tablet (81 mg total) by mouth 2 (two) times a day 84 tablet 08/22/2024 atorvastatin (LIPITOR) 40 mg tablet Take 1 tablet (40 mg total) by mouth daily 90 tablet 1 06/03/2024 buPROPion XL (WELLBUTRIN XL) 150 mg 24 hr tablet Take 3 tablets (450 mg total) by mouth daily 02/02/2022 cholecalciferol (VITAMIN D-3) 2,000 unit tablet take 1 and 1/2 tablets daily to = 3000 units daily in the am 09/28/2008 dextroamphetamine -amphetamine XR (ADDERALL XR) 30 mg 24 hr capsule Take 1 capsule (30 mg total) by mouth every morning 11/07/2022 ergocalciferol (VITAMIN D) 50,000 unit capsule Take 1 capsule (50,000 Units total) by mouth every 30 (thirty) days 12 capsule 08/25/2024 glucosam-chondroi tin-diet cb25 116-100 mg capsule Take 2 tablets by mouth glass melt operator before breakfast lamoTRIgine XR (LaMICtal XR) 100 mg tablet extended release 24hr Take 1 tablet (100 mg total) by mouth daily 07/30/2024 lamoTRIgine XR (LaMICtal XR) 50 mg tablet extended release 24hr Take 3 tablets (150 mg total) by mouth daily 05/15/2024 liothyronine (CYTOMEL) 5 mcg tablet TAKE 1 TABLET TWICE A DAY 180 tablet 1 10/13/2024 LORazepam (ATIVAN) 1 mg tablet Take 1 tablet (1 mg total) by mouth every 6 hours as needed for anxiety magnesium gluconate 200 mg tabletIndications :hypomagnesemia Take 1 tablet (200 mg total) by mouth glass melt operator before breakfast multivitamin tablet tablet take 1 tablet by oral route every day with food 0 0 10/24/2012 ondansetron (ZOFRAN) 8 mg tabletIndications :Prevention of Post-Operative Nausea and Vomiting Take 1 tablet (8 mg total) by mouth every 8 (eight) hours as needed for nausea or vomiting 20 tablet 2 08/22/2024 oxyCODONE-acetami nophen (PERCOCET) 5-325 mg per tablet Take 1-2 tablets by mouth every 4 (four) hours as needed for pain 40 tablet 09/23/2024 pen needle, diabetic (Unifine Pentips) 32 gauge x /32 needle Use to inject forteo daily 90 each 1 07/09/2024 QUEtiapine (SEROquel) 50 mg tablet Take 2 tablets (100 mg total) by mouth nightly Take 2 nightly 02/24/2023 senna-docusate (PERICOLACE) 8.6-50 mg Take 1 tablet by mouth 2 (two) times a day as needed for constipation 60 tablet 2 08/22/2024 Synthroid 100 mcg tabletIndications :Hypothyroidism, unspecified type TAKE 1 TABLET DAILY 90 tablet 1 09/01/2024 teriparatide (Forteo) 20 mcg/dose (560mcg/2.24mL) injection Inject 0.08 mL (20 mcg total) under the skin daily 7.2 mL 1 07/09/2024 UNABLE TO FIND THERACURMIN 120mg Viibryd 20 mg tablet Take 1 tablet (20 mg total) by mouth daily 10/20/2023 Viibryd 40 mg tablet Take 1 tablet (40 mg total) by mouth daily with breakfast 04/25/2024 documented as of this encounter Discharge Disposition Disposition Code Departure Means Destination Discharge to home or self care documented in this encounter Plan of Treatment Not on file documented as of this encounter Goals Goal Patient Goal Type Associated Problems Recent Progress Patient-Stated? Author [facility] No Romelia Martinez, SMITHA Note: For pain to be maintained at a tolerable level for I can be more active, Autogenerated Goal Care Plan Autogenerated Problem No Vernell Lund MA documented as of this encounter Procedures Procedure Name Priority Date/Time Associated Diagnosis Comments XR HIP LEFT 2 OR 3 VIEWS Schedule Routine, Read Routine (OP Routine) 10/16/2024 9:17 AM CDT Aftercare following right hip joint replacement surgery documented in this encounter Results * XR Hip Left 2+ Vw (10/16/2024 9:17 AM CDT) Anatomical Region Laterality Modality Lower Extremities, Hip, Pelvis Left D igital Radiography Narrative 10/17/2024 12:56 PM CDT No obvious abnormality of the left hip. There is mild degenerative change. Right total hip arthroplasty in appropriate position with no interval change. us Carlos Magana MD IMG XR PROCEDURES Final Result documented in this encounter Visit Diagnoses Not on filedocumented in this encounter Additional Health Concerns Active Problems Noted Date Diagnosed Date Autogenerated Problem 08/23/2024 documented as of this encounter Care Teams Picking Table Worker Relationship Specialty Start Date End Date Ej Madden MD [address] [facility] [address] [place] [address] PCP - General Family Practice 01/28/24 Romelia Martinez, RN Registered Nurse Pain Management 05/22/17 Marbella Wood DO [address] [facility] [address] [place] [address] Consulting Physician Endocrinology Diabetes & Metabolism 06/07/20 Lionel Santo MD [address] [place] [address] Referring Physician Geriatric Psychiatry 02/13/22 Jaime Sampson MD [address] [facility] [address] [place] [address] Referring Physician Transplant Hepatology 02/13/22 Miguel Fall MD [address] [facility] [address] [place] [address] Consulting Physician Physical Medicine and Rehabilitation 02/13/22 Benitez Solano, OT Occupational Therapist Occupational Therapy 08/20/24 Carlos Magana MD [address] [place] [address] [address] [place] [address] Surgeon Orthopedic Surgery 08/22/24 documented as of this encounter
--- OUTSIDE RECORDS SUMMARY | 2024-10-18 11:20 | XMS_ITS | Encounter Summary ---
Author Organization [facility] Address [address] [place] [address] Phone Care Team Providers Care Physiotherapist'S Assistant Name Role Phone Brandi Tillman MD Primary Care Provider Brandi Tillman MD Primary Care Provider Brandi Tillman MD Primary Care Provider Brandi Tillman MD Primary Care Provider Million, Rosa VAUGHN Primary Care Provider [phone] Brandi Tillman MD Primary Care Provider Million, Rosa VAUGHN Primary Care Provider [phone] Brandi Tillman MD Primary Care Provider Million, Rosa VAUGHN Primary Care Provider [phone] Brandi Tillman MD Primary Care Provider Million, Rosa VAUGHN Primary Care Provider [phone] Brandi Tillman MD Primary Care Provider Unknown, Notinfile Primary Care Provider Unavail able Brandi Tillman MD Unavailable [phone] Romelia Martinez RN Unavailable Unavailab Agatha Carl RN Unavailable [phone] Isaura Bowie RN Unavailable [phone] Brandi Tillman MD Primary Care Provider NinaMarbella veloz Unavailable [phone] Agatha Smith MD Primary Care Provider Lionel Santo MD Unavailable Jaime Sampson MD Unavailable [phone] Miguel Fall MD Unavailable [phone] No, Physician Primary Care Provider Ej Madden MD Primary Care Provi rama Benitez Solano OT Unavailable Unavailable Carlos Magana MD Unavailable [phone] Encounter Details Date Type Department Care Team (Latest Contact Info) Description 12/06/2007 Orders Only [facility] Scanning, Provider Social History Tobacco Use Types Packs/Day Years Used Date Smoking Tobacco: Never Assessed Comments Unknown Sex and Gender Information Value Date Recorded Sex Assigned at Not on file 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 Gender Identity Not on file Sexual [...] on filedocumented in this encounter Care Teams Physiotherapist'S Assistant Relationship Specialty Start Date End Date [...] Medicine 01/01/19 02/12/22 Agatha Smith MD [address] [facility] [address] [place], [place] [id number] PCP - General Family Practice 02/13/22 12/13/23 No, Physician PCP - General 12/14/23 01/27/24 Ej Madden MD [address] [address] PCP - General Family Practice 01/28/24 Brandi Tillman MD Internal Medicine 09/16/18 02/12/22 Romelia Martinez, SMITHA Registered Nurse Pain Management 05/22/17 Agatha Orozco, SMITHA [address] [place], [place] [id number] Special Class Welder 12/26/18 06/13/20 Isaura Bowie, RN [address] [place], [place] [id number] Secondary Liver Coordinator 12/26/18 06/13/20 Marbella Wood DO [address] [facility] [address] [place], [place] [id number] Consulting Physician Endocrinology Diabetes & Metabolism 06/07/20 Lionel Santo MD [address] [place] [address] Referring Physician Geriatric Psychiatry 02/13/22 Jaime Sampson MD [address] [facility] [address] [address] [place] [address] Referring Physician Transplant Hepatology 02/13/22 Miguel Fall MD [address] [facility] [address] [place] [address] Consulting Physician Physical Medicine and Rehabilitation 02/13/22 Benitez Solano, OT Occupational Therapist Occupational Therapy 08/20/24 Carlos Magana MD [address] [place] [address] Surgeon Orthopedic Surgery 08/22/24 documented as of this encounter
--- OUTSIDE RECORDS SUMMARY | 2024-10-18 11:20 | XMS_ITS | Encounter Summary ---
Author Organization [facility] Address [address] [place] [address] Phone Care Team Providers Care Margin Clerk Name Role Phone Brandi Tillman MD Primary Care Provider Brandi Tillman MD Primary Care Provider Brandi Tillman MD Primary Care Provider Brandi Tillman MD Primary Care Provider Million, Rosa VAUGHN Primary Care Provider [phone] Brandi Tillman MD Primary Care Provider Million, Rosa VAUGHN Primary Care Provider [phone] Brandi Tillman MD Primary Care Provider Million, Rosa VAUGHN Primary Care Provider [phone] Brandi Tillman MD Primary Care Provider Million, Rosa VAUGHN Primary Care Provider [phone] Brandi Tillman MD Primary Care Provider Unknown, Notinfile Primary Care Provider Unavail able Brandi Tillman MD Unavailable [phone] Romelia Martinez RN Unavailable Unavailab Agatha Carl RN Unavailable + [phone] Isaura Bowie RN Unavailable [phone] Brandi Tillman MD Primary Care Provider NinaMarbella veloz Unavailable [phone] Agatha Smith MD Primary Care Provider Lionel Santo MD Unavailable Jaime Sampson MD Unavailable [phone] Miguel Fall MD Unavailable [phone] No, Physician Primary Care Provider Ej Madden MD Primary Care Provi rama Benitez Solano OT Unavailable Unavailable Carlos Magana MD Unavailable [phone] Encounter Details Date Type Department Care Team (Latest Contact Info) Description 09/21/2004 Orders Only [facility] Scanning, Provider Social History Tobacco Use Types Packs/Day Years Used Date Smoking Tobacco: Never Assessed Comments Unknown Sex and Gender Information Value Date Recorded Sex Assigned at Not on file 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 Gender Identity Not on file Sexual Orientation [...] on filedocumented in this encounter Care Teams Margin Clerk Relationship Specialty Start Date End Date Brandi [...] Medicine 01/01/19 02/12/22 Agatha Smith MD [address] [facility] [address] [place], [place] [id number] PCP - General Family Practice 02/13/22 12/13/23 No, Physician PCP - General 12/14/23 01/27/24 Ej Madden MD [address] [address] PCP - General Family Practice 01/28/24 Brandi Tillman MD Internal Medicine 09/16/18 02/12/22 Romelia Martinez, SMITHA Registered Nurse Pain Management 05/22/17 Agatha Orozco, SMITHA [address] [place], [place] [id number] Color Matcher 12/26/18 06/13/20 Isaura Bowie, RN [address] [place], [place] [id number] Secondary Liver Coordinator 12/26/18 06/13/20 Marbella Wood DO [address] [facility] [address] [place], [place] [id number] Consulting Physician Endocrinology Diabetes & Metabolism 06/07/20 Lionel Santo MD [address] [place] [address] Referring Physician Geriatric Psychiatry 02/13/22 Jaime Sampson MD [address] [facility] [address] [place] [address] Referring Physician Transplant Hepatology 02/13/22 Miguel Fall MD [address] [facility] [address] [place] [address] Consulting Physician Physical Medicine and Rehabilitation 02/13/22 Benitez Solano, OT Occupational Therapist Occupational Therapy 08/20/24 Carlos Magana MD [address] [place] [address] Surgeon Orthopedic Surgery 08/22/24 documented as of this encounter
--- OUTSIDE RECORDS SUMMARY | 2024-10-18 11:20 | XMS_ITS | Encounter Summary ---
Author Organization [facility] Address [address] [place] [address] Care Team Providers Care Staff Counselor Name Role Phone Brandi Tillman MD Unavailable [phone] Romelia Martinez RN Unavailable Unavailab Brandi Downs MD Primary Care Provider Marbella Wood DO Unavailable [phone] Agatha Smith MD Primary Care Provider Lionel Santo MD Unavailable [phone] Jaime Sampson MD Unavailable [phone] Miguel Fall MD Unavailable [phone] No, Physician Primary Care Provider [phone] Ej Madden MD Primary Care Provi rama Benitez Solano OT Unavailable Unavailable Carlos Magana MD Unavailable [phone] Encounter Details Date Type Department Care Team (Late st Contact Info) Description 03/30/2021 Telephone [facility] [address] [place] [address] Sarai Macias, RT Social History [...] on file 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 [address] [place] [address] PCP - General Family Practice 02/13/22 12/13/23 No, Physician PCP - General 12/14/23 01/27/24 Ej Madden MD [address] [address] PCP - General Family Practice 01/28/24 Brandi Tillman MD Internal Medicine 09/16/18 02/12/22 Romelia Martinez, RN Registered Nurse Pain Management 05/22/17 Marbella Wood DO [address] [place] [address] Consulting Physician Endocrinology Diabetes & Metabolism 06/07/20 Lionel Santo MD [address] [place] [address] Referring Physician Geriatric Psychiatry 02/13/22 Jaime Sampson MD [address] [facility] [address] [place] [address] Referring Physician Transplant Hepatology 02/13/22 Miguel Fall MD [address] [facility] [address] [place] [address] Consulting Physician Physical Medicine and Rehabilitation 02/13/22 Benitez Solano OT Occupational Therapist Occupational Therapy 08/20/24 Carlos Magana MD [address] [place] [address] [address] [place] [address] [place] [address] Surgeon Orthopedic Surgery 08/22/24 documented as of this encounter
--- OUTSIDE RECORDS SUMMARY | 2024-10-18 11:20 | XMS_ITS | Clinical Summary ---
Author Organization [facility] Address [address] [place] [address] Care Team Providers Care Manager Of Pharmacy Name Role Phone Romelia Martinez RN Unavailable Unavailab Marbella Chen DO Unavailable [phone] Lionel Santo MD Unavailable Jaime Sampson MD Unavailable Miguel Fall MD Unavailable Ej Madden MD [...] 6 hours as needed for anxiety Active cholecalcifero l (VITAMIN D-3) 2,000 unit tablet take 1 and 1/2 tablets daily to = 3000 units daily in the am 09/29/19 09 Active buPROPion XL (WELLBUTRIN XL) 150 mg 24 hr tablet Take 3 tablets (450 mg total) by mouth daily 02/03/20 22 Active UNABLE TO FIND THERACURMIN 120mg Active dextroamphetam ine-amphetamin e XR (ADDERALL XR) 30 mg 24 hr capsule Take 1 capsule (30 mg total) by mouth every morning 11/08/19 23 Active QUEtiapine (SEROquel) 50 mg tablet Take 2 tablets (100 mg total) by mouth nightly Take 2 nightly 02/25/20 23 Active Viibryd 20 mg tablet Take 1 tablet (20 mg total) by mouth daily 10/20/19 24 Active atorvastatin (LIPITOR) 40 mg tablet Take 1 tablet (40 mg total) by mouth daily 90 tablet 1 06/04/19 25 2025 Active Viibryd 40 mg tablet Take 1 tablet (40 mg total) by mouth daily with breakfast 04/25/19 25 Active lamoTRIgine XR (LaMICtal XR) 50 mg tablet extended release 24hr Take 3 tablets (150 mg total) by mouth daily 05/16/19 25 Active magnesium gluconate 200 mg tabletIndicati ons:hypomagnes emia Take 1 tablet (200 mg total) by mouth early morning babysitter before breakfast Active glucosam-chond roitin-diet cb25 116-100 mg capsule Take 2 tablets by mouth early morning babysitter before breakfast Active teriparatide (Forteo) 20 mcg/dose (560mcg/2.24mL ) injection Inject 0.08 mL (20 mcg total) [...] 08/23/19 25 Active ondansetron (ZOFRAN) 8 mg tabletIndicati ons:Prevention of Post-Operative Nausea and Vomiting Take 1 tablet (8 mg total) by mouth every 8 (eight) hours as needed for nausea or vomiting 20 tablet 2 08/23/19 25 Active Additional Information Patient not taking.Reported on 10/16/2024 senna-docusate (PERICOLACE) 8.6-50 mg Take 1 tablet by mouth 2 (two) times a day as needed for constipation 60 tablet 2 08/23/19 25 Active Additional Information Patient not taking.Reported on 10/16/2024 ergocalciferol (VITAMIN D) 50,000 unit capsule Take 1 capsule (50,000 Units total) by mouth every 30 (thirty) days 12 capsule 08/26/19 25 2025 Active Synthroid 100 mcg tabletIndicati ons:Hypothyroi dism, unspecified type TAKE 1 TABLET DAILY 90 tablet 1 09/02/19 25 Active oxyCODONE-acet aminophen (PERCOCET) 5-325 mg per tablet Take 1-2 tablets by mouth every 4 (four) hours as needed for pain 40 tablet 09/24/19 25 Active Additional Information Patient not taking.Reported on 10/16/2024 liothyronine (CYTOMEL) 5 mcg tablet TAKE 1 TABLET TWICE A DAY 180 tablet 1 10/14/19 25 Active liothyronine (CYTOMEL) 5 mcg tablet TAKE 1 TABLET TWICE A DAY 180 tablet 1 05/20/19 25 2024 Discontinued ferrous sulfate 325 mg (65 mg of elemental iron) tabletIndicati ons:Iron Deficiency Anemia Take 1 tablet (325 mg total) by mouth daily with breakfast 30 tablet 08/23/19 25 2024 ascorbic acid, vitamin C, 500 mg capsule Take 500 mg by mouth daily 30 capsule 08/23/19 25 2024 oxyCODONE-acet aminophen (PERCOCET) 5-325 mg per tablet Take 1-2 tablets by mouth every 4 (four) hours as needed for pain 40 tablet 09/02/19 25 2024 Discontinued(R eorder) Active Problems Problem Noted Date Diagnosed Date Primary osteoarthritis of right hip 08/13/2024 Preoperative evaluation to lilly carlsone out surgical contraindication 08/06/2024 Assessment & Plan [...] placed Assessment & Plan (03/30/2023 1:26 PM DADO OPERATOR): Chronic. Struggles with symptoms. Keep appointment with wind farm support specialist for further evaluation Hallux rigidus of [...] mg Assessment & Plan (03/30/2023 1:26 PM DADO OPERATOR): Chronic. Noted on prior imaging. Patient has [...] nontreatment Assessment & Plan (03/30/2023 1:26 PM DADO OPERATOR): Chronic. Patient still declines use of cholesterol medication Cystic disease of liver 01/01/2019 Assessment & Plan (04/24/2024 6:22 PM DADO OPERATOR): Stable and without symptoms. In the absence of right upper quadrant discomfort, I am not convinced she needs to return in follow-up. Imaging should only be performed if she has right upper quadrant symptomatology. She will return in 1 year or when clinically indicated. Assessment & Plan (04/19/2023 6:50 PM DADO OPERATOR): Unchanged with stable radiographic findings from January,, to January,. In the absence of right upper quadrant discomfort, I am not convinced additional imaging is needed for the near future. She will follow-up on an annual basis or when clinically indicated. Assessment & Plan (04/10/2022 5:59 PM DADO OPERATOR): Unchanged on relatively recent imaging studies. Routinely, [...] evaluation. 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 I will continue to follow the lesions with annual MRI. No intervention in the absence of significant increase in size of the lesions. She will return in one year or when clinically indicated. Assessment & Plan (01/01/2019 9:47 AM DADO OPERATOR): The change in appearance of the cyst [...] consult Assessment & Plan (04/19/2023 6:51 PM DADO OPERATOR): I will make a referral to Orthopedic surgery so she may obtain a second opinion. Assessment & Plan (03/30/2023 1:26 PM DADO OPERATOR): Chronic. Struggles with her back. Keep upcoming [...] length Assessment & Plan (03/30/2023 1:27 PM DADO OPERATOR): Chronic. Previously noted. Patient has declined cholesterol [...] holiday. Assessment & Plan (02/04/2018 8:46 AM DADO OPERATOR): Stay on bisphosphonates, calcium and vitamin-D Follow-up bone density August 2018 History of tobacco use 02/07/2017 Rosacea 05/03/2015 Hypothyroidism 10/24/2012 Overview (02/04/2018): Hypothyroid- Assessment & Plan (05/31/2023 5:09 PM CDT): Chronic. Relatively euthyroid. Continue prescription Synthroid. Patient had recent health screening which showed a heterogeneous thyroid. This is unlikely to be of concern. Assessment & Plan (02/04/2018 8:44 AM DADO OPERATOR): She will be continued on the combination [...] Monitor Bipolar disorder with severe depression 09/29/19 Assessment & Plan (05/31/2023 5:10 PM CDT): [...] instead Assessment & Plan (03/30/2023 1:26 PM DADO OPERATOR): Chronic. Stable. Continue medication and care per Psychiatry Resolved Problems Problem Noted Date Diagnosed Date Resolved Date Screening for colon cancer 06/07/2022 1 Overview (06/07/2022): Added automatically from request for surgery [id number] Special screening for malign ant neoplasms, colon 03/22/2022 05/22/2022 Overview (03/22/2022): Added automatically from request for surgery [id number] Fatigue 03/22/2022 11/29/2022 Overview (03/22/2022): Added automatically from request for surgery [id number] Weight loss, unintentional 03/22/2022 0 05/22/2022 Overview (03/22/2022): Added automatically from request for surgery [id number] Spells of decreased attentiveness 03/02/2022 01/28/2024 Severe episode of recurrent major depressive disorder, without psychotic features 12/03/2019 Renal mass 09/16/2018 02/13/2022 Overview (09/16/2018): Added automatically from request for surgery [id number] Pain of foot 05/03/2016 02/13/2022 Ankle pain [...] Encounters Date Type Department Care Team Description 5 9:45 AM CDT Office Visit [facility] Orthopedics and Sports Medicine [address] [place] [address] [address] [place] [address] Carlos Magana MD Aftercare following right hip joint replacement surgery (Primary Dx); History of scoliosis; Arthritis of lumbar spine 5 7:40 AM CDT - 5 11:59 PM CDT Hospital Encounter [facility] Orth[facility]ics and Sports Medicine [address] [place] [address] [address] [place] [address] Arrived Discharge Disposition: Discharge to home or self care 5 11:45 AM CDT Office Visit [facility] Gastroenterology at [address] [place] [address] Cristobal Osorio MD 5 Telephone [facility]ics and Sports Medicine [address] [place] [address] [address] [place] [address] Carlos Magana MD Post-op Problem 5 1:00 PM CDT Therapy [facility] [place] [address] Bryson Watters, PT S/P total right hip arthroplasty (Primary Dx) 5 1:00 PM CDT Therapy [facility] Physical Therapy [place] [address] [address] Mary Benton, PT S/P total right hip arthroplasty (Primary Dx) 5 1:00 PM CDT Therapy [facility] Physical Therapy [place] [address] [place] [address] Mary Benton, PT S/P total right hip arthroplasty (Primary Dx) 5 11:00 AM CDT Office Visit [facility] Orthopedics and Sports Medicine [address] [facility] [address] [place] [address] Kwan Chavez NP Aftercare following right hip joint replacement surgery (Primary Dx); Status post total hip replacement, right 5 10:38 AM CDT - 5 11:59 PM CDT Hospital Encounter [facility] Orthopedics and Sports Medicine [address] [place] [address] [address] [place] [phone] Discharge Disposition: Discharge to home or self care 5 Telephone [facility] Orthopedics and Sports Medicine [address] [place] [address] [address] [place] [phone] Carlos Magana MD Post-op; Med Management 5 2:15 PM CDT Therapy [facility] [place] [address] Mary Benton, PT S/P total right hip arthroplasty 5 Plan of Care Documentation [facility] [place] [address] 5 [facility] Post Discharge Follow up phone call [facility] Surgery Care 1 [place] [address] Toshia Kathleen 5 Telephone [facility] Orth[facility]ics and Sports Medicine 4 [facility] [address] [place] [phone] Anh Saldaña MA 5 Orders Only [facility] Orthopedics and Sports Medicine [address] [place] [address] [address] [place] [phone] Carlos Magana MD S/P total right hip arthroplasty (Primary Dx) 5 Telephone [facility] Medical Group Orthopedics and Sports Medicine [address] [facility] [address] [place] [phone] Carlos Magana MD post-op questions 5 8:45 AM CDT - 5 11:10 AM CDT Surgery [facility] Operating Room 1 [place] [address] Carlos Magana MD Right Total Hip Arthroplasty 5 8:33 AM CDT Anesthesia Event [facility] Operating Room 1 [place] [address] Jaime Menard DO Reynolds, Ethan Emerson, MD 5 6:49 AM CDT - 5 10:30 AM CDT Hospital Encounter [facility] Surgery Care 1 [place] [address] Carlos Magana MD Primary osteoarthritis of right hip (Primary Dx) Discharge Disposition: Discharge to home or self care 5 Results Follow-Up [facility] Medical Group Primary Care at [address] [address] Ej Madden MD Diagnostic Mammogram Right W Sergio 5 Results Follow-Up [facility] Primary Care at [address] [place] [phone] Ej Madden MD US Breast Right Limited 5 12:36 PM CDT - 5 11:59 PM CDT Hospital Encounter [facility] Imaging Center [address] [place] [address] Abnormal mammogram of right breast Discharge Disposition: Discharge to home or self care 5 12:30 PM CDT - 5 11:59 PM CDT Hospital Encounter [address] [address] Abnormal mammogram of right breast Discharge Disposition: Discharge to home or self care 5 Documentation [facility] Orthopedics and Sports Medicine [address] [facility] [address] [place] [address] Manda Agee MA Surgical Clearance 5 10:30 AM CDT Office Visit [facility] Medical [facility] Primary Care at [address] [place] [phone] Ej Madden MD Preoperative evaluation to rule out surgical contraindication (Primary Dx); Arthritis of right hip; Age-related osteoporosis without current pathological fracture 5 12:10 PM CDT Lab [address] [address] Pre-operative exam 5 12:08 PM CDT - 5 11:59 PM CDT Hospital Encounter [facility] Imaging Center 1 [place] [address] Pre-operative exam Discharge Disposition: Discharge to home or self care 5 12:05 PM CDT - 5 11:59 PM CDT Hospital Encounter [facility] Cardiology 1 [place] [address] Pre-operative exam Discharge Disposition: Discharge to home or self care 5 11:00 AM CDT Office Visit [facility] Medical [facility] Orthopedics and Sports Medicine [address] [place] [phone] Carlos Magana MD Pre-operative exam (Primary Dx); Primary osteoarthritis of right hip; Spinal stenosis, lumbar region, with neurogenic claudication 5 Documentation [facility] Medical [facility] Orthopedics and Sports Medicine [address] [place] [phone] Manda Agee MA surgery 5 Telephone [facility] Medical Group Primary Care at [address] [phone] Ej Madden MD Appointment Request 5 Telephone [facility] Medical Group Primary Care at [address] [place] [phone] Ej Madden MD Forms Request 5 Telephone [facility] Medical [facility] Orthopedics and Sports Medicine [address] [place] [address] Abril Duncan PA from Last 3 Months Immunizations Immunization Administration [...] on file Legal Sex Female 11:33 PM DADO OPERATOR Gender Identity Not on file Sexual Orientation Not on file Obstetrics History Para Term AB IAB SAB Ectopic Multiple Livin g Live Births 3 3 3 Date Outcome GA Total Labor Labor/2nd/3rd Weight Sex Type Anes PTL Mila A1 A5 Name Clin Term Term Term Last Filed Vital Signs Vital Sign Reading Time Taken Comments Blood Pressure 151/81 10/16/2024 9:32 AM CDT Pulse 60 10/16/2024 9:32 AM CDT Temperature 36.6 C (97.9 F) 08/23/2024 7:23 AM CDT Respiratory Rate 16 08/23/2024 7:23 AM CDT Oxygen Saturation 98% 10/14/2024 11: 08 AM CDT Inhaled Oxygen Concentration - - Weight 64.3 kg (141 lb 12.8 oz) 10/16/2024 9:32 AM CDT Height 161.9 cm (5' 3.75) 10/16/2024 9:32 AM CD T Body Mass Index 24.53 10/16/2024 9:32 AM CDT Plan of Treatment Health Maintenance Due Date Last Done Comments Hepatitis B Screening 10[birth year]20/1963 Zoster Vaccine (2 of 3) 02/19/2012 12/25/2011 Covid-19 Vaccine (2023-2 5 season) 2023 11/23/2022, 06/09/2021, 01/19/2021, Additional [...] Lund MA Medical Devices Implanted Type Area Cement Fittings Maker Device Identifier Shelf Expiration Date Model / Serial / Lot Costal Cartilage Implanted:Qty: 1 on 07/18/2018 by Jaime Barnard MD at [facility] Bone Nose [employer] 04/25/2023 / [id number] / Rt Total Shoulder Arthroplasty Right: Shoulder [employer] [place] 52mm Sector Hip Shell Acetabular Gription Sterile Latex Free [id number] - [id number] Implanted:Qty: 1 on 08/22/2024 by Carlos Magana MD at [facility] Right: Hip [employer] [id number] 05/26/2034 [id number] / / [id number] [employer] [place] 52mm 36mm Hip Neutral Liner Acetabular Altrx Sterile Latex Free [id number] - [id number] Implanted:Qty: 1 on 08/22/2024 by Carlos Magana MD at [facility] Right: Hip [employer] [id number] 04/25/2029 [id number] / / [id number] [employer] [place] 6.5mm 35mm Acetabular Cancellous Screw Bone Sterile 1217-35-500 - [id number] Implanted:Qty: 1 on 08/22/2024 by Carlos Magana MD at [facility] Right: Hip [employer] [id number] 03/28/2034 1217-35-500 / / [id number] [employer] Actis Collar Hip 7 High Offset Stem Femoral [id number] - [id number] Implanted:Qty: 1 on 08/22/2024 by Carlos Magana MD at [facility] Right: Hip [employer] [id number] 05/26/2034 [id number] / / [id number] [employer] Articul/Aditya 36mm Cementless Hip +1.5mm 12/14 Taper Head Femoral Latex Free [id number] - [id number] Implanted:Qty: 1 on 08/22/2024 by Carlos Magana MD at [facility] Right: Hip [employer] [id number] 03/28/2029 [id number] / / [id number] Procedures Procedure Name Priority Date/Time Associated Diagnosis Comments XR HIP LEFT 2 OR 3 VIEWS Schedule Routine, Read Routine (OP Routine) 10/16/2024 9:17 AM CDT Aftercare following right hip joint replacement surgery XR HIP RIGHT 2 OR 3 VIEWS [...] AM CDT Primary osteoarthritis of right hip NH AN ELECTIVE ENDOTRACHEAL AIRWAY Routine 08/22/2024 9:18 [...] Routine 07/29/2024 12:17 PM CDT Pre-operative exam SCREENING MAMMOGRAM BILATERAL W SERGIO Schedule Routine, [...] to Health Maintenance Results * XR Hip Left 2+ Vw (10/16/2024 9:17 AM CDT) Anatomical Region Laterality Modality Lower Extremities, Hip, Pelvis Left D igital Radiography Narrative 10/17/2024 12:56 PM CDT No obvious abnormality of the left hip. There is mild degenerative change. Right total hip arthroplasty in appropriate position with no interval change. us Carlos Magana MD IMG XR PROCEDURES Final Result * XR Hip Right 2 or 3 Views (09/15/2024 10:42 AM CDT) Anatomical Region Laterality Modality Lower Extremities, Hip, Pelvis Right D igital Radiography Narrative 09/15/2024 10:50 AM CDT X-rays of the right are reviewed and interpreted and demonstrate no acute fractures subluxations or osseous changes. Status post JASIEL changes noted with implants in acceptable position. Kwan Chavez NP IMG XR PROCEDURES Final Result * eGFR [...] LAB BLOOD ORDERABLES Final Result [facility] ([place]) [address] [facility] [place] [address] * (ABNORMAL) CBC without differential (08/23/2024 8:07 AM CDT) Pathologist [facility] WBC 5.66 3.80 - 9.90 K/cumm Hgb 9.7(L) 11.9 - 15.5 g/dL [facility] ([place]) Hct 29.5(L) 35.6 - 45.5 % [facility] ([place]) Plt 194 150 - 400 K/cumm [facility] ([place]) MPV 8.2(L) 9.1 - 12.3 [...] NRBC abs 0.00 0.00 - 0.01 K/cumm [facility] ([place]) Blood 08/23/2024 8:07 AM CDT 08/23/2024 8:12 AM CDT Cee VAUGHN LAB BLOOD ORDERABLES Final Result [facility] ([place]) [address] [facility] Department [place] [address] * (ABNORMAL) Basic metabolic panel (08/23/2024 8:07 AM CDT) Pathologist [facility] Sodium 137 135 - 145 mmol/L Potassium, pl 4.1 3.3 - 4.9 mmol/L [facility] ([place]) Chloride 101 97 - 110 mmol/L [facility] ([place]) CO2 23 22 - 32 mmol/L [facility] ([place]) Anion gap 13 2 - 15 mmol/L [facility] ([place]) BUN 14 6 - 25 mg/dL [facility] ([place]) Creatinine 0.65 0.60 - 1.10 mg/dL [facility] ([place]) Glucose 117 70 - 199 mg/dL [facility] ([place]) Comment: Interpretive Data Fasting glucose >/= 126 [...] classification and Diagnosis of Diabetes Diabetes Care 2021; 46: S19-S40. Current interpretive data was last revised 2022. Calcium 8.4(L) 8.5 - 10.3 mg/dL [facility] ([place]) Blood 08/23/2024 8:07 AM CDT 08/23/2024 8:12 AM CDT us Cee VAUGHN LAB BLOOD ORDERABLES Final Result [facility]) [address] [place] [address] [place] [address] * Surgical pathology (08/22/2024 1:25 PM CDT) Tissue (Bone Fragment(s),) 08/22/2024 9:47 AM CDT Narrative [facility] ([place]) - 08/27/2024 1:08 PM CDT EPIC results best viewed via link to PDF [facility] Department of Pathology [address] [place] [id number] Note to Patients: This report may contain [...] Final Report Patient Name: ABIMBOLA MARTINES Address: [address] [place] [address] Gender: F : 1945 (Age: 78) Service: Surgery Location: [facility] Hospital #: [id number] Patient Type: [facility] OP in bed Taken: 08/22/2024 Received: 08/22/2024 [...] is bisected revealing no subchondral gross lesions. Redeye Gunner sections are submitted in one cassette after decalcification. Messi Wylie R.N., P.A./Jeremy Patel M.D. REPORT IMAGES AND SCANNED DOCUMENTS, IF INCLUDED, ONLY VIEWABLE IN PDF VERSION OF REPORT The performance characteristics of some immunohistochemical stains, fluorescence in-situ hybridization tests and immunophenotyping by flow cytometry cited in this report (if any) were determined by the Surgical Pathology Department at [facility] as part of an ongoing software quality automation engineer program and in compliance with federally mandated [...] characteristics determined by the Surgical Pathology Department [facility]. It has not been cleared or approved by the U. [place]. Food and Drug Administration. Note for decalcified specimens: This assay has not been validated on decalcified tissues. Results should be interpreted with caution given the possibility of false negativity on decalcified specimens Carlos Magana MD LAB PATHOLOGY ORDERABLES Final Result Performing Organization Address City/State/[facility] Co de Phone Number PATHOLOGY [facility] ([facility] [address] [place] [address] * XR Pelvis Ortho View (08/22/2024 11:07 [...] Ze Martino D.O. AP: AP Report ID: [id number] Reading Location: [id number] Procedure Note Ze Martino DO - 08/22/2024 EXAM DESCRIPTION: XR PELVIS [...] Ze Martino D.O. AP: AP Report ID: [id number] Reading Location: [id number] us Cee VAUGHN IMG XR PROCEDURES Fin al Result * FL Fluoroscopy < 1 Hour (08/22/2024 10:32 AM CDT) Narrative [facility] - 08/22/2024 10:33 AM CDT The images from this study are not interpreted by Radiology. Please refer to the physician's procedure / OR operative note. us Carlos Magana MD IMG FLUOROSCOPY PROCEDUR ES [...] Shaila Schaffer D.O. PS: PS Report ID: [id number] Reading Location: [id number] Procedure Note Shaila Schaffer, - 08/22/2024 EXAM [...] Shaila Schaffer D.O. PS: PS Report ID: [id number] Reading Location: [id number] Carlos Magana MD IMG XR PROCEDURES Final Result * [place] AN ELECTIVE ENDOTRACHEAL AIRWAY (08/22/2024 9:18 AM CDT) Jaime Williamson, - 08/22/2024 9:18 AM CDT Jaime Menard DO 08/22/2024 9:19 AM Airway Patient location: OR [...] ORDERABLES Fin al Result Performing Organization Address City/[facility] Co de Phone Number [facility] ([place]) [address] [facility] [place] [address] * Protime-INR (08/22/2024 7:20 AM CDT) PT 10.4 9.7 - 13.0 sec [facility] ([place]) INR 0.96 0.90 - 1.20 [facility] ([place]) Comment: Interpretive data Oral anticoagulant therapeutic ranges: Venous thromboembolism prophylaxis or treatment: 2.0-3.0 CARDIOLOGY Standard range: 2.0-3.0 High-intensity range: 2.5-3.5 Refer to indication-specific guidelines for appropriate target ranges for prosthetic heart valve replacement. Current interpretive data was last revised on 2019. Blood 08/22/2024 7:20 AM CDT 08/22/2024 7:23 AM CDT Carlos Magana MD LAB BLOOD ORDERABLES Fin al Result Performing Organization Address City/[facility] Co de Phone Number [facility] ([place]) [address] [facility] [place] [address] * US Breast Right Limited (08/12/2024 1:16 PM CDT) Anatomical Region Laterality Modality Breast Right Ultrasound 08/13/2024 3:30 PM CDT Impressions 08/13/2024 3:30 PM CDT The findings are consistent with resolution of a hematoma. No imaging findings to suggest malignancy are seen. The patient may return to screening mammography as per ACR guidelines. OVERALL FINAL ASSESSMENT: [id number] Electronically signed by: Julissa Brenner M.D. Narrative [...] as per ACR guidelines. OVERALL FINAL ASSESSMENT: [id number] Electronically signed by: Julissa Brenner M.D. Narrative [...] PM - Electronically signed by Wili Mcconnell M.D. JR: Report ID: [id number] Reading Location: [id number] Procedure Note Wili Mcconnell MD - 07/31/2024 [...] PM - Electronically signed by Wili Mcconnell M.D. JR: Report ID: [id number] Reading Location: [place] [address] Carlos Magana MD IMG XR PROCEDURES Final Result * ECG 12 lead (07/29/2024 12:37 PM CDT) 07/29/2024 12:3 9 PM CDT Narrative [facility] - 07/29/2024 12:46 PM CDT Vent Rate: 89 bpm RR Interval: 672 msec NH Interval: 194 msec QRS Duration: 87 msec QT Interval: 334 msec QTC Interval: 380 msec P-R-T Jordan: 56 - -14 - 54 degrees IMPRESSION: SINUS RHYTHM LEFT ATRIAL ENLARGEMENT [-0.15mV P-WAVE IN V1/V2] INFERIOR MYOCARDIAL INFARCTION , OF INDETERMINATE AGE [40+ ms Q WAVE AND/OR ST/T ABNORMALITY IN II/aVF] ABNORMAL ECG Electronically Signed By: Satish Pérez MD Carlos Magana MD ECG ORDERABLES Final Re sult [facility] * eGFR (07/29/2024 12:17 PM CDT) eGFR [...] BLOOD ORDERABLES Fin al Result [facility] ([place]) 1 [facility] [place] [address] * Differential, auto (07/29/2024 12:17 PM CDT) [...] revised on 2017. Monocyte pct 11.1 % [facility] ([place]) Comment: Interpretive Data Percent cell count reference ranges are not reported, since discordance with absolute values may lead to misinterpretation of CBC data. Current Interpretive Data was last revised on 2017. Eosinophil pct 3.1 % [facility] R [facility] ([place]) Comment: Interpretive Data Percent cell count reference ranges are not reported, since discordance with absolute values may lead to misinterpretation of CBC data. Current Interpretive Data was last revised on 2017. Basophil pct 0.8 % [facility] ([place]) Comment: Interpretive Data Percent cell count reference ranges are not reported, since discordance with absolute values may lead to misinterpretation of CBC data. Current Interpretive Data was last revised on 2017. Blood 07/29/2024 12:1 7 PM CDT 07/29/2024 12:44 PM CDT us Carlos Magana MD LAB BLOOD ORDERABLES Fin al Result [facility] ([place]) 1 [facility] [place] [address] * (ABNORMAL) Urinalysis reflex to microscopic and culture Urine (07/29/2024 12:17 PM CDT) Color, ur Yellow Yellow Clarity, ur Clear Clear [facility] Estrada ([place]) Specific gravity, ur 1.024 1.003 - 1.030 [facility] ([place]) pH, urine 5.5 [facility] ([place]) Comment: Interpretive Data U rine pH is affected by diet, medications, systemic acid-base disturbances, and renal tubular function. pH may affect urinary stone formation. For example, urine pH below 6.0 may help reduce the tendency for calcium phosphate stones and pH greater than 6.0 may reduce the tendency for uric acid stone formation. Source: [facility] Current Interpretive Data was last revised on [...] 7 PM CDT 07/29/2024 2:25 PM CDT us Carlos Magana MD LAB MICROBIOLOGY - GENER AL ORDERABLES Final Result [facility] 1 [facility] [place] [address] * (ABNORMAL) CBC with auto differential (07/29/2024 [...] RDW SD 46.5 35.7 - 48.1 fL [facility] ([place]) NRBC abs 0.00 0.00 - 0.01 K/cumm [facility] ([place]) Blood 07/29/2024 12:1 7 PM CDT 07/29/2024 12:44 PM CDT Carlos Magana MD LAB BLOOD ORDERABLES Fin al Result Performing Organization Address [facility] de Phone Number [facility] ([place]) 1 [place] [address] * (ABNORMAL) Urinalysis, microscopic only (07/29/2024 12:17 PM CDT) WBC, ur 6-10(A) 0 - 5 /HPF RBC, ur 3-5(A) 0 - 2 /HPF [facility] ([place]) Epithelial cells, squamous, ur 1-5 0 - 5 /HPF [facility] ([place]) Mucous, ur Present(A) [facility] ([place]) Culture Reflex Comment Reflex conditions for urine culture (WBC >10) not met. [facility] ([place]) Urine 07/29/2024 12:1 7 PM CDT 07/29/2024 2:25 PM CDT Carlos Magana MD LAB URINE ORDERABLES Fin al Result Performing Organization Address [facility] de Phone Number [facility] ([place]) [address] [place] [address] * Hemoglobin A1c (07/29/2024 12:17 PM CDT) Hgb A1C 5.5 4.0 - 5.6 % Estimated Average Glucose 111 mg/dL [facility] ([place]) Comment: The ADA recommends reporting an estimated Average Glucose (eAG) with all Hemoglobin A1c results using the equation derived from a study of 507 normal and diabetic adults. Minority populations were underrepresented and children were not included. (Diabetes Care 31:9381-8557, 2008). The eAG is not equivalent to a fasting glucose. Blood 07/29/2024 12:1 7 PM CDT 07/29/2024 12:44 PM CDT us Carlos Magana MD LAB BLOOD ORDERABLES Fin al Result [facility] ([place]) 1 [facility] Department [place] [address] * (ABNORMAL) Comprehensive metabolic panel (07/29/2024 12:17 [...] classification and Diagnosis of Diabetes Diabetes Care 2021; 46: S19-S40. Current interpretive data was last [...] ([place]) AST 19 10 - 45 Units/L [facility] ([place]) Blood 07/29/2024 12:1 7 PM CDT 07/29/2024 12:44 PM CDT Carlos Magana MD LAB BLOOD ORDERABLES Fin al Result [facility] ([place]) 1 [facility] [place] [address] * Screening Mammogram Bilateral W Sergio (12/14/2023 [...] Bone mineral density was performed on a Consult A Doctor Discovery Densitometer. Based on machine cross-calibration and [...] by the International Society of Clinical Densitometry. [id number] Marbella Wood DO [facility] DXA PROCEDURES Ruth l Result * COLONOSCOPY (07/12/2022 7:14 AM CDT) Anatomical Region Laterality Modality Other Narrative Procedure Note Cristobal Osorio MD - 07/12/2022 7:14 AM CDT [facility] Patient Name: Abimbola Martines Procedure Date: 07/12/2022 7:14 AM Date of : 1945 Admit Type: Outpatient Age: 76 Gender: Female Attending MD: Cristobal Osorio M.D. Room: [facility] 2 Note Status: Finalized Patient [...] procedure were verified by the physician, the infant caregiver and the dental equipment technician in the endoscopy suite. Mental Status [...] passed under direct vision.The Pediatric Colonoscope [id number]-[id number] was introduced through the anus and advanced [...] 7:14 AM Procedure Code(s): --- Professional --- 13518, Colonoscopy, flexible; with biopsy, single or multiple --- Technical --- 38385, Colonoscopy, flexible; with biopsy, single or multiple [...] perforation orabscess without bleeding CPT copyright 2020 [employer]. All rights reserved. The codes documented in this report are preliminary and upon steeping press tender reviewmay be revised to meet current compliance requirements. Recognized by the [employer] Society for Gastrointestinal Endoscopy for promoting quality in endoscopy Cristobal Osorio MD ENDOSCOPY PROCEDURES Final Resul t * Hepatitis C antibody (11/12/2018 12:08 PM CDT) Hep C Ab Nonreactive Nonreactive [facility] Comment: Interpretive Data Positive results should be confirmed by a molecular method. If positive, a second separately collected sample should be submitted for Hepatitis C Virus (HCV) RNA Detection and Quantitation by Real-Time Reverse Delivery Room Supervisor-PCR (RT-PCR). Current interpretive data was last revised on 2016. Blood specimen (specimen) 11/12/2018 12:08 PM CDT 11/12/2018 5:35 PM CDT Brandi Tillman MD LAB MICROBIOLOGY - GEN ERAL ORDERABLES Edited Result - Final [facility] [address] [place] [address] from Last 3 Months or Most Recently Relevant to Health Maintenance Additional Health Concerns Active Problems Noted Date Diagnosed Date Autogenerated Problem 08/23/2024 Insurance MEDICARE [facility] FEDERAL MEDICARE [facility] FEDERAL MEDICARE [facility] Advance Directives For more information, please contact: [phone] Documents on File Type Date Recorded Patient Redeye Gunner Expl anation ADVANCE DIRECTIVE 07/18/2018 6:32 AM [...] 9:01 AM 06/07/2022 9:01 AM Care Teams Manager Of Pharmacy Relationship Specialty Start Date End Date Ej Madden MD [address] [facility] [address] [place] [address] PCP - General Family Practice 01/28/24 Romelia Martinez, RN Registered Nurse Pain Management 05/22/17 Marbella Wood DO [address] [facility] [address] [place] [address] Consulting Physician Endocrinology Diabetes & Metabolism 06/07/20 Lionel Santo MD [address] [place] [address] Referring Physician Geriatric Psychiatry 02/13/22 Jaime Sampson MD [address] [facility] [address] [place] [address] Referring Physician Transplant Hepatology 02/13/22 Miguel Fall MD [address] [facility] [address] [place] [address] Consulting Physician Physical Medicine and Rehabilitation 02/13/22 Benitez Solano, OT Occupational Therapist Occupational Therapy 08/20/24 Carlos Magana MD [address] [place] [address] [address] [place] [address] Surgeon Orthopedic Surgery 08/22/24
--- OUTSIDE RECORDS SUMMARY | 2024-10-18 11:20 | XMS_ITS | Encounter Summary ---
Author Organization [facility] Address [address] [place] [address] Phone Care Team Providers Care Book Or Script Editor Name Role Phone Brandi Tillman MD Primary Care Provider Brandi Tillman MD Primary Care Provider Brandi Tillman MD Primary Care Provider Brandi Tillman MD Primary Care Provider Million, Rosa VAUGHN Primary Care Provider [phone] Brandi Tillman MD Primary Care Provider Million, Rosa VAUGHN Primary Care Provider [phone] Brandi Tillman MD Primary Care Provider Million, Rosa VAUGHN Primary Care Provider [phone] Brandi Tillman MD Primary Care Provider Million, Rosa VAUGHN Primary Care Provider [phone] Brandi Tillman MD Primary Care Provider Unknown, Notinfile Primary Care Provider Unavail able Brandi Tillman MD Unavailable [phone] Romelia Martinez RN Unavailable Unavailab Agatha Carl RN Unavailable + [phone] Isaura Bowie RN Unavailable [phone] Brandi Tillman MD Primary Care Provider NinaMarbella veloz Unavailable [phone] Agatha Smith MD Primary Care Provider Lionel Santo MD Unavailable Jaime Sampson MD Unavailable [phone] Miguel Fall MD Unavailable [phone] No, Physician Primary Care Provider Ej Madden MD Primary Care Provi rama Benitez Solano OT Unavailable Unavailable Carlos Magana MD Unavailable [phone] Encounter Details Date Type Department Care Team (Latest Contact Info) Description 06/27/2002 Orders Only [facility] EML Scanning, Provider Social History Tobacco Use Types Packs/Day Years Used Date Smoking Tobacco: Never Assessed Comments Unknown Sex and Gender Information Value Date Recorded Sex Assigned at Not on file 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 Gender Identity Not on file Sexual Orientation [...] on filedocumented in this encounter Care Teams Book Or Script Editor Relationship Specialty Start Date End Date Brandi [...] [facility] [address] [place], [place] [id number] PCP - General Family Practice 02/13/22 12/13/23 No, Physician PCP - General 12/14/23 01/27/24 Ej Madden MD [address] [address] PCP - General Family Practice 01/28/24 Brandi Tillman MD Internal Medicine 09/16/18 02/12/22 Romelia Martinez, SMITHA Registered Nurse Pain Management 05/22/17 Agatha Orozco, SMITHA [address] [place], [place] [id number] Floating Labor Gang Supervisor 12/26/18 06/13/20 Isaura Bowie, RN [address] [place], [place] [id number] Secondary Liver Coordinator 12/26/18 06/13/20 Marbella Wood DO [address] [facility] [address] [place], [place] [id number] Consulting Physician Endocrinology Diabetes & Metabolism 06/07/20 Lionel Santo MD [address] [place] [address] Referring Physician Geriatric Psychiatry 02/13/22 Jaime Sampson MD [address] [facility] [address] [place] [address] Referring Physician Transplant Hepatology 02/13/22 Miguel Fall MD [address] [facility] [address] [place] [address] Consulting Physician Physical Medicine and Rehabilitation 02/13/22 Benitez Solano, OT Occupational Therapist Occupational Therapy 08/20/24 Carlos Magana MD [address] [place] [address] Surgeon Orthopedic Surgery 08/22/24 documented as of this encounter
--- OUTSIDE RECORDS SUMMARY | 2024-10-18 11:20 | XMS_ITS | Encounter Summary ---
Author Organization [facility] Address [address] [place] [address] Phone Care Team Providers Care Armoured Car Escort Name Role Phone Brandi Tillman MD Primary Care Provider Brandi Tillman MD Primary Care Provider Brandi Tillman MD Primary Care Provider Brandi Tillman MD Primary Care Provider Million, Rosa VAUGHN Primary Care Provider [phone] Brandi Tillman MD Primary Care Provider Million, Rosa VAUGHN Primary Care Provider [phone] Brandi Tillman MD Primary Care Provider Million, Rosa VAUGHN Primary Care Provider [phone] Brandi Tillman MD Primary Care Provider Million, Rosa VAUGHN Primary Care Provider [phone] Brandi Tillman MD Primary Care Provider Unknown, Notinfile Primary Care Provider Unavail able Brandi Tillman MD Unavailable [phone] Romelia Martinez RN Unavailable Unavailab Agatha Carl RN Unavailable + [phone] Isaura Bowie RN Unavailable [phone] Brandi Tillman MD Primary Care Provider NinaMarbella veloz Unavailable [phone] Agatha Smith MD Primary Care Provider Lionel Santo MD Unavailable Jaime Sampson MD Unavailable [phone] Miguel Fall MD Unavailable [phone] No, Physician Primary Care Provider Ej Madden MD Primary Care Provi rama Benitez Solano OT Unavailable Unavailable Carlos Magana MD Unavailable [phone] Encounter Details Date Type Department Care Team (Latest Contact Info) Description 11/16/2005 Orders Only [facility] EML Scanning, Provider Social History Tobacco Use Types Packs/Day Years Used Date Smoking Tobacco: Never Assessed Comments Unknown Sex and Gender Information Value Date Recorded Sex Assigned at Not on file 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 Gender Identity Not on file Sexual [...] on filedocumented in this encounter Care Teams Armoured Car Escort Relationship Specialty Start Date End Date Brandi [...] [facility] [address] [place], [place] [id number] PCP - General Family Practice 02/13/22 12/13/23 No, Physician PCP - General 12/14/23 01/27/24 Ej Madden MD [address] [address] PCP - General Family Practice 01/28/24 Brandi Tillman MD Internal Medicine 09/16/18 02/12/22 Romelia Martinez, SMITHA Registered Nurse Pain Management 05/22/17 Agatha Orozco, SMITHA [address] [place], [place] [id number] Certified Medical Asst 12/26/18 06/13/20 Isaura Bowie, RN [address] [place], [place] [id number] Secondary Liver Coordinator 12/26/18 06/13/20 Marbella Wood DO [address] [facility] [address] [place], [place] [id number] Consulting Physician Endocrinology Diabetes & Metabolism 06/07/20 Lionel Santo MD [address] [place] [address] Referring Physician Geriatric Psychiatry 02/13/22 Jaime Sampson MD [address] [facility] [address] [place] [address] Referring Physician Transplant Hepatology 02/13/22 Miguel Fall MD [address] [facility] [address] [address] [place] [address] Consulting Physician Physical Medicine and Rehabilitation 02/13/22 Benitez Solano, OT Occupational Therapist Occupational Therapy 08/20/24 Carlos Magana MD [address] [place] [address] Surgeon Orthopedic Surgery 08/22/24 documented as of this encounter
--- OUTSIDE RECORDS SUMMARY | 2024-10-18 11:20 | XMS_ITS | Encounter Summary ---
Author Organization [facility] Address [address] [place] [address] Phone Care Team Providers Care Retail Loss Prevention Officer Name Role Phone Brandi Tillman MD Primary Care Provider Brandi Tillman MD Primary Care Provider Brandi Tillman MD Primary Care Provider Brandi Tillman MD Primary Care Provider Million, Rosa VAUGHN Primary Care Provider [phone] Brandi Tillman MD Primary Care Provider Million, Rosa VAUGHN Primary Care Provider [phone] Brandi Tillman MD Primary Care Provider Million, Rosa VAUGHN Primary Care Provider [phone] Brandi Tillman MD Primary Care Provider Million, Rosa VAUGHN Primary Care Provider [phone] Brandi Tillman MD Primary Care Provider Unknown, Notinfile Primary Care Provider Unavail able Brandi Tillman MD Unavailable [phone] Romelia Martinez RN Unavailable Unavailab Agatha Carl RN Unavailable + [phone] Isaura Bowie RN Unavailable [phone] Brandi Tillman MD Primary Care Provider NinaMarbella veloz Unavailable [phone] Agatha Smith MD Primary Care Provider Lionel Santo MD Unavailable Jaime Sampson MD Unavailable [phone] Miguel Fall MD Unavailable [phone] No, Physician Primary Care Provider Ej Madden MD Primary Care Provi rama Benitez Solano OT Unavailable Unavailable Carlos Magana MD Unavailable [phone] Encounter Details Date Type Department Care Team (Latest Contact Info) Description 12/19/2007 Orders Only [facility] EML Scanning, Provider Social History Tobacco Use Types Packs/Day Years Used Date Smoking Tobacco: Never Assessed Comments Unknown Sex and Gender Information Value Date Recorded Sex Assigned at Not on file Legal 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 [address] [place], [place] [id number] PCP - General Family Practice 02/13/22 12/13/23 No, Physician PCP - General 12/14/23 01/27/24 Ej Madden MD [address] [address] PCP - General Family Practice 01/28/24 Brandi Tillman MD Internal Medicine 09/16/18 02/12/22 Romelia Martinez, SMITHA Registered Nurse Pain Management 05/22/17 Agatha Orozco, SMITHA [address] [place], [place] [id number] Lens Fabricating Machine Tender 12/26/18 06/13/20 Isaura Bowie, RN [address] [place], [place] [id number] Secondary Liver Coordinator 12/26/18 06/13/20 Marbella Wood DO [address] [facility] [address] [place], [place] [id number] Consulting Physician Endocrinology Diabetes & Metabolism 06/07/20 Lionel Santo MD [address] [place] [address] Referring Physician Geriatric Psychiatry 02/13/22 Jaime Sampson MD [address] [facility] [address] [place] [address] Referring Physician Transplant Hepatology 02/13/22 Miguel Fall MD [address] [facility] [address] [place] [address] Consulting Physician Physical Medicine and Rehabilitation 02/13/22 Benitez Solano, OT Occupational Therapist Occupational Therapy 08/20/24 Carlos Magana MD [address] [place] [address] Surgeon Orthopedic Surgery 08/22/24 documented as of this encounter
--- OUTSIDE RECORDS SUMMARY | 2024-10-18 11:20 | XMS_ITS | Encounter Summary ---
Author Organization [facility] Address [address] [place] [address] Care Team Providers Care Systems Eng Name Role Phone Brandi Tillman MD Unavailable [phone] Romelia Martinez RN Unavailable Unavailab Brandi Downs MD Primary Care Provider Marbella Wood DO Unavailable [phone] Agatha Smith MD Primary Care Provider Lionel Santo MD Unavailable Jaime Sampson MD Unavailable [phone] Miguel Fall MD Unavailable [phone] No, Physician Primary Care Provider [phone] Ej Madden MD Primary Care Provi rama Benitez Solano OT Unavailable Unavailable Calros Magana MD Unavailable [phone] Encounter Details Date Type Department Care Team (Late st Contact Info) Description 04/13/2021 Telephone 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 Gender Identity Not on file Sexual Orientation [...] on filedocumented in this encounter Care Teams Systems Eng Relationship Specialty Start Date End Date Brandi Tillman MD PCP - General Internal Medicine 01/01/19 02/12/22 Agatha Smith MD [address] [facility] [address] [place] [address] PCP - General Family Practice 02/13/22 12/13/23 No, Physician PCP - General 12/14/23 01/27/24 Ej Madden MD [address] [address] PCP - General Family Practice 01/28/24 Brandi Tillman MD Internal Medicine 09/16/18 02/12/22 Romelia Martinez, RN Registered Nurse Pain Management 05/22/17 Marbella Wood DO [address] [place] [address] Consulting Physician Endocrinology Diabetes & Metabolism 06/07/20 Lionel Santo MD [address] [place] [address] Referring Physician Geriatric Psychiatry 02/13/22 Jaime Sampson MD 1 [facility] [address] [place] [address] Referring Physician Transplant Hepatology 02/13/22 Miguel Fall MD [address] [facility] [address] [place] [address] Consulting Physician Physical Medicine and Rehabilitation 02/13/22 Benitez Solano OT Occupational Therapist Occupational Therapy 08/20/24 Carlos Magana MD [address] [place] [address] [address] [place] [address] Surgeon Orthopedic Surgery 08/22/24 documented as of this encounter
--- OUTSIDE RECORDS SUMMARY | 2024-10-18 11:20 | XMS_ITS | Encounter Summary ---
Author Organization [facility] Address [address] [place] [address] Phone Care Team Providers Care Senior Electrical Controls Engineer Name Role Phone Brandi Tillman MD Primary Care Provider Brandi Tillman MD Primary Care Provider Brandi Tillman MD Primary Care Provider Brandi Tillman MD Primary Care Provider Million, Roas VAUGHN Primary Care Provider [phone]- [phone] Brandi Tillman MD Primary Care Provider Million, Rosa VAUGHN Primary Care Provider [phone]- [phone] Brandi Tillman MD Primary Care Provider Million, Rosa VAUGHN Primary Care Provider [phone]- [phone] Brandi Tillman MD Primary Care Provider Million, Rosa VAUGHN Primary Care Provider [phone]- [phone] Brandi Tillman MD Primary Care Provider Unknown, Notinfile Primary Care Provider Unavail able Brandi Tillman MD Unavailable [phone] Romelia Martinez RN Unavailable Unavailab Agatha Carl RN Unavailable + [phone] Isaura Bowie RN Unavailable [phone] Brandi Tillman MD Primary Care Provider Nina Marbella Cheung Unavailable +[phone] Agatha Smith MD Primary Care Provider Lionel Santo MD Unavailable [phone] Jaime Sampson MD Unavailable [phone] Miguel Fall MD Unavailable [phone] No, Physician Primary Care Provider Ej Madden MD Primary Care Provi rama Benitez Solano OT Unavailable Unavailable Carlos Magana MD Unavailable [phone] Encounter Details Date Type Department Care Team (Latest Contact Info) Description 01/10/2012 Orders Only [facility] EML Scanning, Provider Social History Tobacco Use Types Packs/Day Years Used Date Smoking Tobacco: Never Assessed Comments Unknown Sex and Gender Information Value Date Recorded Sex Assigned at Not on file Legal 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 Gender Identity Not on file Sexual Orientation [...] on filedocumented in this encounter Care Teams Senior Electrical Controls Engineer Relationship Specialty Start Date End Date Brandi [...] 01/01/19 02/12/22 Agatha Smith MD [address] [facility] [address] [place], [place] [id number] PCP - General Family Practice 02/13/22 12/13/23 No, Physician PCP - General 12/14/23 01/27/24 Ej Madden MD [address] [address] PCP - General Family Practice 01/28/24 Brandi Tillman MD Internal Medicine 09/16/18 02/12/22 Romelia Martinez, SMITHA Registered Nurse Pain Management 05/22/17 Agatha Orozco, SMITHA [address] [place], [place] [id number] University Extension Specialist 12/26/18 06/13/20 Isaura Bowie, RN [address] [place], [place] [id number] Secondary Liver Coordinator 12/26/18 06/13/20 Marbella Wood DO [address] [facility] [address] [place], [place] [id number] Consulting Physician Endocrinology Diabetes & Metabolism 06/07/20 Lionel Santo MD [address] [place] [address] Referring Physician Geriatric Psychiatry 02/13/22 Jaime Sampson MD [address] [facility] [facility] [address] [place] [address] Referring Physician Transplant Hepatology 02/13/22 Miguel Fall [facility] [address] [facility] [address] [place] [address] Consulting Physician Physical Medicine and Rehabilitation 02/13/22 Benitez Solano, OT Occupational Therapist Occupational Therapy 08/20/24 Carlos Magana MD [address] [place] [address] Surgeon Orthopedic Surgery 08/22/24 documented as of this encounter
--- OUTSIDE RECORDS SUMMARY | 2024-10-18 11:20 | XMS_ITS | Clinical Summary ---
Author Organization [facility] [email or web address] Address [address] [facility] [place] [address] Care Team Providers Care Etcher Printed Circuit Boards Name Role Phone Ej Fitzgerald DO Primary Care Provider + Source Comments [facility] [email or web address],non-owned Affiliates and Associated Physician Practices is amultiple site organization consisting of ambulatory clinics and hospital sitesin [place], [place], [place] and [place]. This disclosure is being madepursuant to the Care Everywhere program and may not contain all information available regarding this patient. 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 Gender Identity Not on file Sexual Orientation Not on file Last Filed Vital Signs Vital Sign Reading Time Taken Comments Blood Pressure 121/85 05/15/2024 10:59 AM CDT Pulse 85 05/15/2024 10:59 AM CDT Temperature 36.7 C (98 F) 07/24/2023 9:19 AM CDT Respiratory Rate 20 02/21/2022 9:24 AM HEALTHCARE ACCOUNT MANAGER Oxygen Saturation 96% 09/20/2023 9:28 AM CDT [...] Visit [facility] [address] [facility], [facility] [place] [id number] Aj Israel MD [address] [place] [address] Health Maintenance Due Date Last Done Comments [...] complete this topic Insurance MEDICARE [facility] MEDICARE [facility] MEDICARE [facility] Address: [facility] [address] [place] [address] Advance Directives * Full Code (Latest Code Status on File) Date Activated Date Inactivated Comments 01/14/2021 12:40 AM 01/15/2021 12:59 PM Care Teams Etcher Printed Circuit Boards Relationship Specialty Start Date End Date Ej Fitzgerald DO [address] [place] [address] PCP - General Internal Medicine 04/30/24
--- OUTSIDE RECORDS SUMMARY | 2024-10-18 11:20 | XMS_ITS | Encounter Summary ---
Author Organization [facility] Address [address] [place] [address] Phone Care Team Providers Care Pickling Operator Name Role Phone Brandi Tillman MD Primary Care Provider Brandi Tillman MD Primary Care Provider Brandi Tillman MD Primary Care Provider Brandi Tillman MD Primary Care Provider Million, Rosa VAUGHN Primary Care Provider [phone] Brandi Tillman MD Primary Care Provider Million, Rosa VAUGHN Primary Care Provider [phone] Brandi Tillman MD Primary Care Provider Million, Rosa VAUGHN Primary Care Provider [phone] Brandi Tillman MD Primary Care Provider Million, Rosa VAUGHN Primary Care Provider [phone] Brandi Tillman MD Primary Care Provider Unknown, Notinfile Primary Care Provider Unavail able Brandi Tillman MD Unavailable [phone] Romelia Martinez RN Unavailable Unavailab Agatha Carl RN Unavailable + [phone] Isaura Bowie RN Unavailable [phone] Brandi Tillman MD Primary Care Provider Nina Marbella Cheung Unavailable [phone] Agatha Smith MD Primary Care Provider Lionel Santo MD Unavailable Jaime Sampson MD Unavailable [phone] Miguel Fall MD Unavailable [phone] No, Physician Primary Care Provider Ej Madden MD Primary Care Provi rama Benitez Solano OT Unavailable Unavailable Carlos Magana MD Unavailable [phone] Encounter Details Date Type Department Care Team (Latest Contact Info) Description 01/05/2010 Orders Only [facility] EML Scanning, Provider Social History Tobacco Use Types Packs/Day Years Used Date Smoking Tobacco: Never Assessed Comments Unknown Sex and Gender Information Value Date Recorded Sex Assigned at Not on file Legal Sex 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 Gender Identity Not on file Sexual Orientation [...] on filedocumented in this encounter Care Teams Pickling Operator Relationship Specialty Start Date End Date Brandi [...] Medicine 01/01/19 02/12/22 Agatha Smith MD [address] [facility] [address] [place], [place] [phone] PCP - General Family Practice 02/13/22 12/13/23 No, Physician PCP - General 12/14/23 01/27/24 Ej Madden MD [address] [address] PCP - General Family Practice 01/28/24 Brandi Tillman MD Internal Medicine 09/16/18 02/12/22 Romelia Martinez, SMITHA Registered Nurse Pain Management 05/22/17 Agatha Orozco, SMITHA [address] [place], [place] [phone] Candy Starch Mold Printer 12/26/18 06/13/20 Isaura Bowie, RN [address] [place], [place] [id number] Secondary Liver Coordinator 12/26/18 06/13/20 Marbella Wood DO [address] [facility] [address] [place], [place] [id number] Consulting Physician Endocrinology Diabetes & Metabolism 06/07/20 Lionel Santo MD [address] [place] [address] Referring Physician Geriatric Psychiatry 02/13/22 Jaime Sampson MD [address] [facility] [address] [place] [address] Referring Physician Transplant Hepatology 02/13/22 Miguel Fall MD [address] [facility] [address] [place] [address] Consulting Physician Physical Medicine and Rehabilitation 02/13/22 Benitez Solano, OT Occupational Therapist Occupational Therapy 08/20/24 Carlos Magana MD [address] [place] [address] Surgeon Orthopedic Surgery 08/22/24 documented as of this encounter
--- OUTSIDE RECORDS SUMMARY | 2024-10-18 11:20 | XMS_ITS | Encounter Summary ---
Author Organization [facility] Address [address] [place] [address] Phone Care Team Providers Care Media Traffic Manager Name Role Phone Brandi Tillman MD Primary Care Provider Brandi Tillman MD Primary Care Provider Brandi Tillman MD Primary Care Provider Brandi Tillman MD Primary Care Provider Million, Rosa VAUGHN Primary Care Provider [phone] Brandi Tillman MD Primary Care Provider Million, Rosa VAUGHN Primary Care Provider [phone]- [phone] Brandi Tillman MD Primary Care Provider Million, Rosa VAUGHN Primary Care Provider [phone] Brandi Tillman MD Primary Care Provider Million, Rosa VAUGHN Primary Care Provider [phone] Brandi Tillman MD Primary Care Provider Unknown, Notinfile Primary Care Provider Unavail able Brandi Tillman MD Unavailable [phone] Romelia Martinez RN Unavailable Unavailab Agatha Carl RN Unavailable + [phone] Isaura Bowie RN Unavailable [phone] Brandi Tillman MD Primary Care Provider NinaMarbella veloz Unavailable [phone] Agatha Smith MD Primary Care Provider Lionel Santo MD Unavailable Jaime Sampson MD Unavailable [phone] Miguel Fall MD Unavailable [phone] No, Physician Primary Care Provider Ej Madden MD Primary Care Provi rama Benitez Solano OT Unavailable Unavailable Carlos Magana MD Unavailable [phone] Encounter Details Date Type Department Care Team (Latest Contact Info) Description 06/05/2001 Orders Only [facility] IM EML Scanning, Provider Social History Tobacco Use Types Packs/Day Years Used Date Smoking Tobacco: Never Assessed Comments Unknown Sex and Gender Information Value Date Recorded Sex Assigned at Not on file Legal 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 Gender Identity Not on file Sexual Orientation [...] on filedocumented in this encounter Care Teams Media Traffic Manager Relationship Specialty Start Date End Date Brandi [...] [address] [facility] [address] [place], [place] [id number] PCP - General Family Practice 02/13/22 12/13/23 No, Physician PCP - General 12/14/23 01/27/24 Ej Madden MD [address] [address] PCP - General Family Practice 01/28/24 Brandi Tillman MD Internal Medicine 09/16/18 02/12/22 Romelia Martinez, SMITHA Registered Nurse Pain Management 05/22/17 Agatha Orozco, SMITHA [address] [place], [place] [phone] Commercial Center Manager 12/26/18 06/13/20 Isaura Bowie, RN [address] [place], [place] [phone] Secondary Liver Coordinator 12/26/18 06/13/20 Marbella Wood DO [address] [facility] [address] [place], [place] [phone] Consulting Physician Endocrinology Diabetes & Metabolism 06/07/20 Lionel Santo MD [address] [place] [address] Referring Physician Geriatric Psychiatry 02/13/22 Jaime Sampson MD [address] [facility] [address] [place] [address] Referring Physician Transplant Hepatology 02/13/22 Miguel Fall MD [address] [facility] [address] [place] [address] Consulting Physician Physical Medicine and Rehabilitation 02/13/22 Benitez Solano, OT Occupational Therapist Occupational Therapy 08/20/24 Carlos Magana MD [address] [place] [address] Surgeon Orthopedic Surgery 08/22/24 documented as of this encounter
[2024-10-18 11:26] VITALS: BP 134/80; PULSE 98; RESP 20; TEMP 36.8; O2SAT 100
--- NOTE | 2024-10-18 11:30 | ED.WOUNDLAC ---
HPI - Wound/Laceration General Chief Complaint: Wound/Laceration Stated Complaint: stitches removal Source: patient and RN notes reviewed Mode of arrival: ambulatory Limitations: no limitations Related Data Home Medications ?Medication ?Instructions ?Recorded ?Confirmed ?Last Taken ?Type aspirin 81 mg tablet,delayed 81 mg PO DAILY 01/04/21 03/16/21 Unknown History release (Adult Aspirin Regimen) bupropion HCl 300 mg 24 hr tablet, 300 mg PO QAM 01/04/21 03/16/21 Unknown History extended release (Wellbutrin XL) ibandronate 150 mg tablet (Boniva) 150 mg PO MONTHLY 01/04/21 03/16/21 Unknown History levothyroxine 50 mcg tablet 50 mcg PO DAILY 01/04/21 03/16/21 Unknown History (Synthroid) liothyronine 5 mcg tablet (Cytomel) 5 mcg PO DAILY 01/04/21 03/16/21 Unknown History lorazepam 1 mg tablet 1 mg PO DAILY PRN 01/04/21 03/16/21 Unknown History turmeric 100 mg-arpit 150 cap PO 01/04/21 03/16/21 Unknown History mg-olive 50 mg-oreg 150 mg-capryl capsule vilazodone 40 mg tablet (Viibryd) 40 mg PO DAILY 01/04/21 03/16/21 Unknown History atorvastatin 40 mg tablet mg 10/18/24 Unknown History Allergies Allergy/AdvReac Type Severity Reaction Status Date / Time pneumococcal vaccine Allergy Unknown Rash Verified 10/11/24 20:47 Sulfa (Sulfonamide Allergy Unknown Rash Verified 10/11/24 20:47 Antibiotics) celecoxib (From Celebrex) Allergy Rash Verified 10/11/24 20:47 Review of Systems Review of Systems: CONSTITUTIONAL: Denies malaise, chills, sweats, or fever. SKIN: Reports laceration MUSCULOSKELETAL: Denies muscle skeletal pain NEUROLOGIC: Denies numbness, weakness All systems reviewed & are unremarkable except as noted in HPI and below PMFSH Past Medical History Medical History Nondisplaced fracture of lateral malleolus of left fibula Laureano A Nasal fracture Mass of kidney benign, robotic resection History of open sigmoidectomy Small bowel obstruction partial Osteoporosis Fibromyalgia Depression Anxiety Hypothyroidism Surgical History Surgical History H/O shoulder surgery right History of bladder suspension procedure Family History Family History Other Depression Social History Social History Smoking status: Never smoker Alcohol intake: never Living arrangements: with family Occupation/Education: retired Gender identity (if verbalized by the patient): Female Comments At time of signature, agree with nursing past medical, surgical, social and family history. There is no relevant family history pertinent to the presenting complaint Exam Narrative: GENERAL: Well-appearing, well-nourished, and in no acute distress. HEAD: Normocephalic EYES: PERRLA, conjunctivae clear NECK: Supple. CHEST: Speaks in full sentences. No respiratory distress. HEART: Regular rate and rhythm. Normal and equal peripheral pulses. EXTREMITIES: Right/Left hand and digits of hand have normal strength and sensation. 5/5 strength with digit flexion, extension. Range of motion normal. No clubbing, cyanosis, or edema noted. No tenderness. Skin intact. Normal digital cascade with flexion of fingers, median, ulnar and radial nerve intact. Normal sensation of each side of finger. Can perform 'okay' sign, 'cross over finger test of index and middle fingers' and 'thumbs up' sign. No scissoring. Normal thumb opposition. Good capillary refill and radial pulse. Distal capillary refill less than 3 seconds. Patient is right/left hand dominant SKIN: Warn, dry, intact, pink. No rash NEURO: Alert and oriented x3. PSYCH: Normal mood and affect Course Course Emergency Course: Patient is aware of diagnosis, understands and agrees to treatment plan. Anticipatory guidance given. Patient agrees to follow-up as directed and is aware of reasons to seek care at the emergency department. Portions of this record may have been created with voice recognition software Level of Care: Express Care Visit Vital Signs Vital signs: Reviewed. MDM - Wound/Laceration MDM Narrative Medical decision making narrative: Wound explored for foreign body and copious irrigation provided with no evidence of FB. Discussed the potential of retained foreign body with the patient and signs/symptoms that should prompt the patient to immediately go to the ED for reevaluation. The laceration was identified to be [XXX] cm in length and located at [XXX]. The laceration was cleansed with [XXX] and no debris was noted. Local anesthesia was obtained by injecting 1% lidocaine at the laceration site. The laceration was then irrigated with 500cc of high-pressure irrigation. The wound was explored and no foreign bodies were found. There was no evidence of tendon or nerve lacerations. The wound was closed with [ XXX suture type, number, and technique]. A sterile dressing was then applied and anticipatory guidance was provided. Tetanus prophylaxis [(was/was not)] given Differential Diagnosis Differential diagnosis: Likely laceration, abrasion and avulsion of skin Critical Care Time Critical Care Time Critical Care Time: No Discharge Plan Discharge Patient Language: Estonian Prescriptions: No Action atorvastatin 40 mg tablet bupropion HCl [Wellbutrin XL] 300 mg tablet extended release 24 hr 300 mg PO QAM Viibryd 40 mg tablet 40 mg PO DAILY Rx Instructions: must administer with a meal/food liothyronine [Cytomel] 5 mcg tablet 5 mcg PO DAILY levothyroxine [Synthroid] 50 mcg tablet 50 mcg PO DAILY lorazepam 1 mg tablet 1 mg PO DAILY PRN gjzysjse-sjqu-wtrke-oreg-capry 100 mg-150 mg- 50 mg-150 mg capsule PO aspirin [Adult Aspirin Regimen] 81 mg tablet,delayed release (DR/EC) 81 mg PO DAILY ibandronate [Boniva] 150 mg tablet 150 mg PO MONTHLY meclizine 25 mg tablet 25 mg PO BID PRN (Reason: dizziness) Qty: 10 0RF cephalexin 500 mg capsule 500 mg PO BID 5 Days Qty: 10 0RF Follow-up/Referrals: Maryanne,Ej Lam MD [Primary Care Provider, Unknown]
== END 2024-10-18 11:52 | disposition left against medical advice (07) ==
LOC: EXPBETH 11:21
PROVIDERS: Emergency Provider Nurse Practitioner; PCP Family Medicine
DX: Z53.21 Procedure and treatment not carried out due to patient leaving prior to being seen by health care provider (principal)
CPT/HCPCS: 99199